=== PATIENT | male | born 1955 | race Caucasian/White ===

== ENCOUNTER 2021-04-10 20:58 | Inpatient (IN) | payer MEDICAID, OTHER ==
[~2021-04-10] VITALS: Ht 185.4 cm; Wt 91.0 kg
[2021-04-10] MEDS ORDERED: SODIUM CHLORIDE 0.9% 1,000 ML IV ONE (21:30)
[2021-04-10] MEDS ORDERED: MORPHINE SULFATE 4 MG/ML SYR/VIAL IV ONE ×2 (21:30→23:30)
[2021-04-10 21:48] LABS: Basophils # (auto) 0.1 10 ^3/uL (0-0.2); Basophils % (auto) 0.7 % (0.0-2.0); Eosinophils # (auto) 0 10 ^3/uL (0-0.8); Eosinophils % (auto) 0.4 % (0.0-7.0); Hematocrit 40.5 % (41.0-53.0); Hemoglobin 13.4 g/dL (13.5-17.5); Lymphocytes # (auto) 1.1 10 ^3/uL (0.4-5.4); Mean Corpuscular Hemoglobin 30.2 pg (28.0-32.0); Mean Corpuscular Volume 91.6 fL (80.0-100.0); Monocytes # (auto) 0.5 10 ^3/uL (0-1.3); Monocytes % (auto) 4.6 % (0.0-12.0); Neutrophils # (auto) 9.5 10 ^3/uL (1.6-8.6); Neutrophils % (auto) 84.3 % (37.0-80.0); Red Blood Cells 4.42 10^6/uL (4.5-5.90); Red Cell Distribution Width 14.1 % (11.8-14.3); White Blood Cell 11.2 10^3/uL (4.4-10.8)
[2021-04-10 21:55] LABS: Albumin 3.5 g/dL (3.4-5.0); Calcium 9.4 mg/dL (8.5-10.1); Potassium 3.9 mmol/L (3.5-5.1)
[2021-04-10 21:58] LABS: BUN/Creatinine Ratio 9.9; Total Protein 7.7 g/dL (6.4-8.2)
[2021-04-10 23:04] LABS: Urine Bacteria MOD /hpf (None Seen); Urine Blood 3+ /uL (Negative); Urine Budding Yeast MANY /hpf (None Seen); Urine Mucus FEW (None Seen); Urine WBC 13 /hpf (0 - 3)
[2021-04-10 23:11] LABS: Urine Specific Gravity 1.024 (1.001-1.035)
[2021-04-10] MEDS ORDERED: cefTRIAXone SOD 1,000 MG VL IV ONE (23:30)
[2021-04-11] MEDS ORDERED: ONDANSETRON HCL 4 MG/2 ML VIAL IV PRN (00:45)
[2021-04-11] MEDS ORDERED: ACETAMINOPHEN 325 MG TAB PO PRN (00:45)
[2021-04-11] MEDS ORDERED: MANNITOL FTV 25% 12.5 GM/50 ML 50 ML IV ONE (08:45)
[2021-04-11] MEDS ORDERED: PANTOPRAZOLE 40 MG TAB PO SCH (10:00)
[2021-04-11] MEDS: D5W/SOD CHLO 0.9% 1,000 ML IV SCH (11:11)
[2021-04-11 17:18] VITALS: BP 136/70
[2021-04-11 20:00] VITALS: BP 129/77
[2021-04-11] MEDS: cefTRIAXone 1GM/50ML D5W 50 ML IV SCH (21:05)
[2021-04-11 22:00] VITALS: BP 123/69
[2021-04-11] MEDS: HYDROcodone-ACET 5/325MG TAB PO PRN (23:24)
[2021-04-12] MEDS: D5W/SOD CHLO 0.9% 1,000 ML IV SCH (03:40)
[2021-04-12 07:02] LABS: Calcium 8.9 mg/dL (8.5-10.1); Potassium 4.1 mmol/L (3.5-5.1)
[2021-04-12 07:16] LABS: Basophils # (auto) 0 10 ^3/uL (0-0.2); Basophils % (auto) 0.3 % (0.0-2.0); Eosinophils # (auto) 0 10 ^3/uL (0-0.8); Eosinophils % (auto) 0.3 % (0.0-7.0); Hematocrit 39.5 % (41.0-53.0); Hemoglobin 13.1 g/dL (13.5-17.5); Lymphocytes # (auto) 0.8 10 ^3/uL (0.4-5.4); Mean Corpuscular Hemoglobin 30.5 pg (28.0-32.0); Mean Corpuscular Hgb Conc. 33.2 g/dL (32.0-36.0); Mean Corpuscular Volume 91.9 fL (80.0-100.0); Monocytes # (auto) 0.4 10 ^3/uL (0-1.3); Monocytes % (auto) 4.5 % (0.0-12.0); Neutrophils # (auto) 7.7 10 ^3/uL (1.6-8.6); Neutrophils % (auto) 85.9 % (37.0-80.0); Red Cell Distribution Width 14.1 % (11.8-14.3); White Blood Cell 8.9 10^3/uL (4.4-10.8)
[2021-04-12] MEDS: HYDROcodone-ACET 5/325MG TAB PO PRN ×2 (08:11→20:36)
[2021-04-12 09:00] VITALS: BP 142/77
[2021-04-12] MEDS: MORPHINE SULFATE 4 MG/ML SYR/VIAL IV PRN ×2 (09:23→16:37)
[2021-04-12] MEDS: SODIUM CHLORIDE 0.9% 1,000 ML IV SCH ×2 (09:45→10:45)
[2021-04-12 13:00] VITALS: BP 148/85
[2021-04-12 17:00] VITALS: BP 150/88
[2021-04-12] MEDS: cefTRIAXone 1GM/50ML D5W 50 ML IV SCH (20:36)
[2021-04-12 22:00] VITALS: BP 129/87
[2021-04-13 01:38] LABS: Urine Bacteria NONE SEEN /hpf (None Seen); Urine Blood 2+ /uL (Negative); Urine Mucus FEW (None Seen); Urine Specific Gravity 1.015 (1.001-1.035); Urine WBC 2 /hpf (0 - 3)
[2021-04-13 02:24] LABS: Protein, Urine 23.2 mg/dL (0.0-11.9)
[2021-04-13 05:00] VITALS: BP 132/88
[2021-04-13 08:50] VITALS: BP 125/87
[2021-04-13] MEDS: HYDROcodone-ACET 5/325MG TAB PO PRN ×2 (10:41→16:48)
[2021-04-13 13:00] VITALS: BP 139/86
[2021-04-13 17:00] VITALS: BP 119/83
[2021-04-13] MEDS: SODIUM CHLORIDE 0.9% 1,000 ML IV SCH (17:34)
[2021-04-13] MEDS: cefTRIAXone 1GM/50ML D5W 50 ML IV SCH (21:00)
[2021-04-13 22:00] VITALS: BP 143/93
[2021-04-14 05:22] LABS: Basophils # (auto) 0 10 ^3/uL (0-0.2); Basophils % (auto) 0.4 % (0.0-2.0); Eosinophils # (auto) 0 10 ^3/uL (0-0.8); Eosinophils % (auto) 0.3 % (0.0-7.0); Hematocrit 37.5 % (41.0-53.0); Hemoglobin 12.7 g/dL (13.5-17.5); Lymphocytes % (auto) 10.5 % (10.0-50.0); Mean Corpuscular Hemoglobin 30.6 pg (28.0-32.0); Mean Corpuscular Hgb Conc. 33.9 g/dL (32.0-36.0); Mean Corpuscular Volume 90.3 fL (80.0-100.0); Monocytes # (auto) 0.7 10 ^3/uL (0-1.3); Monocytes % (auto) 7.9 % (0.0-12.0); Neutrophils # (auto) 7.4 10 ^3/uL (1.6-8.6); Neutrophils % (auto) 80.9 % (37.0-80.0); Nucleated Red Blood Cells % 0.1 %; Red Blood Cells 4.16 10^6/uL (4.5-5.90); Red Cell Distribution Width 14.4 % (11.8-14.3); White Blood Cell 9.2 10^3/uL (4.4-10.8)
[2021-04-14 05:30] VITALS: BP 131/77
[2021-04-14 05:41] LABS: Potassium 3.6 mmol/L (3.5-5.1)
[2021-04-14 06:00] LABS: Albumin 2.7 g/dL (3.4-5.0); BUN/Creatinine Ratio 11.1; Bilirubin, Total 0.9 mg/dL (0.2-1.0); Calcium 8.8 mg/dL (8.5-10.1); Total Protein 6.6 g/dL (6.4-8.2)
[2021-04-14] MEDS: SODIUM CHLORIDE 0.9% 1,000 ML IV SCH (08:16)
[2021-04-14 09:03] VITALS: BP 104/65
[2021-04-14 13:00] VITALS: BP 103/67
[2021-04-14 17:00] VITALS: BP 121/83
[2021-04-14] MEDS ORDERED: CIPR500T4 PO (17:05)
[2021-04-14] MEDS ORDERED: PERCOT PO (17:05)
[2021-04-14] MEDS ORDERED: TAM04C PO (17:08)
[2021-04-14] MEDS: cefTRIAXone 1GM/50ML D5W 50 ML IV SCH (21:13)
[2021-04-14 22:00] VITALS: BP 104/50
[2021-04-15 05:00] VITALS: BP 121/79
[2021-04-15 09:00] VITALS: BP 100/69
[2021-04-15 13:39] VITALS: BP 103/76
[2021-04-15 17:00] VITALS: BP 117/73
[2021-04-15] MEDS: TAMSULOSIN HYDROCHLORIDE 0.4 MG CAP PO SCH ×2 (17:49→18:00)
[2021-04-15] MEDS: cefTRIAXone 1GM/50ML D5W 50 ML IV SCH (20:41)
[2021-04-15 22:00] VITALS: BP 126/77
[2021-04-16 05:00] VITALS: BP 106/62
[2021-04-16 08:52] VITALS: BP 109/70
== END 2021-04-16 11:00 | disposition left against medical advice (07) | DRG 690 ==
LOC: ER 20:58 → OVERFLOW 04-11 00:45 → CENTRAL 04-11 05:25 → TELE-CENTR 04-13 14:28
PROVIDERS: ADMIT Nurse Practitioner; ATTEND Family Medicine
DX: N13.6 Pyonephrosis (principal); N17.9 Acute kidney failure, unspecified; I12.9 Hypertensive chronic kidney disease with stage 1 through stage 4 chronic kidney disease, or unspecified chronic kidney disease; N18.30 Chronic kidney disease, stage 3 unspecified; F17.210 Nicotine dependence, cigarettes, uncomplicated; K80.20 Calculus of gallbladder without cholecystitis without obstruction; Z20.822 Contact with and (suspected) exposure to COVID-19; K57.90 Diverticulosis of intestine, part unspecified, without perforation or abscess without bleeding; Z88.0 Allergy status to penicillin
CPT/HCPCS: 36415; 74176; 74181; 78226; 80048; 80053; 81001; 82570; 83690; 84154; 84156; 84300; 84484; 85025; 87086; 87426; 93005; 96361; 96374; 96375; G0378; J0696

== ENCOUNTER 2024-09-19 08:25 | Inpatient (IN) | payer OTHER, MEDICAID ==
[~2024-09-19] VITALS: Ht 185.4 cm; Wt 87.1 kg
[2024-09-19] VITALS (8 sets, daily range): BP systolic 98–115; BP diastolic 60–72; PULSE 102–112; RESP 16–24; TEMP 97.5–98.6; O2SAT 93–97
[~2024-09-19 08:25] MED LIST: CIPR500T4 PO; PERCOT PO; TAMS-35 PO
--- NOTE | 2024-09-19 09:09 | ED.PDOC ---
History of Present Illness HPI Comments 69-year-old male came to the ER stating that he has been having shortness a breath for the past week. He continues to smoke cigarettes. History of COPD. Denies any other past medical surgical history. He has been seen for similar condition several months ago at this hospital. States that his last smoke he had was a week ago. He is unable to ambulate without being short of breath. He is not on oxygen at home. Denies any other symptoms. Time Seen by MD: 08:51 Primary Care Provider: UNK Reviewed Notes: Nurses Notes, Medications, Allergies Allergies: Coded Allergies: Penicillins (Verified Allergy, Unknown, 04/10/21) Home Meds Active Scripts Tamsulosin Hcl (Flomax) 0.4 Mg Cap, 0.4 MG PO QPM for 30 Days, #30 CAP Prov:KAMALJIT ALMONTE MD 04/14/21 Oxycodone W/ Acetaminophen (Percocet 5/325MG) 1 Tab Tb, 1 TAB PO BID for 7 Days, #14 TAB 0 Refills Prov:KAMALJIT ALMONTE MD 04/14/21 Ciprofloxacin Hcl (Ciprofloxacin Hcl) 500 Mg Tab, 1 TAB PO BID for 7 Days, #14 TAB Prov:KAMALJIT ALMONTE MD 04/14/21 Information Source: Patient Mode of Arrival: Wheelchair Severity: Moderate Timing: Days Duration: Since onset Past Medical History PAST MEDICAL HISTORY: COPD, Denies Surgical History: Denies all surgeries Family History Family History: Unknown Social History Smoker: Cigarettes Alcohol: Denies ETOH Use Drugs: Denies Drug Use Constitutional: denies: chills, diaphoresis, fatigue, fever, malaise, sweats, weakness, others EENTM: denies: blurred vision, double vision, ear bleeding, ear discharge, ear drainage, ear pain, ear ringing, eye pain, eye redness, hearing loss, mouth pain, mouth swelling, nasal discharge, nose bleeding, nose congestion, nose pain, photophobia, tearing, throat pain, throat swelling, voice changes, others Respiratory: reports: shortness of breath; denies: cough, hemoptysis, orthopnea, SOB at rest, SOB with excertion, stridor, wheezing, others Cardiovascular: denies: chest pain, dizzy spells, diaphoresis, Dyspnea on exertion, edema, irregular heart beat, left arm pain, lightheadedness, palpitations, PND, syncope, others Gastrointestinal: denies: abdomen distended, abdominal pain, blood streaked bowels, constipated, diarrhea, dysphagia, difficulty swallowing, hematemesis, melena, nausea, poor appetite, poor fluid intake, rectal bleeding, rectal pain, vomiting, others Genitourinary: denies: burning, dysuria, flank pain, frequency, hematuria, incontinence, penile discharge, penile sore, pain, testicle pain, testicle swelling, urgency, others Neurological: denies: dizziness, fainting, headache, left sided numbness, left sided weakness, numbness, paresthesia, pre-existing deficit, right sided numbness, right sided weakness, seizure, speech problems, tingling, tremors, weakness, others Musculoskeletal: denies: back pain, gout, joint pain, joint swelling, muscle pain, muscle stiffness, neck pain, others Integumetry: denies: bruises, change in color, change in hair/nails, dryness, laceration, lesions, lumps, rash, wounds, others Allergic/Immunocompromised: denies: Difficulty Healing, Frequent Infections, Hives, Itching, others Hematologic/Lymphatic: denies: anemia, blood clots, easy bleeding, easy bruising, swollen glands, others Endocrine: denies: excessive hunger, excessive sweating, excessive thirst, excessive urination, flushing, intolerance to cold, intolerance to heat, unexplained weight gain, unexplained weight loss, others Psychiatric: denies: anxiety, bipolar disorder, depression, hopeless, panic disorder, schizophrenia, sleepless, suicidal, others Physical Exam General Appearance: Moderate Distress HEENT: Normal ENT Inspection, Pharynx Normal, TMs Normal Neck: Full Range of Motion, Non-Tender, Normal, Normal Inspection Respiratory: Other (Coarse breath sounds) Cardiovascular: No Edema, No JVD, No Murmur, No Gallop, Normal Peripheral Pulses, Tachycardia Breast Exam: Deferred Gastrointestinal: No Organomegaly, Non Tender, No Pulsatile Mass, Normal Bowel Sounds, Soft Genitalia: Deferred Pelvic: Deferred Rectal: Deferred Extremities: No calf tenderness, Normal capillary refill, Normal inspection, Normal range of motion, Non-tender, No pedal edema Musculoskeletal : Apperance: Normal Neurologic: Alert, graphic art designer II-XII nml as Tested, No Motor Deficits, Normal Affect, Normal Mood, No Sensory Deficits Cerebellar Function: NOT DONE Reflexes: NOT DONE Skin: Dry, Normal Color, Warm Peripheral Pulses: 3+ Radial (R), 3+ Radial (L) Lymphatic: No Adenopathy Was a procedure done? Was a procedure done?: No EKG EKG : Pulse Rate (adult): 102 Cardiac Rhythm: NSR Differential Dx Considerations may include: COPD Electrolyte imbalance X-Ray, Labs, Meds, VS Vital Signs Date Time Temp Pulse Resp B/P (MAP) Pulse Ox O2 Delivery O2 Flow Rate FiO2 09/19/24 09:29 16 93 Room Air* 0 21 09/19/24 09:23 102 09/19/24 09:20 102 09/19/24 09:14 97.4 100 18 97/65 (76) 94 97.4 Current Medications Medications (Trade) Dose Ordered Sig/Callie Route Start Time Stop Time Status Last Admin Albuterol (Ventolin Medneb) 5 mg ONCE ONCE NEB 09/19/24 09:15 09/19/24 09:16 DC 09/19/24 09:29 Ipratropium [place] (Atrovent Medneb) 0.5 mg ONCE ONCE NEB 09/19/24 09:15 09/19/24 09:16 DC 09/19/24 09:29 [place] [id number] Ph: [phone] DIAGNOSTIC IMAGING Diagnostic Imaging Report : [id number] Signed PATIENT: JOSIANE WARD ACCT: [id number] UNIT: [id number] : 1955 LOC: ER ROOM / BED: / AGE / SEX: 69 / M ADM STATUS: REG ER SERVICE ORDERING PHYSICIAN: MONE BORGES MD PROCEDURE(s): CXRP - CHEST PORTABLE REASON: sob ORDER NUMBER(s): [id number], ACCESSION NUMBER(s): [id number] CHEST RADIOGRAPH Indication: sob Technique: Single frontal view of the chest was obtained COMPARISON: None FINDINGS: Lines and Tubes: None Lungs: Bibasilar subsegmental atelectasis Pleura: No effusion. No pneumothorax. Cardiomediastinal contours: Unremarkable Bones: Unremarkable IMPRESSION: Bibasilar subsegmental atelectasis. ATED BY: JEAN CARLOS KNIGHT MD DICTATED DATE/TIME: 09/19/24940 SIGNED BY: JEAN CARLOS KNIGHT MD SIGNED DATE/TIME: 09/19/24940 CC: Patient alert. Complaining of shortness a breath. Continues to smoke cigarettes. Vitals stable. Counseled patient on effects of smoking cigarettes for 15 minutes. No leg swelling. COPD exacerbation. Was given steroid. Was given breathing treatment. Reviewed his previous visit. Explained to the patient. Continue monitoring. Time of 1ST Reevaluation: 09:08 Reevaluation 1ST: Unchanged Patient Education/Counseling: Diagnosis, Treatment, Prognosis Family Education/Counseling: No Family Present SEPSIS Sepsis Screen Physician Orders Troponin-I Hs (09/19/24 09:04) Complete Blood Count (09/19/24 09:04) Chest Portable (09/19/24 09:04) Urinalysis (09/19/24 09:04) Basic Metabolic Panel (09/19/24 09:04) Troponin-I Hs (09/19/24 10:04) Troponin-I Hs (09/19/24 12:04) Sodium Chloride 0.9% (09/19/24 09:30) Ceftriaxone 1gm/50ml D5w (Rocephin) (09/19/24 09:30) Azithromycin 500mg/ 250ml (Zithromax 50 (09/19/24 09:30) Vital Signs Date Time Temp Pulse Resp B/P (MAP) Pulse Ox O2 Delivery O2 Flow Rate FiO2 09/19/24 09:29 16 93 Room Air* 0 21 09/19/24 09:23 102 09/19/24 09:20 102 09/19/24 09:14 97.4 100 18 97/65 (79) 94 97.4 Medications Medications Dose Ordered Sig/Callie Route Start Time Stop Time Status Last Admin Dose Admin Albuterol 5 mg ONCE ONCE NEB 09/19/24 09:15 09/19/24 09:16 DC 09/19/24 09:29 Ipratropium [place] 0.5 mg ONCE ONCE NEB 09/19/24 09:15 09/19/24 09:16 DC 09/19/24 09:29 Departure 1 Departure Time of Disposition: 09:08 Impression: Primary Impression: Acute respiratory distress Additional Impression: COPD exacerbation Disposition: 09 ADMITTED INPATIENT Admit to: Med Surg Condition: Guarded Critical Care Note Critical Care Time?: Yes (90 min-critical care time only) Critical care comment: Shortness a breath continue to monitor Stability Stability form required: No Heart Score Heart Score: Heart Score Response (Comments) Value History N/A 0 EKG N/A 0 Age N/A 0 Risk Factors N/A 0 Troponin N/A 0 Total 0 I personally scribed for MONE BORGES MD ([email or web address]) on 09/19/24 at 09:46. Electronically submitted by Nereyda Hussein ([email or web address]). MONE BORGES MD Sep 19, 2024 09:09
--- NOTE | 2024-09-19 09:28 | ECG ---
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
[2024-09-19] MEDS: ALBUTEROL SULF 2.5 MG/0.5ML(0.5%) NEB SOLN NEB ONE (09:29)
[2024-09-19] MEDS: IPRATROPIUM BROM 0.5 MG/2.5ML INH SOL NEB ONE (09:29)
--- NOTE | 2024-09-19 09:43 | DVH ---
CHEST RADIOGRAPH Indication: sob Technique: Single frontal view of the chest was obtained COMPARISON: None FINDINGS: Lines and Tubes: None Lungs: Bibasilar subsegmental atelectasis Pleura: No effusion. No pneumothorax. Cardiomediastinal contours: Unremarkable Bones: Unremarkable IMPRESSION: Bibasilar subsegmental atelectasis.
[2024-09-19 10:03] LABS: Hematocrit 36.3 % (41.0-53.0); Hemoglobin 12.3 g/dL (13.5-17.5); Mean Corpuscular Hemoglobin 31.1 pg (28.0-32.0); Mean Corpuscular Volume 92.1 fL (80.0-100.0); Nucleated Red Blood Cells % 0.1 %
[2024-09-19 10:15] LABS: Anion Gap 10 (5-15); Carbon Dioxide 22 mmol/L (20-31); Potassium 4.1 mmol/L (3.5-5.1); Sodium 140 mmol/L (136-145)
[2024-09-19 10:16] LABS: Calcium 10.4 mg/dL (8.7-10.4)
[2024-09-19 10:21] LABS: BUN/Creatinine Ratio 14.4 (10.0-20.0); Blood Urea Nitrogen 19 mg/dL (9-23); Chloride 108 mmol/L (98-107); Glucose 117 mg/dL (74-106)
[2024-09-19] MEDS: SODIUM CHLORIDE 0.9% 1,000 ML IV ONE (11:03)
[2024-09-19] MEDS: cefTRIAXone 1GM/50ML D5W 50 ML IV ONE (11:04)
[2024-09-19] MEDS: methylPREDNISolone SOD SUCC 125 MG/2 ML VL IV ONE (11:06)
[2024-09-19] MEDS: AZITHROMYCIN 500MG/ 250ML 250 ML IV ONE (11:43)
[2024-09-19] MEDS ORDERED: ALBUTEROL SULF 2.5 MG/0.5ML(0.5%) NEB SOLN NEB PRN (12:45)
[2024-09-19] MEDS ORDERED: IPRATROPIUM BROM 0.5 MG/2.5ML INH SOL NEB PRN (12:45)
[2024-09-19] MEDS ORDERED: ACETAMINOPHEN 325 MG TAB PO PRN (12:45)
[2024-09-19] MEDS ORDERED: DOCUSATE SOD 100 MG CAP PO PRN (12:45)
[2024-09-19] MEDS ORDERED: ONDANSETRON HCL 4 MG/2 ML VIAL IV PRN (12:45)
--- NOTE | 2024-09-19 12:59 | DVHHP2 ---
History of Present Illness Reason for Visit: Shortness of breath History of Present Illness Jonatan Griffin is a 69-year-old male with past medical history of COPD, but he does not go to a primary care provider routinely and does not take any medications. He came to the hospital due to shortness of breath and coughing up blood.. He states he usually is able to complete all his ADL's without any shortness of breath, but has been having difficulty walking short distances due to shortness of breath for about a week and he has been coughing for about 5 days. Pulmonary: COPD Past Surgical History: None Smoke: Quit (1 week) ALCOHOL: none Drugs: Marijuana Lives: Friends Domestic Violence: Neg Review of Systems Constitutional: Yes: Weakness, Malaise; No: Fever, Chills, Sweats, Other Eyes: No: Pain, Vision change, Conjunctivae inflammation, Eyelid inflammation, Other, Redness ENT: No: Ear pain, Ear discharge, Nose pain, Nose discharge, Nose congestion, Mouth pain, Mouth swelling, Throat pain, Throat swelling, Other Respiratory: Cough, Shortness of breath, Hemoptysis; No: Dry, SOB with excertion, Wheezing, Pleuritic Pain, Sputum, Wheezing, Other Cardiovascular: No: Chest Pain, Palpitations, Orthopnea, Paroxysmal Noc. Dyspnea, Edema, Lt Headedness, Other Gastrointestinal: No: Nausea, Vomiting, Abdominal Pain, Diarrhea, Constipation, Melena, Hematochezia, Other Genitourinary: No Dysuria, No Frequency, No Incontinence, No Hematuria, No Retention, No Other Musculoskeletal: No: other, neck pain, shoulder pain, arm pain, back pain, hand pain, leg pain, foot pain Skin: No: Rash, Lesions, Jaundice, Bruising, Other Neurological: No: Weakness, Numbness, Incoordination, Change in speech, Confusion, Seizures, Other Allergies: Coded Allergies: Penicillins (Verified Allergy, Unknown, 04/10/21) Medications Current Medications Medications Dose Ordered Sig/Callie Route Start Time Stop Time Status Last Admin Dose Admin Sodium Chloride 10 ml Q8HR IV 09/19/24 14:00 UNV Acetaminophen/ Hydrocodone Bitart 1 tab Q4HP PRN PO 09/19/24 12:45 UNV Ondansetron HCl 4 mg Q4HP PRN IV 09/19/24 12:45 UNV Docusate Sodium 100 mg BIDPRN PRN PO 09/19/24 12:45 UNV Acetaminophen 650 mg Q6HP PRN PO 09/19/24 12:45 UNV Methylprednisolone Sodium Succinate 40 mg BID IV 09/19/24 22:00 UNV Albuterol 2.5 mg Q4HPRN PRN NEB 09/19/24 12:45 UNV Ipratropium Trenary 0.5 mg Q4HPRN PRN NEB 09/19/24 12:45 UNV Exam Vital Signs Vital Signs Date Time Temp Pulse Resp B/P (MAP) Pulse Ox O2 Delivery O2 Flow Rate FiO2 09/19/24 11:15 102 24 104/60 (75) 94 09/19/24 10:29 97.5 97.5 09/19/24 09:29 Room Air* 0 21 General Appearance: Alert, Oriented X3, Cooperative, mild distress HEENT: Atraumatic, PERRLA, Other (Mucous Membr dry) Respiratory: Other (Diminished breath sounds) Cardiovascular: Regular rate, Normal S1, Normal S2 Abdominal: Normal bowel sounds, Soft, No tenderness Extremities: No clubbing, No cyanosis, No edema, Normal pulses, No tenderness/swelling Skin: No rashes, No breakdown, No significant lesion Neuro: Normal speech, Other (generalized weakness) Psych/Mental Status: Mental status NL, Mood NL Labs/Xrays Labs Test 09/19/24 10:37 09/19/24 09:31 Range/Units Troponin I High Sensitivity 51 </=54 ng/L White Blood Count 5.7 4.4-10.8 10^3/uL Red Blood Count 3.95 L 4.5-5.90 10^6/uL Hemoglobin 12.3 L 13.5-17.5 g/dL Hematocrit 36.3 L 41.0-53.0 % Mean Corpuscular Volume 92.1 80.0-100.0 fL Mean Corpuscular Hemoglobin 31.1 28.0-32.0 pg Mean Corpuscular Hemoglobin Concent 33.8 32.0-36.0 g/dL Red Cell Distribution Width 16.3 H 11.8-14.3 % Platelet Count 202 140-450 10^3/uL Mean Platelet Volume 7.7 6.9-10.8 fL Neutrophils (%) (Auto) 78.3 37.0-80.0 % Lymphocytes (%) (Auto) 15.9 10.0-50.0 % Monocytes (%) (Auto) 4.4 0.0-12.0 % Eosinophils (%) (Auto) 0.9 0.0-7.0 % Basophils (%) (Auto) 0.5 0.0-2.0 % Neutrophils # (Auto) 4.4 1.6-8.6 10 ^3/uL Lymphocytes # (Auto) 0.9 0.4-5.4 10 ^3/uL Monocytes # (Auto) 0.3 0-1.3 10 ^3/uL Eosinophils # (Auto) 0 0-0.8 10 ^3/uL Basophils # (Auto) 0 0-0.2 10 ^3/uL Nucleated Red Blood Cells 0.1 % Sodium Level 140 136-145 mmol/L Potassium Level 4.1 3.5-5.1 mmol/L Chloride Level 108 H 98-107 mmol/L Carbon Dioxide Level 22 20-31 mmol/L Anion Gap 10 5-15 Blood Urea Nitrogen 19 9-23 mg/dL Creatinine 1.32 H 0.700-1.30 mg/dL Glomerular Filtration Rate Calc 58 >90 mL/min BUN/Creatinine Ratio 14.4 10.0-20.0 Serum Glucose 117 H 74-106 mg/dL Calcium Level 10.4 8.7-10.4 mg/dL CHEST RADIOGRAPH FINDINGS: Lines and Tubes: None Lungs: Bibasilar subsegmental atelectasis Pleura: No effusion. No pneumothorax. Cardiomediastinal contours: Unremarkable Bones: Unremarkable IMPRESSION: Bibasilar subsegmental atelectasis. SEPSIS Sepsis Screen Date sepsis recognized/suspect: Sep 19, 2024 Time Sepsis recognized/suspect: 910 Recent Procedure: No On Antibiotic Therapy: No Respiratory Rate >20: No Heart Rate >90: Yes Temp<36 C (96.8 F) or >38.3 C: No SBP <90 or MAP <65 mmHG: No New Acute Mental Status Change: No Is the patient on CPAP, BIPAP,: No Physician Orders Chest Portable (09/19/24 09:04) Urinalysis (09/19/24 09:04) Troponin-I Hs (09/19/24 12:04) Lactic Acid W/ Reflex Order (09/19/24 12:39) Admit (09/19/24 12:39) Code Status (09/19/24 12:39) 2 Gm Sodium Diet (09/19/24 Lunch) Sodium Chloride Lock (Saline Lock Ns) (09/19/24 14:00) Hydrocodone-Acet 5/325mg Tab ([place] 32 (09/19/24 12:45) Ondansetron Hcl (Zofran) (09/19/24 12:45) Docusate Sodium Capsule (Colace Capsule) (09/19/24 12:45) Complete Blood Count (09/20/24 04:00) Comprehensive Metabolic Panel (09/20/24 04:00) Condition: Serious (09/19/24 12:39) Acetaminophen Tablet (Tylenol Tablet) (09/19/24 12:45) Methylprednisolone Sod Succ (Solu Medrol (09/19/24 22:00) Albuterol Medneb (Ventolin Medneb) (09/19/24 12:45) Ipratropium Medneb (Atrovent Medneb) (09/19/24 12:45) Azithromycin 500mg/ 250ml (Zithromax 50 (09/20/24 10:00) Ceftriaxone Ivpb Rocephin (09/20/24 09:00) Vital Signs Date Time Temp Pulse Resp B/P (MAP) Pulse Ox O2 Delivery O2 Flow Rate FiO2 09/19/24 11:15 102 24 104/60 (75) 94 09/19/24 10:29 101 09/19/24 10:29 97.5 101 20 92/56 (68) 92 97.5 09/19/24 09:29 16 93 Room Air* 0 21 09/19/24 09:23 102 09/19/24 09:20 102 09/19/24 09:14 97.4 100 18 97/65 (76) 94 97.4 Laboratory Tests Test 09/19/24 09:31 White Blood Count 5.7 10^3/uL (4.4-10.8) Medications Medications Dose Ordered Sig/[place] Route Start Time Stop Time Status Last Admin Dose Admin Albuterol 5 mg ONCE ONCE NEB 09/19/24 09:15 09/19/24 09:16 DC 09/19/24 09:29 5 MG Azithromycin 250 ml @ 125 mls/hr ONCE ONCE IV 09/19/24 09:30 09/19/24 11:29 DC 09/19/24 11:43 125 MLS/HR Ceftriaxone Sodium 50 ml @ 100 mls/hr ONCE ONCE IV 09/19/24 09:30 09/19/24 09:59 DC 09/19/24 11:04 100 MLS/HR Ipratropium Trenary 0.5 mg ONCE ONCE NEB 09/19/24 09:15 09/19/24 09:16 DC 09/19/24 09:29 0.5 MG Methylprednisolone Sodium Succinate 125 mg ONCE ONCE IV 09/19/24 09:15 09/19/24 09:16 DC 09/19/24 11:06 125 MG Sodium Chloride 1,000 ml @ 1,000 mls/hr Q1H ONCE IV 09/19/24 09:30 09/19/24 10:29 DC 09/19/24 11:03 1,000 MLS/HR Assessment/Plan Assessment/Plan Assessment: COPD exacerbation, Possible pneumonia, Hemoptysis, Plan: Admit to Tele, Supplemental oxygen as needed, IV antibiotics, IV steroids, Breathing treatments as needed, Supplemental oxygen as needed, Plan discussed with: Patient My Orders Orders - HAYLEE DAVID NEWSPAPER COPY EDITOR Procedure Category Date Status Time Lactic Acid W/ Reflex LAB 09/19/24 Logged Order 12:39 Admit ADMIT 09/19/24 Transmitted 12:39 Code Status CODE 09/19/24 Transmitted 12:39 2 Gm Sodium Diet DIET 09/19/24 Transmitted Lunch Sodium Chloride Lock PHA 09/19/24 Logged (Saline Lock Ns) 14:00 Hydrocodone-Acet PHA 09/19/24 Logged 5/325mg Tab ([place] 12:45 Ondansetron Hcl PHA 09/19/24 Logged (Zofran) 12:45 Docusate Sodium PHA 09/19/24 Logged Capsule (Colace 12:45 Complete Blood Count LAB 09/20/24 Verified 04:00 Comprehensive LAB 09/20/24 Verified Metabolic Panel 04:00 Condition: Serious JAMES 09/19/24 In Process 12:39 Acetaminophen Tablet PHA 09/19/24 Logged (Tylenol Tablet) 12:45 Methylprednisolone PHA 09/19/24 Logged Sod Succ (Solu Medrol 22:00 Albuterol Medneb PHA 09/19/24 Logged (Ventolin Medneb) 12:45 Ipratropium Medneb PHA 09/19/24 Logged (Atrovent Medneb) 12:45 Azithromycin 500mg/ PHA 09/20/24 Verified 250ml (Zithromax 50 10:00 Ceftriaxone Ivpb PHA 09/20/24 Verified Rocephin 09:00 Date of Service: Sep 19, 2024 Billing Provider: HAYLEE DAVID Common Visit Codes: [id number] INP/OBS CARE (MOD) HAYLEE DAVID Sep 19, 2024 12:59
[2024-09-19] MEDS: SODIUM CHLOR 0.9% PF (SALINE LOCK) 10ML VIAL/SYR IV SCH (14:05)
[2024-09-19] MEDS: guaiFENesin-CODEINE Liq 5 ML UD PO PRN (18:40)
[2024-09-19 20:37] LABS: Urine Protein, UAD TRACE (Negative)
[2024-09-19] MEDS: methylPREDNISolone SOD SUCC 40 MG/ML VL IV SCH (21:14)
[2024-09-19] MEDS: HYDROcodone-ACET 5/325MG TAB PO PRN (21:23)
[2024-09-20] VITALS (11 sets, daily range): BP systolic 98–111; BP diastolic 61–78; PULSE 101–114; RESP 16–19; TEMP 89–98.1; O2SAT 92–100
[2024-09-20 06:24] LABS: Hematocrit 34.5 % (41.0-53.0); Hemoglobin 11.7 g/dL (13.5-17.5); Mean Corpuscular Hemoglobin 31.2 pg (28.0-32.0); Mean Corpuscular Volume 91.9 fL (80.0-100.0); Nucleated Red Blood Cells % 0.0 %
[2024-09-20 06:51] LABS: Alanine Aminotransferase 9 U/L (7-40); Albumin 3.8 g/dL (3.2-4.8); Alkaline Phosphatase 54 U/L (46-116); Anion Gap 12 (5-15); BUN/Creatinine Ratio 17.3 (10.0-20.0); Bilirubin, Total 1.5 mg/dL (0.2-1.0); Blood Urea Nitrogen 22 mg/dL (9-23); Calcium 10.1 mg/dL (8.7-10.4); Carbon Dioxide 21 mmol/L (20-31); Chloride 106 mmol/L (98-107); Glucose 140 mg/dL (74-106); Potassium 4.8 mmol/L (3.5-5.1); Sodium 139 mmol/L (136-145); Total Protein 6.4 g/dL (5.7-8.2)
[2024-09-20] MEDS: AZITHROMYCIN 500MG/ 250ML 250 ML IV SCH (09:31)
[2024-09-20] MEDS: cefTRIAXone 1GM/50ML D5W 50 ML IV SCH (09:31)
--- NOTE | 2024-09-20 14:17 | DVHPN2 ---
Subjective Continues to report having shortness of breath. Reviewed: Care Plan, H&P, Labs, Medications Changes from previous H/P or p: No Changes General: Per HPI Eyes: No Pain, No Vision change, No Conjunctivae inflammation, No Eyelid inflammation, No Other, No Redness ENT: No Ear pain, No Ear discharge, No Nose pain, No Nose discharge, No Nose congestion, No Mouth pain, No Mouth swelling, No Throat pain, No Throat swelling, No Other Cardiovascular: No Chest Pain, No Palpitations, No Orthopnea, No Paroxysmal Noc. Dyspnea, No Edema, No Lt Headedness, No Other Respiratory: Cough; No Dry; Shortness of breath; No SOB with excertion, No Wheezing; Hemoptysis; No Pleuritic Pain, No Sputum, No Other Gastrointestinal: No Nausea, No Vomiting, No Abdominal Pain, No Diarrhea, No Constipation, No Melena, No Hematochezia, No Other Genitourinary: No Dysuria, No Frequency, No Incontinence, No Hematuria, No Retention, No Other Musculoskeletal: No other, No neck pain, No shoulder pain, No arm pain, No back pain, No hand pain, No leg pain, No foot pain Skin: No Rash, No Lesions, No Jaundice, No Bruising, No Other Objective Vitals Vital Signs Date Time Temp Pulse Resp B/P (MAP) Pulse Ox O2 Delivery O2 Flow Rate FiO2 09/20/24 12:26 97.5 114 17 111/78 (89) 96 97.5 09/20/24 08:10 Room Air* 0 21 Intake/Output Intake and Output 09/20/24 07:00 Intake Total 1525 ml Balance 1525 ml Intake Oral 350 ml IV Total 1175 ml # Voids 2 General Appearance: Alert, Oriented X3, Cooperative, mild distress HEENT: Atraumatic, PERRLA Lungs: Other (Decreased breath sounds bilaterally) Cardiovascular: Normal S1, Normal S2 Abdomen: Normal bowel sounds, Soft, No tenderness, No hepatospenomegaly Musculoskeletal: Normal sensory function, Normal motor function Neuro: Normal gait, Normal speech Skin: Dry, Intact Psych/Mental Status: Mental status NL, Mood NL Medications Current Medications Medications Dose Ordered Sig/Callie Route Start Time Stop Time Status Last Admin Dose Admin Sodium Chloride 10 ml Q8HR IV 09/19/24 14:00 09/20/24 05:13 10 ML Acetaminophen/ Hydrocodone Bitart 1 tab Q4HP PRN PO 09/19/24 12:45 09/19/24 21:23 1 TAB Ondansetron HCl 4 mg Q4HP PRN IV 09/19/24 12:45 Docusate Sodium 100 mg BIDPRN PRN PO 09/19/24 12:45 Acetaminophen 650 mg Q6HP PRN PO 09/19/24 12:45 Methylprednisolone Sodium Succinate 40 mg BID IV 09/19/24 22:00 09/20/24 09:30 40 MG Albuterol 2.5 mg Q4HPRN PRN NEB 09/19/24 12:45 Ipratropium [place] 0.5 mg Q4HPRN PRN NEB 09/19/24 12:45 Azithromycin 250 ml @ 125 mls/hr DAILY IV 09/20/24 10:00 09/20/24 10:59 125 MLS/HR Ceftriaxone Sodium 50 ml @ 100 mls/hr DAILY@09 IV 09/20/24 09:00 09/20/24 09:31 100 MLS/HR Guaifenesin/ Codeine Phosphate 5 ml Q6HP PRN PO 09/19/24 18:15 09/20/24 00:53 5 ML Laboratory Results Laboratory Tests 09/20/24 04:33 Chemistry Test 09/20/24 04:33 Albumin 3.8 g/dL (3.2-4.8) Calcium Level 10.1 mg/dL (8.7-10.4) Total Protein 6.4 g/dL (5.7-8.2) LFT Test 09/20/24 04:33 Alanine Aminotransferase (ALT) 9 U/L (7-40) Alkaline Phosphatase 54 U/L (46-116) Aspartate Amino Transferase (AST) 17 U/L (13-40) Total Bilirubin 1.5 mg/dL (0.2-1.0) H Urinalysis Test 09/19/24 20:00 Urine Color Yellow (Yellow) Urine Clarity Clear (Clear) Urine pH 5.0 (5.0-9.0) Urine Specific [place] 1.028 (1.001-1.035) Urine Protein Trace (Negative) H Urine Ketones Negative (Negative) Urine Blood Negative /uL (Negative) Urine Nitrite Negative (Negative) Urine Bilirubin Negative (Negative) Urine Urobilinogen Normal mg/dL (Negative) Urine Leukocyte Esterase Negative /uL (Negative) Urine RBC 1 /hpf (0 - 3) Urine Microscopic WBC 2 /HPF (0-3) Urine Squamous Epithelial Cells Few /hpf (<5) Urine Bacteria None seen /hpf (None Seen) Urine Mucus Few (None Seen) Urine Glucose Normal mg/dL (Normal) Labs and/or images reviewed: Labs reviewed by me, Image(s) reviewed by me Assessment/Plan Assessment/Plan Impression: -acute hypoxic respiratory failure -hemoptysis -nicotine dependence Plan: -O2 supplementation to keep saturation greater than 92% -CT angiogram of the chest -room air ABG -continue empiric antibiotics -bronchodilators q.6 hours, add Pulmicort b.i.d. -repeat labs in a.m. Total time spent with patient discussing and formulating plan of care: 35 minutes. This medical document was created using an electronic medical record system with [employer] dictation system. Although this document has been carefully reviewed, there may still be some phonetic and typographical errors. These areas are purely typographical due to imperfections of the software programs, and do not reflect any compromise in the patient's medical care. Plan discussed with: Patient, Other (RN) My Orders Orders - DEBRA LEVIN NP Procedure Category Date Status Time Drug Screen LAB 09/20/24 Logged 13:[address] 09/20/24 Verified Contrast 14:12 Abg W/ Co-Ox RT 09/20/24 Verified 14:12 Ipratropium Medneb PHA 09/20/24 Verified (Atrovent Medneb) 18:00 Albuterol Medneb PHA 09/20/24 Verified (Ventolin Medneb) 18:00 Budesonide PHA 09/20/24 Verified (Inhalation) 22:00 Date of Service: Sep 20, 2024 Billing Provider: DEBRA LEVIN NP Common Visit Codes: [id number] INP/OBS CARE(HIGH) DEBRA LEVIN NP Sep 20, 2024 14:17
[2024-09-20 15:11] LABS: Base Excess -5.4 mmol/L (-2.0-3.0)
[2024-09-20] MEDS: ALBUTEROL SULF 2.5 MG/0.5ML(0.5%) NEB SOLN NEB SCH (19:05)
[2024-09-20] MEDS: IPRATROPIUM BROM 0.5 MG/2.5ML INH SOL NEB SCH (19:06)
[2024-09-20] MEDS: BUDESONIDE (INHALATION) 0.5 MG/2 ML NEB NEB SCH (19:11)
[2024-09-21] VITALS (17 sets, daily range): BP systolic 101–109; BP diastolic 70–80; PULSE 101–126; RESP 16–24; TEMP 97.2–98.2; O2SAT 91–100
--- NOTE | 2024-09-21 04:31 | DVH ---
CTA Chest with intravenous contrast INDICATION: Hemoptysis COMPARISON: None TECHNIQUE: Multidetector spiral CTA of the chest was performed of the chest with intravenous contrast . PULMONARY ANGIOGRAPHY PROTOCOL was utilized using a bolus-tracking technique centered on the main p ulmonary artery. Axial, coronal and sagittal multiplanar and MIP reformats were performed. Radiation Dose : 1. Chest: CTDI volume is 26.64 mGy. Dose-length product is 606.79 mGy*cm The dose indicators for CT are the volume Computed Tomography (CT) Dose Index (CTDIvol) and the Dose Length Product (DLP), and are measured in units of mGy and mGy-cm, respectively. These indicators are not patient dose, but values generated from the CT scanner acquisition factors. The report includes radiation exposure data for exposures received during this examination. Findings: Pulmonary artery: No pulmonary embolism. The main pulmonary artery and ascending thoracic aorta are dilated, measuring 3.6 cm and 4.6 cm, resp ectively. Atherosclerotic vascular calcifications. Lower neck: Normal thyroid. Lungs: Moderate patchy posterior bibasilar pulmonary infiltrate. No evidence of pleural effusion or p neumothorax. Heart/Vascular Structures: Cardiomegaly. No pericardial effusion. Lymph Nodes: No adenopathy Musculoskeletal: No acute osseous abnormality. Soft tissues: Normal. Upper abdomen: Cholelithiasis. Limited portions of the upper abdomen are otherwise unremarkable. IMPRESSION: 1. No pulmonary embolism. 2. Patchy posterior bibasilar pulmonary infiltrate consistent with an infectious process such as pneu monia. 3. Cardiomegaly. 4. Cholelithiasis.
[2024-09-21 07:21] LABS: Cannabinoid Screen, Urine Neg (NEGATIVE); Opiate Scree,Urine Pos (NEGATIVE)
[2024-09-21 07:27] LABS: Amphetamine Screen, Urine Pos (NEGATIVE); Barbiturate Scree,Urine Neg (NEGATIVE); Benzodiazephine Screen, Urine Neg (NEGATIVE); Cocaine Screen, Urine Neg (NEGATIVE); Phencyclidine Screen, Urine Neg (NEGATIVE)
[2024-09-21] MEDS ORDERED: ALPRAZolam 0.25 MG TAB PO PRN (14:45)
--- NOTE | 2024-09-21 14:55 | DVHPN2 ---
Subjective Continues to report having shortness of breath. Reviewed: Care Plan, H&P, Labs, Medications Changes from previous H/P or p: No Changes General: Per HPI Eyes: No Pain, No Vision change, No Conjunctivae inflammation, No Eyelid inflammation, No Other, No Redness ENT: No Ear pain, No Ear discharge, No Nose pain, No Nose discharge, No Nose congestion, No Mouth pain, No Mouth swelling, No Throat pain, No Throat swelling, No Other Cardiovascular: No Chest Pain, No Palpitations, No Orthopnea, No Paroxysmal Noc. Dyspnea, No Edema, No Lt Headedness, No Other Respiratory: Cough; No Dry; Shortness of breath; No SOB with excertion, No Wheezing; Hemoptysis; No Pleuritic Pain, No Sputum, No Other Gastrointestinal: No Nausea, No Vomiting, No Abdominal Pain, No Diarrhea, No Constipation, No Melena, No Hematochezia, No Other Genitourinary: No Dysuria, No Frequency, No Incontinence, No Hematuria, No Retention, No Other Musculoskeletal: No other, No neck pain, No shoulder pain, No arm pain, No back pain, No hand pain, No leg pain, No foot pain Skin: No Rash, No Lesions, No Jaundice, No Bruising, No Other Objective Vitals Vital Signs Date Time Temp Pulse Resp B/P (MAP) Pulse Ox O2 Delivery O2 Flow Rate FiO2 09/21/24 12:50 98.2 123 20 109/80 (90) 94 98.2 09/21/24 08:00 Room Air* 0 21 Intake/Output Intake and Output 09/21/24 07:00 Intake Total 2390 ml Output Total 300 ml Balance 2090 ml Intake Oral 2140 ml IV Total 250 ml Output Urine Total 300 ml # Voids 3 General Appearance: Alert, Oriented X3, Cooperative, mild distress HEENT: Atraumatic, PERRLA Lungs: Other (Decreased breath sounds bilaterally) Cardiovascular: Normal S1, Normal S2 Abdomen: Normal bowel sounds, Soft, No tenderness, No hepatospenomegaly Musculoskeletal: Normal sensory function, Normal motor function Neuro: Normal gait, Normal speech Skin: Dry, Intact Psych/Mental Status: Mental status NL, Mood NL Medications Current Medications Medications Dose Ordered Sig/Callie Route Start Time Stop Time Status Last Admin Dose Admin Sodium Chloride 10 ml Q8HR IV 09/19/24 14:00 09/21/24 05:04 10 ML Acetaminophen/ Hydrocodone Bitart 1 tab Q4HP PRN PO 09/19/24 12:45 09/19/24 21:23 1 TAB Ondansetron HCl 4 mg Q4HP PRN IV 09/19/24 12:45 Docusate Sodium 100 mg BIDPRN PRN PO 09/19/24 12:45 Acetaminophen 650 mg Q6HP PRN PO 09/19/24 12:45 Azithromycin 250 ml @ 125 mls/hr DAILY IV 09/20/24 10:00 09/21/24 10:26 125 MLS/HR Ceftriaxone Sodium 50 ml @ 100 mls/hr DAILY@09 IV 09/20/24 09:00 09/21/24 09:26 100 MLS/HR Guaifenesin/ Codeine Phosphate 5 ml Q6HP PRN PO 09/19/24 18:15 09/21/24 09:53 5 ML Ipratropium [place] 0.5 mg Q6HWA NEB 09/20/24 18:00 09/21/24 12:08 0.5 MG Budesonide 0.5 mg BID NEB 09/20/24 22:00 09/21/24 06:30 0.5 MG Methylprednisolone Sodium Succinate 40 mg DAILY IV 09/22/24 10:00 UNV Levalbuterol HCl 0.625 mg Q6HWA NEB 09/21/24 18:00 UNV Alprazolam 0.25 mg Q8HP PRN PO 09/21/24 14:45 UNV Laboratory Results Laboratory Tests 09/20/24 04:33 Urinalysis Test 09/19/24 20:00 Urine Color Yellow (Yellow) Urine Clarity Clear (Clear) Urine pH 5.0 (5.0-9.0) Urine Specific [place] 1.028 (1.001-1.035) Urine Protein Trace (Negative) H Urine Ketones Negative (Negative) Urine Blood Negative /uL (Negative) Urine Nitrite Negative (Negative) Urine Bilirubin Negative (Negative) Urine Urobilinogen Normal mg/dL (Negative) Urine Leukocyte Esterase Negative /uL (Negative) Urine RBC 1 /hpf (0 - 3) Urine Microscopic WBC 2 /HPF (0-3) Urine Squamous Epithelial Cells Few /hpf (<5) Urine Bacteria None seen /hpf (None Seen) Urine Mucus Few (None Seen) Urine Glucose Normal mg/dL (Normal) Blood Gas Results Test 09/20/24 15:03 Arterial Blood pH 7.394 (7.350-7.450) FiO2 % 21.0 Labs and/or images reviewed: Labs reviewed by me, Image(s) reviewed by me Assessment/Plan Assessment/Plan Impression: -acute hypoxic respiratory failure -hemoptysis -nicotine dependence -polysubstance abuse: Amphetamines, opiates Plan: Events: No events overnight. -O2 supplementation to keep saturation greater than 92% -CTA of chest negative for PE. Noted pneumonia -continue empiric antibiotics -bronchodilators q.6 hours, add Pulmicort b.i.d. -echocardiogram -repeat labs in a.m. Total time spent with patient discussing and formulating plan of care: 35 minutes. This medical document was created using an electronic medical record system with [employer] dictation system. Although this document has been carefully reviewed, there may still be some phonetic and typographical errors. These areas are purely typographical due to imperfections of the software programs, and do not reflect any compromise in the patient's medical care. Plan discussed with: Patient, Other (RN) My Orders Orders - DEBRA LEVIN NP Procedure Category Date Status Time Methylprednisolone PHA 09/22/24 Logged Sod Succ (Solu Medrol 10:00 Levalbuterol Hcl PHA 09/21/24 Logged (Xopenex Medneb) 18:00 Echo 2d Mode Cardiac US 09/21/24 Logged DOP 14:43 Alprazolam Tablet PHA 09/21/24 Logged (Xanax Tablet) 14:45 Basic Metabolic Panel LAB 09/22/24 Verified 04:00 Complete Blood Count LAB 09/22/24 Verified 04:00 Metoprolol Xl PHA 09/22/24 Verified Succinate (Toprol Xl) 10:00 Date of Service: Sep 21, 2024 Billing Provider: DEBRA LEVIN NP Common Visit Codes: [id number] INP/OBS CARE(HIGH) DEBRA LEVIN NP Sep 21, 2024 14:55
[2024-09-21] MEDS: LEVALBUTEROL HCL 1.25 MG/3 ML NEB NEB SCH (19:15)
--- NOTE | 2024-09-21 21:00 | DVHSR ---
APPROVED REPORT EXAM: Two-dimensional and M-mode echocardiogram with Doppler and color Doppler. Blood Pressure: 105/76 mmHg INDICATION Acute diastolic heart failure ? RISK FACTORS Height: 6' 1", Weight: 202 DIMENSIONS LVDd7.1 (3.8-5.7cm)LA (2D)5.0 (1.9-4.0cm)Aortic Root5.3 (2.0-3.7cm) LVDs6.6 (2.5-4.0cm)LA (MM) (1.9-4.0cm)Aortic Cusp Exc2.5 (1.5-2.0cm) EF (%) 15.0 (55-70%)Rt. Atrium5.0 (1.9-4.0cm)Asc. Aorta cm IVSd1.3 (0.7-1.1cm)RV (D) (1.8-2.4cm) PWd1.2 (0.7-1.1cm) Mitral Valve MitralMitral Stenosis E/A ratio0.02D MVAcm2 Aortic Valve Aortic ValveAortic Stenosis V10.60m/Alis Mean GR.5mmHg V21.30m/Alis Peak GR.8mmHg LVOT Diameter2.9 (1.8-2.4cm)Doppler AVA3.05cm2 AI P 1/2 [id number] Pulmonic Valve V20.50m/s Tricuspid Valve TR Velocity2.70m/s [id number] Conclusion DILATED ALL CARDIAC CHAMBERS SEVERE LV AND RV HYPOKINESIS LV EF IS ONLY 15% GROSSLY NORMAL VALVES MODERATE DEGREE PULMONARY HYPERTENSION RVSP IS 45 MM OF HG AND IS HIGH NO EFFUSION IT IS END STAGE DILATED CARDIOMYOPATHY
[2024-09-22] VITALS (14 sets, daily range): BP systolic 101–111; BP diastolic 66–80; PULSE 86–128; RESP 12–25; TEMP 97.1–98.5; O2SAT 94–100
[2024-09-22 05:34] LABS: Hematocrit 33.9 % (41.0-53.0); Hemoglobin 11.4 g/dL (13.5-17.5); Mean Corpuscular Hemoglobin 31.3 pg (28.0-32.0); Mean Corpuscular Volume 92.7 fL (80.0-100.0); Nucleated Red Blood Cells % 0.0 %
[2024-09-22 05:41] LABS: Anion Gap 9 (5-15); Carbon Dioxide 25 mmol/L (20-31); Potassium 4.9 mmol/L (3.5-5.1); Sodium 142 mmol/L (136-145)
[2024-09-22 05:42] LABS: Calcium 9.7 mg/dL (8.7-10.4); Chloride 108 mmol/L (98-107)
[2024-09-22 05:47] LABS: BUN/Creatinine Ratio 25.7 (10.0-20.0)
[2024-09-22 05:49] LABS: Blood Urea Nitrogen 36 mg/dL (9-23); Glucose 111 mg/dL (74-106)
[2024-09-22] MEDS: methylPREDNISolone SOD SUCC 40 MG/ML VL IV SCH (09:32)
[2024-09-22] MEDS: SACUBITRIL-VALSARTAN 24mg/26mg TAB PO SCH (09:33)
[2024-09-22] MEDS: SPIRONOLACTONE 25 MG TAB PO SCH (09:33)
[2024-09-22] MEDS: METOPROLOL SUCCINATE XL 50 MG TAB PO SCH (09:35)
--- NOTE | 2024-09-22 13:44 | DVHINCON2 ---
Date Seen: Sep 22, 2024 Referring Physician CHRISTINE Negron Reason for Consultation New diagnosis of systolic heart failure History of Present Illness This is a 69-year-old male patient who presents to the emergency room with chief complaint of worsening shortness of breath for one week. He complains of dyspnea on exertion. The patient came to the emergency room for further evaluation. Initial twelve lead electrocardiogram reveals sinus tachycardia with nonspecific diffuse ST segment changes. Initial troponin level of 54ng/L with flat trend thereafter. The patient denies any chest pain at time of assessment. Significant past medical history includes hypertension, COPD, tobacco use, and methamphetamine use. The patient admits to last methamphetamine use approximately one week ago. Past Medical History Past medical history reviewed. No other significant than mentioned above. Past Surgical History Tonsillectomy Family History: Diabetes mellitus G8 MOTHER FH: lung cancer G8 FATHER, , Cause: Lung cancer Pancreatitis G8 SISTER Family History Family history reviewed. Social History Patient has a 40 pack-year history, quit smoking approximately one week ago Patient admits to marijuana use and previous methamphetamine use. He states last time he used methamphetamine was approximately one week ago Denies alcohol use Allergies: Coded Allergies: Penicillins (Verified Allergy, Unknown, 04/10/21) Home Meds Active Scripts Tamsulosin Hcl (Flomax) 0.4 Mg Cap, 0.4 MG PO QPM for 30 Days, #30 CAP Prov:KAMALJIT ALMONTE MD 04/14/21 Oxycodone W/ Acetaminophen (Percocet 5/325MG) 1 Tab Tb, 1 TAB PO BID for 7 Days, #14 TAB 0 Refills Prov:KAMALJIT ALMONTE MD 04/14/21 Ciprofloxacin Hcl (Ciprofloxacin Hcl) 500 Mg Tab, 1 TAB PO BID for 7 Days, #14 TAB Prov:KAMALJIT ALMONTE MD 04/14/21 Home Meds Home medications reviewed. Current Medications Current Medications Medications (Trade) Dose Ordered Sig/Callie Route PRN Reason Start Time Stop Time Status Last Admin Methylprednisolone Sodium Succinate (Solu Medrol) 40 mg DAILY IV 09/22/24 10:00 09/22/24 09:32 Levalbuterol HCl (Xopenex Medneb) 0.625 mg Q6HWA NEB 09/21/24 18:00 09/22/24 11:34 Alprazolam (Xanax Tablet) 0.25 mg Q8HP PRN PO ANXIETY 09/21/24 14:45 Metoprolol Succinate (Toprol Xl) 25 mg DAILY PO 09/22/24 10:00 09/22/24 09:35 Sacubitril/ Valsartan (Entresto 24-26 Mg tab) 0.5 tab BID PO 09/22/24 10:00 09/22/24 09:33 Spironolactone (Aldactone) 25 mg DAILY PO 09/22/24 10:00 09/22/24 09:33 Review of Systems Constitutional: No symptom reported Ears, Nose, & Throat: No symptom reported Eyes: No symptom reported Neurological: No symptoms reported Pulmonary/Respiratory: Shortness of breath Cardiovascular: No symptom reported Gastrointestinal: No symptom reported Genitourinary: No symptom reported Musculoskeletal: No symptom reported Skin: No symptom reported Psychiatric: No symptom reported Endocrine: No symptom reported Hematologic/Lymphatic: No symptom reported Vital Signs Vital Signs Date Time Temp Pulse Resp B/P (MAP) Pulse Ox O2 Delivery O2 Flow Rate FiO2 09/22/24 11:54 115 16 103/69 97 0.0 21 09/22/24 11:34 Room Air* 09/22/24 08:36 97.3 97.3 Physical Exam General Appearance: Cooperative. Well-developed. Well-nourished. No acute distress. Pulmonary/Respiratory: Diminished bilateral lower lobes Cardiovascular/Chest: Regular rate and rhythm. Peripheral Pulses: 2+ Radial (R). 2+ Radial (L). 2+ Pedal (R). 2+ Pedal (L) Abdominal Exam: Normal bowel sounds. Ankle Exam: Negative ankle edema Lower extremities: Negative lower extremity edema Neuro/Mental Status: A/OX4, coherent. Thoughts/Psych: Normal thought pattern. Appropriate mood and affect. Good judgment and insight. Appearance: No acute distress. Skin Exam: Normal inspection. Normal color. Warm and dry. Labs/Diagnostic Data Labs Test 09/22/24 04:44 09/21/24 06:33 09/20/24 15:03 09/20/24 04:33 Range/Units White Blood Count 12.8 #H 4.4-10.8 10^3/uL Red Blood Count 3.66 L 4.5-5.90 10^6/uL Hemoglobin 11.4 L 13.5-17.5 g/dL Hematocrit 33.9 L 41.0-53.0 % Mean Corpuscular Volume 92.7 80.0-100.0 fL Mean Corpuscular Hemoglobin 31.3 28.0-32.0 pg Mean Corpuscular Hemoglobin Concent 33.7 32.0-36.0 g/dL Red Cell Distribution Width 16.5 H 11.8-14.3 % Platelet Count 201 140-450 10^3/uL Mean Platelet Volume 8.2 6.9-10.8 fL Neutrophils (%) (Auto) 84.5 H 37.0-80.0 % Lymphocytes (%) (Auto) 8.6 L 10.0-50.0 % Monocytes (%) (Auto) 6.8 0.0-12.0 % Eosinophils (%) (Auto) 0.0 0.0-7.0 % Basophils (%) (Auto) 0.1 0.0-2.0 % Neutrophils # (Auto) 10.8 H 1.6-8.6 10 ^3/uL Lymphocytes # (Auto) 1.1 0.4-5.4 10 ^3/uL Monocytes # (Auto) 0.9 0-1.3 10 ^3/uL Eosinophils # (Auto) 0 0-0.8 10 ^3/uL Basophils # (Auto) 0 0-0.2 10 ^3/uL Nucleated Red Blood Cells 0.0 % Sodium Level 142 136-145 mmol/L Potassium Level 4.9 3.5-5.1 mmol/L Chloride Level 108 H 98-107 mmol/L Carbon Dioxide Level 25 20-31 mmol/L Anion Gap 9 5-15 Blood Urea Nitrogen 36 H 9-23 mg/dL Creatinine 1.40 H 0.700-1.30 mg/dL Glomerular Filtration Rate Calc 54 >90 mL/min BUN/Creatinine Ratio 25.7 H 10.0-20.0 Serum Glucose 111 H 74-106 mg/dL Calcium Level 9.7 8.7-10.4 mg/dL Urine Opiates Screen Pos NEGATIVE Urine Fentanyl Screen Neg NEGATIVE Urine Barbiturates Screen Neg NEGATIVE Urine Phencyclidine Screen Neg NEGATIVE Urine Amphetamines Screen Pos NEGATIVE Urine Benzodiazepines Screen Neg NEGATIVE Urine Cocaine Screen Neg NEGATIVE Urine Cannabinoids Screen Neg NEGATIVE Blood Gas Specimen Type Arterial Blood Gas Sample Site Right radial Blood Gas Patient Temperature 37.0 Arterial Blood Date Drawn [id number] Arterial Blood pH 7.394 7.350-7.450 Arterial Blood Partial Pressure CO2 30.7 L 35.0-48.0 mmHg Arterial Blood Partial Pressure O2 73.9 L 83.0-108.0 mmHg Arterial Blood HCO3 18.3 L 21.0-28.0 mmol/L Arterial Blood Oxygen Saturation 92.9 L 94.0-98.0 % Arterial Blood Base Excess -5.4 L -2.0-3.0 mmol/L Arterial Blood Oxyhemoglobin 92.1 L 94.0-98.0 % Arterial Blood Carboxyhemoglobin 0.5 0.5-1.5 % Arterial Blood Methemoglobin 0.4 0.0-1.5 % Germán Test Yes Blood Gas Total Hemoglobin 13.10 L 13.5-17.5 g/dL Blood Gas Modality Room air FiO2 % 21.0 Total Bilirubin 1.5 H 0.2-1.0 mg/dL Aspartate Amino Transferase (AST) 17 13-40 U/L Alanine Aminotransferase (ALT) 9 7-40 U/L Alkaline Phosphatase 54 46-116 U/L Total Protein 6.4 5.7-8.2 g/dL Albumin 3.8 3.2-4.8 g/dL Test 09/19/24 20:00 09/19/24 13:27 09/19/24 13:04 Range/Units Urine Color Yellow Yellow Urine Clarity Clear Clear Urine pH 5.0 5.0-9.0 Urine Specific [place] 1.028 1.001-1.035 Urine Protein Trace H Negative Urine Ketones Negative Negative Urine Blood Negative Negative /uL Urine Nitrite Negative Negative Urine Bilirubin Negative Negative Urine Urobilinogen Normal Negative mg/dL Urine Leukocyte Esterase Negative Negative /uL Urine RBC 1 0 - 3 /hpf Urine Microscopic WBC 2 0-3 /HPF Urine Squamous Epithelial Cells Few <5 /hpf Urine Bacteria None seen None Seen /hpf Urine Mucus Few None Seen Urine Glucose Normal Normal mg/dL Lactic Acid Level 2.0 0.4-2.0 mmol/L Troponin I High Sensitivity 54 </=54 ng/L Assessment Rule out coronary artery disease Acute on chronic HFrEF, NYHA class III, newly diagnosed ?Ischemic cardiomyopathy, ?Drug-induced cardiomyopathy Nonsustained ventricular tachycardia Hypertension Pulmonary hypertension, moderate degree COPD Tobacco use Methamphetamine use Plan/Recommendation We will continue with the following plan/recommendations (Dr. Rico): Case discussed with . The patient underwent a transthoracic echocardiogram which revealed an EF of 15% with severe LV and RV hypokinesis, RVSP 45 mmHg. We will recommend to initiate the patient on guideline directed medical therapy for CHF as tolerated by BP and renal function. Given newly diagnosed HFrEF, symptoms of dyspnea, and nonsustained ventricular tachycardia on monitor and storage bin tender, the patient was offered a coronary angiogram with left heart catheterization. The procedure was discussed with the patient in full detail including risks and benefits. Risks include but are not limited to bleeding, contrast-induced nephropathy, coronary dissection, stroke, and even . The patient understands and is agreeable to undergo the procedure. We will schedule the patient at soonest availability on 09/23/2024. The patient was given extensive education on the need to abstain from polysubstance use. Patient verbalized understanding and states he we will abstain from all illicit substances. In the meantime, continue with close cardiac surveillance and notify cardiology team immediately for any ECG changes. Thank you for allowing us to care for this patient. Please call with any questions or concerns. Critical care time spent: 44 minutes This medical document was created using an electronic medical record system with voice recognition software and computerized dictation system. Although this document has been carefully reviewed, there might still be some phonetic and typographical errors. Occasional wrong-word or ``sound-alike substitutions may have occurred due to the inherent limitations of voice recognition software. These areas are purely typographical due to imperfections of the software programs and do not reflect any compromise in the patient's medical care. Please read the chart carefully and recognize, using context, where these substitutions have occurred. Plan discussed with: Patient NYHA Physical activity limitations: Class3(Marked) ordinary Date of Service: Sep 22, 2024 Billing Provider: NAYELI MARS Cardiology Common Codes: [id number] INP/OBS CARE (High) Cardiology Consultation Codes: [id number] CONSULT <45MIN NAYELI MARS Sep 22, 2024 13:44
[2024-09-22] MEDS: SODIUM CHLORIDE 0.9% 1,000 ML IV SCH (14:57)
--- NOTE | 2024-09-22 15:22 | DVHPN2 ---
Subjective Continues to report having shortness of breath. Reviewed: Care Plan, H&P, Labs, Medications Changes from previous H/P or p: No Changes General: Per HPI Eyes: No Pain, No Vision change, No Conjunctivae inflammation, No Eyelid inflammation, No Other, No Redness ENT: No Ear pain, No Ear discharge, No Nose pain, No Nose discharge, No Nose congestion, No Mouth pain, No Mouth swelling, No Throat pain, No Throat swelling, No Other Cardiovascular: No Chest Pain, No Palpitations, No Orthopnea, No Paroxysmal Noc. Dyspnea, No Edema, No Lt Headedness, No Other Respiratory: Cough; No Dry; Shortness of breath; No SOB with excertion, No Wheezing; Hemoptysis; No Pleuritic Pain, No Sputum, No Other Gastrointestinal: No Nausea, No Vomiting, No Abdominal Pain, No Diarrhea, No Constipation, No Melena, No Hematochezia, No Other Genitourinary: No Dysuria, No Frequency, No Incontinence, No Hematuria, No Retention, No Other Musculoskeletal: No other, No neck pain, No shoulder pain, No arm pain, No back pain, No hand pain, No leg pain, No foot pain Skin: No Rash, No Lesions, No Jaundice, No Bruising, No Other Objective Vitals Vital Signs Date Time Temp Pulse Resp B/P (MAP) Pulse Ox O2 Delivery O2 Flow Rate FiO2 09/22/24 12:45 97.1 89 22 105/77 (86) 95 97.1 09/22/24 11:54 0.0 21 09/22/24 11:34 Room Air* Intake/Output Intake and Output 09/22/24 07:00 Intake Total 1550 ml Output Total 1325 ml Balance 225 ml Intake Oral 1250 ml IV Total 300 ml Output Urine Total 1325 ml General Appearance: Alert, Oriented X3, Cooperative, mild distress HEENT: Atraumatic, PERRLA Lungs: Other (Decreased breath sounds bilaterally) Cardiovascular: Normal S1, Normal S2 Abdomen: Normal bowel sounds, Soft, No tenderness, No hepatospenomegaly Musculoskeletal: Normal sensory function, Normal motor function Neuro: Normal gait, Normal speech, Cranial nerves 3-12 NL Skin: Dry, Intact Psych/Mental Status: Mental status NL, Mood NL Medications Current Medications Medications Dose Ordered Sig/Callie Route Start Time Stop Time Status Last Admin Dose Admin Sodium Chloride 10 ml Q8HR IV 09/19/24 14:00 09/22/24 12:59 10 ML Acetaminophen/ Hydrocodone Bitart 1 tab Q4HP PRN PO 09/19/24 12:45 09/19/24 21:23 1 TAB Ondansetron HCl 4 mg Q4HP PRN IV 09/19/24 12:45 Docusate Sodium 100 mg BIDPRN PRN PO 09/19/24 12:45 Acetaminophen 650 mg Q6HP PRN PO 09/19/24 12:45 Azithromycin 250 ml @ 125 mls/hr DAILY IV 09/20/24 10:00 09/22/24 10:30 125 MLS/HR Ceftriaxone Sodium 50 ml @ 100 mls/hr DAILY@09 IV 09/20/24 09:00 09/22/24 09:44 100 MLS/HR Guaifenesin/ Codeine Phosphate 5 ml Q6HP PRN PO 09/19/24 18:15 09/22/24 09:44 5 ML Ipratropium [place] 0.5 mg Q6HWA [facility] 09/20/24 18:00 09/22/24 11:33 0.5 MG Budesonide 0.5 mg BID NEB 09/20/24 22:00 09/22/24 06:33 0.5 MG Methylprednisolone Sodium Succinate 40 mg DAILY IV 09/22/24 10:00 09/22/24 09:32 40 MG Levalbuterol HCl 0.625 mg Q6HWA [facility] 09/21/24 18:00 09/22/24 11:34 0.625 MG Alprazolam 0.25 mg Q8HP PRN PO 09/21/24 14:45 Metoprolol Succinate 25 mg DAILY PO 09/22/24 10:00 09/22/24 09:35 25 MG Sacubitril/ Valsartan 0.5 tab BID PO 09/22/24 10:00 09/22/24 09:33 0.5 TAB Spironolactone 25 mg DAILY PO 09/22/24 10:00 09/22/24 09:33 25 MG Empaglifozin 10 mg DAILY PO 09/23/24 10:00 Sodium Chloride 1,000 ml @ 50 mls/hr Q20H IV 09/22/24 14:00 09/22/24 14:57 50 MLS/HR Laboratory Results Laboratory Tests 09/22/24 04:44 Chemistry Test 09/22/24 04:44 Calcium Level 9.7 mg/dL (8.7-10.4) Urinalysis Test 09/19/24 20:00 Urine Color Yellow (Yellow) Urine Clarity Clear (Clear) Urine pH 5.0 (5.0-9.0) Urine Specific [place] 1.028 (1.001-1.035) Urine Protein Trace (Negative) H Urine Ketones Negative (Negative) Urine Blood Negative /uL (Negative) Urine Nitrite Negative (Negative) Urine Bilirubin Negative (Negative) Urine Urobilinogen Normal mg/dL (Negative) Urine Leukocyte Esterase Negative /uL (Negative) Urine RBC 1 /hpf (0 - 3) Urine Microscopic WBC 2 /HPF (0-3) Urine Squamous Epithelial Cells Few /hpf (<5) Urine Bacteria None seen /hpf (None Seen) Urine Mucus Few (None Seen) Urine Glucose Normal mg/dL (Normal) Labs and/or images reviewed: Labs reviewed by me, Image(s) reviewed by me Assessment/Plan Assessment/Plan Impression: -acute hypoxic respiratory failure -hemoptysis -nicotine dependence -polysubstance abuse: Amphetamines, opiates Plan: Events: Echocardiogram reveals severe four chamber enlargement with ejection fraction of 15%. Cardiology consultation was obtained. Plans for left heart catheterization tomorrow. Continue implementing guideline directed medical therapy with Entresto and spironolactone. Patient tolerating Toprol-XL -O2 supplementation to keep saturation greater than 92% -continue empiric antibiotics -bronchodilators q.6 hours, add Pulmicort b.i.d. -cardiology consultation -repeat labs in a.m. Total time spent with patient discussing and formulating plan of care: 35 minutes. This medical document was created using an electronic medical record system with [employer] dictation system. Although this document has been carefully reviewed, there may still be some phonetic and typographical errors. These areas are purely typographical due to imperfections of the software programs, and do not reflect any compromise in the patient's medical care. Plan discussed with: Patient, Other (RN) My Orders Orders - DEBRA LEVIN NP Procedure Category Date Status Time Sacubitril-Valsartan PHA 09/22/24 In Process (Entresto 24-26 Mg 10:00 Spironolactone PHA 09/22/24 In Process (Aldactone) 10:00 Basic Metabolic Panel LAB 09/23/24 Verified 04:00 Complete Blood Count LAB 09/23/24 Verified 04:00 * Cardiology Consult CONS 09/22/24 Transmitted 11:54 Date of Service: Sep 22, 2024 Billing Provider: DEBRA LEVIN NP Common Visit Codes: [id number] INP/OBS CARE(HIGH) DEBRA LEVIN NP Sep 22, 2024 15:22
[2024-09-22 18:11] LABS: INR 1.08 (0.9-1.15); Partial Thromboplastin Time 24.5 SEC (24.5-34.5); Prothrombin Time 11.4 sec (9.3-11.8)
[2024-09-23] VITALS (15 sets, daily range): BP systolic 92–106; BP diastolic 51–83; PULSE 89–109; RESP 17–21; TEMP 97.7–98.5; O2SAT 91–100
[2024-09-23 07:07] LABS: Hematocrit 35.8 % (41.0-53.0); Hemoglobin 11.9 g/dL (13.5-17.5); Mean Corpuscular Hemoglobin 30.9 pg (28.0-32.0); Mean Corpuscular Volume 93.3 fL (80.0-100.0); Nucleated Red Blood Cells % 0.0 %
[2024-09-23 07:19] LABS: INR 1.08 (0.9-1.15); Partial Thromboplastin Time 25.2 SEC (24.5-34.5); Prothrombin Time 11.4 sec (9.3-11.8)
[2024-09-23 07:22] LABS: Anion Gap 7 (5-15); Carbon Dioxide 27 mmol/L (20-31); Chloride 107 mmol/L (98-107); Potassium 4.4 mmol/L (3.5-5.1); Sodium 141 mmol/L (136-145)
[2024-09-23 07:24] LABS: Calcium 10.1 mg/dL (8.7-10.4)
[2024-09-23 07:28] LABS: BUN/Creatinine Ratio 21.7 (10.0-20.0)
[2024-09-23 07:31] LABS: Blood Urea Nitrogen 28 mg/dL (9-23); Glucose 109 mg/dL (74-106)
[2024-09-23 08:42] LABS: Triglycerides 74.0 mg/dL (< 150)
[2024-09-23 08:43] LABS: Magnesium 2.2 mg/dL (1.6-2.6)
[2024-09-23 08:44] LABS: Cholesterol 112.0 mg/dL (< 200)
[2024-09-23 08:46] LABS: HDL Cholesterol 36.0 mg/dL (40-59)
[2024-09-23] MEDS: EMPAGLIFLOZIN 10 MG TAB PO SCH (10:00)
[2024-09-23] MEDS: VERAPAMIL 2.5MG/ML INJ 2ML VIAL IV ONE (13:01)
[2024-09-23] MEDS: HEPARIN SODIUM (PORCINE) 5000 UNITS/ML 1ML VIAL ONE (13:01)
[2024-09-23] MEDS: LIDOCAINE 2%HCL (LOCAL ANESTH.) INJ 20ML MDV ONE (13:02)
[2024-09-23] MEDS: fentaNYL CITRATE 100 MCG/2 ML VL ONE (13:02)
[2024-09-23] MEDS: MIDAZOLAM HCL 2MG/2ML 2ml VIAL (1mg/ml) ONE (13:02)
--- NOTE | 2024-09-23 14:19 | DVHOP2 ---
Operative Report - 2 Report Details Date: 09/23/24 Preop Diagnosis: CAD Postop Diagnosis: Dilated nonischemic cardiomyopathy Surgeon: Michelle Rico MD Anesthesiologist: Conscious sedation Anesthesia: Mac Consent: The patient was informed of the risks and benefits of the procedure. These include but are not limited to complications of anesthesia, postoperative infection, incomplete relief of symptoms, recurrence of symptoms, damage to blood vessels, nerves and tendons, deep venous thrombosis, pulmonary embolism and possible need for repeat surgery in the future. Complications: No complications Findings: Dilated nonischemic cardiomyopathy Indications for Surgery: Ventricular tachycardia Name of Procedure Performed Bilateral cine coronary angiography. Left ventriculography. Procedure Details Procedure Details: Prior local anesthesia with 2% lidocaine to the right wrist and full informed consent obtained the patient was prepped and draped in usual fashion followed by placement of a six Welsh sheath into the right radial artery through which six Welsh Sari catheter were used to cannulate both right and left coronary ostia and a six Welsh Monica catheter was used for ventriculography as well. No complications. Hemodynamics: Aortic blood pressure was 100/50. End-diastolic pressure was 35. There was no gradient across the aortic valve on pullback. Coronary anatomy : The RCA is a large dominant vessel it is normal in its proximal mid and distal segments. PDA and posterolateral branches are normal. Left main is large and normal. Left anterior descending is a large vessel it is normal in its proximal mid and distal segments. Diagonals and septals are free of significant disease. The circumflex is large with two marginals free of significant disease. Ventriculography in the RAMACHANDRAN projection shows an EF of approximately 15%. Large dilated left ventricle noted. Impression: Elevated left ventricular end-diastolic pressure at rest with decreased left ventricular ejection fraction. Normal coronary arteries. Recommendations: Continue risk factor modification aggressive medical therapy. Condition Guarded Disposition Still a Patient Date of Service: Sep 23, 2024 Billing Provider: MICHELLE RICO Sr., MD Cardiology Common Codes: [id number] INP/OBS CARE (High) Cardiology Procedure Codes: 95932-[id number] HEART CATH W/INTRA INJ MICHELLE RICO Sr., MD Sep 23, 2024 14:19
--- NOTE | 2024-09-23 15:32 | DVHPN2 ---
Subjective Patient denies any symptoms at this time. Reviewed: Care Plan, H&P, Labs, Medications Changes from previous H/P or p: Changes General: Per HPI Eyes: No Pain, No Vision change, No Conjunctivae inflammation, No Eyelid inflammation, No Other, No Redness ENT: No Ear pain, No Ear discharge, No Nose pain, No Nose discharge, No Nose congestion, No Mouth pain, No Mouth swelling, No Throat pain, No Throat swelling, No Other Cardiovascular: No Chest Pain, No Palpitations, No Orthopnea, No Paroxysmal Noc. Dyspnea, No Edema, No Lt Headedness, No Other Respiratory: Cough; No Dry; Shortness of breath; No SOB with excertion, No Wheezing; Hemoptysis; No Pleuritic Pain, No Sputum, No Other Gastrointestinal: No Nausea, No Vomiting, No Abdominal Pain, No Diarrhea, No Constipation, No Melena, No Hematochezia, No Other Genitourinary: No Dysuria, No Frequency, No Incontinence, No Hematuria, No Retention, No Other Musculoskeletal: No other, No neck pain, No shoulder pain, No arm pain, No back pain, No hand pain, No leg pain, No foot pain Skin: No Rash, No Lesions, No Jaundice, No Bruising, No Other Objective Vitals Vital Signs Date Time Temp Pulse Resp B/P (MAP) Pulse Ox O2 Delivery O2 Flow Rate FiO2 09/23/24 15:21 100 92/64 09/23/24 14:55 17 96 09/23/24 14:10 97.7 97.7 09/23/24 08:10 Nasal Cannula* 2 28 Intake/Output Intake and Output 09/23/24 07:00 Intake Total 1520 ml Output Total 925 ml Balance 595 ml Intake Oral 1220 ml IV Total 300 ml Output Urine Total 925 ml General Appearance: Alert, Oriented X3, Cooperative, mild distress HEENT: Atraumatic, PERRLA Lungs: Other (Decreased breath sounds bilaterally) Cardiovascular: Normal S1, Normal S2 Abdomen: Normal bowel sounds, Soft, No tenderness, No hepatospenomegaly Musculoskeletal: Normal sensory function, Normal motor function Neuro: Normal gait, Normal speech, Cranial nerves 3-12 NL Skin: Dry, Intact Psych/Mental Status: Mental status NL, Mood NL Medications Current Medications Medications Dose Ordered Sig/Callie Route Start Time Stop Time Status Last Admin Dose Admin Sodium Chloride 10 ml Q8HR IV 7/21/25 14:00 09/23/24 05:32 10 ML Acetaminophen/ Hydrocodone Bitart 1 tab Q4HP PRN PO 09/19/24 12:45 09/19/24 21:23 1 TAB Ondansetron HCl 4 mg Q4HP PRN IV 09/19/24 12:45 Docusate Sodium 100 mg BIDPRN PRN PO 09/19/24 12:45 Acetaminophen 650 mg Q6HP PRN PO 09/19/24 12:45 Azithromycin 250 ml @ 125 mls/hr DAILY IV 09/20/24 10:00 09/23/24 08:53 125 MLS/HR Ceftriaxone Sodium 50 ml @ 100 mls/hr DAILY@09 IV 09/20/24 09:00 09/23/24 08:52 100 MLS/HR Guaifenesin/ Codeine Phosphate 5 ml Q6HP PRN PO 09/19/24 18:15 09/22/24 09:44 5 ML Ipratropium [place] 0.5 mg Q6HWA [place] 09/20/24 18:00 09/23/24 06:30 0.5 MG Budesonide 0.5 mg BID NEB 09/20/24 22:00 09/23/24 06:30 0.5 MG Methylprednisolone Sodium Succinate 40 mg DAILY IV 09/22/24 10:00 09/23/24 08:52 40 MG Levalbuterol HCl 0.625 mg Q6HWA [place] 09/21/24 18:00 09/23/24 06:30 0.625 MG Alprazolam 0.25 mg Q8HP PRN PO 09/21/24 14:45 Metoprolol Succinate 25 mg DAILY PO 09/22/24 10:00 09/22/24 09:35 25 MG Sacubitril/ Valsartan 0.5 tab BID PO 09/22/24 10:00 09/22/24 21:56 0.5 TAB Spironolactone 25 mg DAILY PO 09/22/24 10:00 09/22/24 09:33 25 MG Empaglifozin 10 mg DAILY PO 09/23/24 10:00 Sodium Chloride 1,000 ml @ 50 mls/hr Q20H IV 09/22/24 14:00 09/23/24 08:52 50 MLS/HR Laboratory Results Laboratory Tests 09/23/24 06:05 Chemistry Test 09/23/24 06:05 Calcium Level 10.1 mg/dL (8.7-10.4) Magnesium Level 2.2 mg/dL (1.6-2.6) Coagulation Test 09/22/24 17:33 09/23/24 06:05 Prothrombin Time 11.4 sec (9.3-11.8) 11.4 sec (9.3-11.8) Prothrombin Time INR 1.08 (0.9-1.15) 1.08 (0.9-1.15) Activated Partial Thromboplast Time 24.5 SEC (24.5-34.5) 25.2 SEC (24.5-34.5) Lipid panel Test 09/23/24 06:05 Cholesterol Level 112 mg/dL (< 200) HDL Cholesterol 36 mg/dL (40-59) L Triglycerides Level 74 mg/dL (< 150) HgA1c, TSH Test 09/23/24 06:05 Hemoglobin A1c 6.0 % A1C (<5.7) H Thyroid Stimulating Hormone (TSH) 1.10 uIU/mL (0.55-4.78) Urinalysis Test 09/19/24 20:00 Urine Color Yellow (Yellow) Urine Clarity Clear (Clear) Urine pH 5.0 (5.0-9.0) Urine Specific [place] 1.028 (1.001-1.035) Urine Protein Trace (Negative) H Urine Ketones Negative (Negative) Urine Blood Negative /uL (Negative) Urine Nitrite Negative (Negative) Urine Bilirubin Negative (Negative) Urine Urobilinogen Normal mg/dL (Negative) Urine Leukocyte Esterase Negative /uL (Negative) Urine RBC 1 /hpf (0 - 3) Urine Microscopic WBC 2 /HPF (0-3) Urine Squamous Epithelial Cells Few /hpf (<5) Urine Bacteria None seen /hpf (None Seen) Urine Mucus Few (None Seen) Urine Glucose Normal mg/dL (Normal) Labs and/or images reviewed: Labs reviewed by me, Image(s) reviewed by me Assessment/Plan Assessment/Plan Impression: -acute hypoxic respiratory failure -hemoptysis -nicotine dependence -polysubstance abuse: Amphetamines, opiates -acute systolic heart failure Plan: Events: Status post left heart catheterization. CAD not found. -continue guideline directed medical therapy for ejection fraction of 15% -repeat chest x-ray -O2 supplementation to keep saturation greater than 92% -continue empiric antibiotics -bronchodilators q.6 hours, add Pulmicort b.i.d. -cardiology consultation -repeat labs in a.m. Total time spent with patient discussing and formulating plan of care: 35 minutes. This medical document was created using an electronic medical record system with [employer] dictation system. Although this document has been carefully reviewed, there may still be some phonetic and typographical errors. These areas are purely typographical due to imperfections of the software programs, and do not reflect any compromise in the patient's medical care. Plan discussed with: Patient, Other (RN) Date of Service: Sep 23, 2024 Billing Provider: DEBRA LEVIN NP Common Visit Codes: [id number] INP/OBS CARE(HIGH) DEBRA LEVIN NP Sep 23, 2024 15:32
--- NOTE | 2024-09-23 18:44 | DVH ---
CHEST RADIOGRAPH Indication: pna, chf Technique: XY CHEST XRAY 1 VIEW COMPARISON: None FINDINGS: The cardiac silhouette is enlarged. The lungs demonstrate bilateral patchy airspace opacities, most p ronounced in the left lower lobe. The pulmonary vasculature is prominent. There is no pleural effusio n. There is no pneumothorax. IMPRESSION: Cardiomegaly with pulmonary vascular congestion and bilateral patchy airspace opacities.
[2024-09-24] VITALS (16 sets, daily range): BP systolic 91–108; BP diastolic 46–82; PULSE 85–116; RESP 16–22; TEMP 97.8–98.6; O2SAT 91–100
[2024-09-24 08:06] LABS: Anion Gap 10 (5-15); Carbon Dioxide 26 mmol/L (20-31); Chloride 106 mmol/L (98-107); Potassium 4.5 mmol/L (3.5-5.1); Sodium 142 mmol/L (136-145)
[2024-09-24 08:07] LABS: Calcium 9.9 mg/dL (8.7-10.4)
[2024-09-24 08:12] LABS: BUN/Creatinine Ratio 22.0 (10.0-20.0); Blood Urea Nitrogen 29 mg/dL (9-23); Glucose 104 mg/dL (74-106)
[2024-09-24 08:24] LABS: Hematocrit 38.3 % (41.0-53.0); Hemoglobin 12.8 g/dL (13.5-17.5); Mean Corpuscular Hemoglobin 31.5 pg (28.0-32.0); Mean Corpuscular Volume 94.3 fL (80.0-100.0); Nucleated Red Blood Cells % 0.1 %
--- NOTE | 2024-09-24 18:49 | DVHPN2 ---
Subjective I am assuming the care of the patient from today onwards. Patient denies any chest pain shortness of breath. Reviewed: Care Plan, H&P, Labs, Medications Changes from previous H/P or p: No Changes General: Per HPI Eyes: No Pain, No Vision change, No Conjunctivae inflammation, No Eyelid inflammation, No Other, No Redness ENT: No Ear pain, No Ear discharge, No Nose pain, No Nose discharge, No Nose congestion, No Mouth pain, No Mouth swelling, No Throat pain, No Throat swelling, No Other Cardiovascular: No Chest Pain, No Palpitations, No Orthopnea, No Paroxysmal Noc. Dyspnea, No Edema, No Lt Headedness, No Other Respiratory: Cough; No Dry; Shortness of breath; No SOB with excertion, No Wheezing; Hemoptysis; No Pleuritic Pain, No Sputum, No Other Gastrointestinal: No Nausea, No Vomiting, No Abdominal Pain, No Diarrhea, No Constipation, No Melena, No Hematochezia, No Other Genitourinary: No Dysuria, No Frequency, No Incontinence, No Hematuria, No Retention, No Other Musculoskeletal: No other, No neck pain, No shoulder pain, No arm pain, No back pain, No hand pain, No leg pain, No foot pain Skin: No Rash, No Lesions, No Jaundice, No Bruising, No Other Objective Vitals Vital Signs Date Time Temp Pulse Resp B/P (MAP) Pulse Ox O2 Delivery O2 Flow Rate FiO2 09/24/24 17:00 98.0 92 20 91/59 (70) 95 98.0 09/24/24 11:02 Nasal Cannula* 2 28 Intake/Output Intake and Output 09/24/24 07:00 Intake Total 1350 ml Output Total 450 ml Balance 900 ml Intake Oral 1300 ml IV Total 50 ml Output Urine Total 450 ml # Voids 2 Exam HEENT pupils are reactive Neck is supple CV is S1-S2 regular rate and rhythm Respiratory diminished breath sounds bases GI positive bowel sound Extremity no edema [employer] no motor deficit General Appearance: Alert, Oriented X3, Cooperative, mild distress HEENT: Atraumatic, PERRLA Lungs: Other (Decreased breath sounds bilaterally) Cardiovascular: Normal S1, Normal S2 Abdomen: Normal bowel sounds, Soft, No tenderness, No hepatospenomegaly Musculoskeletal: Normal sensory function, Normal motor function Neuro: Normal gait, Normal speech, Cranial nerves 3-12 NL Skin: Dry, Intact Psych/Mental Status: Mental status NL, Mood NL Medications Current Medications Medications Dose Ordered Sig/Callie Route Start Time Stop Time Status Last Admin Dose Admin Sodium Chloride 10 ml Q8HR IV 09/19/24 14:00 09/24/24 14:33 10 ML Acetaminophen/ Hydrocodone Bitart 1 tab Q4HP PRN PO 09/19/24 12:45 09/19/24 21:23 1 TAB Ondansetron HCl 4 mg Q4HP PRN IV 09/19/24 12:45 Docusate Sodium 100 mg BIDPRN PRN PO 09/19/24 12:45 Acetaminophen 650 mg Q6HP PRN PO 09/19/24 12:45 Azithromycin 250 ml @ 125 mls/hr DAILY IV 09/20/24 10:00 09/24/24 09:33 125 MLS/HR Ceftriaxone Sodium 50 ml @ 100 mls/hr DAILY@09 IV 09/20/24 09:00 09/24/24 09:33 100 MLS/HR Guaifenesin/ Codeine Phosphate 5 ml Q6HP PRN PO 09/19/24 18:15 09/22/24 09:44 5 ML Ipratropium [place] 0.5 mg Q6HWA NEB 09/20/24 18:00 09/24/24 11:02 0.5 MG Budesonide 0.5 mg BID NEB 09/20/24 22:00 09/24/24 06:05 0.5 MG Methylprednisolone Sodium Succinate 40 mg DAILY IV 09/22/24 10:00 09/24/24 09:32 40 MG Levalbuterol HCl 0.625 mg Q6HWA NEB 09/21/24 18:00 09/24/24 11:02 0.625 MG Alprazolam 0.25 mg Q8HP PRN PO 09/21/24 14:45 Metoprolol Succinate 25 mg DAILY PO 09/22/24 10:00 09/22/24 09:35 25 MG Sacubitril/ Valsartan 0.5 tab BID PO 09/22/24 10:00 09/24/24 09:33 0.5 TAB Spironolactone 25 mg DAILY PO 09/22/24 10:00 09/24/24 09:32 25 MG Empaglifozin 10 mg DAILY PO 7/25/25 10:00 09/24/24 09:32 10 MG Sodium Chloride 1,000 ml @ 50 mls/hr Q20H IV 09/22/24 14:00 09/24/24 05:28 50 MLS/HR Laboratory Results Laboratory Tests 09/24/24 06:15 Chemistry Test 09/24/24 06:15 Calcium Level 9.9 mg/dL (8.7-10.4) Urinalysis Test 09/19/24 20:00 Urine Color Yellow (Yellow) Urine Clarity Clear (Clear) Urine pH 5.0 (5.0-9.0) Urine Specific [place] 1.028 (1.001-1.035) Urine Protein Trace (Negative) H Urine Ketones Negative (Negative) Urine Blood Negative /uL (Negative) Urine Nitrite Negative (Negative) Urine Bilirubin Negative (Negative) Urine Urobilinogen Normal mg/dL (Negative) Urine Leukocyte Esterase Negative /uL (Negative) Urine RBC 1 /hpf (0 - 3) Urine Microscopic WBC 2 /HPF (0-3) Urine Squamous Epithelial Cells Few /hpf (<5) Urine Bacteria None seen /hpf (None Seen) Urine Mucus Few (None Seen) Urine Glucose Normal mg/dL (Normal) Assessment/Plan Assessment/Plan 69-year-old male with a known history of cardiomyopathy , polysubstance abuse initially admitted to the hospital with shortness of breaths found to have 1. Acute hypoxic respiratory failure secondary to acute CHF exacerbation 2. Acute CHF exacerbation with systolic dysfunction 3. Cardiomyopathy with EF of 15% status post left heart catheterization shows no evidence of coronary artery disease 4. Illicit drug use -continue current meds, arrange LifeVest. Plan discussed with: Patient Date of Service: Sep 24, 2024 Billing Provider: ANNE MARKS MD Common Visit Codes: [id number] INP/OBS CARE(MOD) ANNE MARKS MD Sep 24, 2024 18:49
--- NOTE | 2024-09-24 19:32 | DVHPN2 ---
Subjective Denies chest pain or shortness of breath No cardiac events reported Reviewed: Care Plan, H&P, Labs, Medications Changes from previous H/P or p: No Changes General: Per HPI Eyes: No Pain, No Vision change, No Conjunctivae inflammation, No Eyelid inflammation, No Other, No Redness ENT: No Ear pain, No Ear discharge, No Nose pain, No Nose discharge, No Nose congestion, No Mouth pain, No Mouth swelling, No Throat pain, No Throat swelling, No Other Cardiovascular: No Chest Pain, No Palpitations, No Orthopnea, No Paroxysmal Noc. Dyspnea, No Edema, No Lt Headedness, No Other Respiratory: Cough; No Dry; Shortness of breath; No SOB with excertion, No Wheezing; Hemoptysis; No Pleuritic Pain, No Sputum, No Other Gastrointestinal: No Nausea, No Vomiting, No Abdominal Pain, No Diarrhea, No Constipation, No Melena, No Hematochezia, No Other Genitourinary: No Dysuria, No Frequency, No Incontinence, No Hematuria, No Retention, No Other Musculoskeletal: No other, No neck pain, No shoulder pain, No arm pain, No back pain, No hand pain, No leg pain, No foot pain Skin: No Rash, No Lesions, No Jaundice, No Bruising, No Other Objective Vitals Vital Signs Date Time Temp Pulse Resp B/P (MAP) Pulse Ox O2 Delivery O2 Flow Rate FiO2 09/24/24 19:11 97 Nasal Cannula* 2 28 09/24/24 19:10 102 16 09/24/24 17:00 98.0 91/59 (70) 98.0 Intake/Output Intake and Output 09/24/24 07:00 Intake Total 1350 ml Output Total 450 ml Balance 900 ml Intake Oral 1300 ml IV Total 50 ml Output Urine Total 450 ml # Voids 2 General Appearance: Alert, Oriented X3, Cooperative, mild distress HEENT: Atraumatic, PERRLA Lungs: Other (Decreased breath sounds bilaterally) Cardiovascular: Normal S1, Normal S2 Abdomen: Normal bowel sounds, Soft, No tenderness, No hepatospenomegaly Musculoskeletal: Normal sensory function, Normal motor function Neuro: Normal gait, Normal speech, Cranial nerves 3-12 NL Skin: Dry, Intact Psych/Mental Status: Mental status NL, Mood NL Medications Current Medications Medications Dose Ordered Sig/Callie Route Start Time Stop Time Status Last Admin Dose Admin Sodium Chloride 10 ml Q8HR IV 09/19/24 14:00 09/24/24 14:33 10 ML Acetaminophen/ Hydrocodone Bitart 1 tab Q4HP PRN PO 09/19/24 12:45 09/19/24 21:23 1 TAB Ondansetron HCl 4 mg Q4HP PRN IV 09/19/24 12:45 Docusate Sodium 100 mg BIDPRN PRN PO 09/19/24 12:45 Acetaminophen 650 mg Q6HP PRN PO 09/19/24 12:45 Azithromycin 250 ml @ 125 mls/hr DAILY IV 09/20/24 10:00 09/24/24 09:33 125 MLS/HR Ceftriaxone Sodium 50 ml @ 100 mls/hr DAILY@09 IV 09/20/24 09:00 09/24/24 09:33 100 MLS/HR Guaifenesin/ Codeine Phosphate 5 ml Q6HP PRN PO 09/19/24 18:15 09/22/24 09:44 5 ML Ipratropium [place] 0.5 mg Q6HWA [facility] 09/20/24 18:00 09/24/24 19:09 0.5 MG Budesonide 0.5 mg BID NEB 09/20/24 22:00 09/24/24 19:10 0.5 MG Methylprednisolone Sodium Succinate 40 mg DAILY IV 09/22/24 10:00 09/24/24 09:32 40 MG Levalbuterol HCl 0.625 mg Q6HWA [facility] 09/21/24 18:00 09/24/24 19:10 0.625 MG Alprazolam 0.25 mg Q8HP PRN PO 09/21/24 14:45 Metoprolol Succinate 25 mg DAILY PO 09/22/24 10:00 09/22/24 09:35 25 MG Sacubitril/ Valsartan 0.5 tab BID PO 09/22/24 10:00 09/24/24 09:33 0.5 TAB Spironolactone 25 mg DAILY PO 09/22/24 10:00 09/24/24 09:32 25 MG Empaglifozin 10 mg DAILY PO 09/23/24 10:00 09/24/24 09:32 10 MG Sodium Chloride 1,000 ml @ 50 mls/hr Q20H IV 09/22/24 14:00 09/24/24 05:28 50 MLS/HR Laboratory Results Laboratory Tests 09/24/24 06:15 Chemistry Test 09/24/24 06:15 Calcium Level 9.9 mg/dL (8.7-10.4) Urinalysis Test 09/19/24 20:00 Urine Color Yellow (Yellow) Urine Clarity Clear (Clear) Urine pH 5.0 (5.0-9.0) Urine Specific [place] 1.028 (1.001-1.035) Urine Protein Trace (Negative) H Urine Ketones Negative (Negative) Urine Blood Negative /uL (Negative) Urine Nitrite Negative (Negative) Urine Bilirubin Negative (Negative) Urine Urobilinogen Normal mg/dL (Negative) Urine Leukocyte Esterase Negative /uL (Negative) Urine RBC 1 /hpf (0 - 3) Urine Microscopic WBC 2 /HPF (0-3) Urine Squamous Epithelial Cells Few /hpf (<5) Urine Bacteria None seen /hpf (None Seen) Urine Mucus Few (None Seen) Urine Glucose Normal mg/dL (Normal) Assessment/Plan Assessment/Plan Rule out coronary artery disease Acute on chronic HFrEF, NYHA class III, newly diagnosed ?Ischemic cardiomyopathy, ?Drug-induced cardiomyopathy Nonsustained ventricular tachycardia Hypertension Pulmonary hypertension, moderate degree COPD Tobacco use Methamphetamine use Plan/Recommendation We will continue with the following plan/recommendations (Dr. Rico): Left heart catheterization revealed dilated nonischemic cardiomyopathy with an ejection fraction of approximately 15%. The patient was started on guideline directed medical therapy for heart failure. Given the new diagnosis of HFrEF, the patient agreed to wear a life vest for preliminary prevention of sudden cardiac . He also agreed to follow-up with a auto dealer in the outpatient setting and expressed willingness to cease methamphetamine use as part of his heart failure management plan. Plan discussed with: Patient Date of Service: Sep 24, 2024 Billing Provider: MICHELLE RICO Sr., MD Common Visit Codes: CONSULT ONLY Consultation Codes: [id number] CONSULT <45MIN JHONNY MARAVILLA [employer] AP[employer]ENTICE Sep 24, 2024 19:32
[2024-09-25] VITALS (16 sets, daily range): BP systolic 85–111; BP diastolic 51–72; PULSE 83–103; RESP 16–20; TEMP 97.5–98.2; O2SAT 90–100
--- NOTE | 2024-09-25 17:48 | DVHPN2 ---
Subjective Patient denies any complaints requesting to go home but LifeVest is pending. Social service consult has been placed. Reviewed: Care Plan, H&P, Labs, Medications Changes from previous H/P or p: No Changes General: Per HPI Eyes: No Pain, No Vision change, No Conjunctivae inflammation, No Eyelid inflammation, No Other, No Redness ENT: No Ear pain, No Ear discharge, No Nose pain, No Nose discharge, No Nose congestion, No Mouth pain, No Mouth swelling, No Throat pain, No Throat swelling, No Other Cardiovascular: No Chest Pain, No Palpitations, No Orthopnea, No Paroxysmal Noc. Dyspnea, No Edema, No Lt Headedness, No Other Respiratory: Cough; No Dry; Shortness of breath; No SOB with excertion, No Wheezing; Hemoptysis; No Pleuritic Pain, No Sputum, No Other Gastrointestinal: No Nausea, No Vomiting, No Abdominal Pain, No Diarrhea, No Constipation, No Melena, No Hematochezia, No Other Genitourinary: No Dysuria, No Frequency, No Incontinence, No Hematuria, No Retention, No Other Musculoskeletal: No other, No neck pain, No shoulder pain, No arm pain, No back pain, No hand pain, No leg pain, No foot pain Skin: No Rash, No Lesions, No Jaundice, No Bruising, No Other Objective Vitals Vital Signs Date Time Temp Pulse Resp B/P (MAP) Pulse Ox O2 Delivery O2 Flow Rate FiO2 09/25/24 16:23 98.1 83 19 85/56 (66) 92 98.1 09/25/24 11:15 Nasal Cannula 2.0 09/25/24 11:15 28 Intake/Output Intake and Output 09/25/24 07:00 Intake Total 1600 ml Output Total 1300 ml Balance 300 ml Intake Oral 1300 ml IV Total 300 ml Output Urine Total 1300 ml # Bowel Movements 3 Exam HEENT pupils are reactive Neck is supple CV is S1-S2 regular rate and rhythm Respiratory diminished breath sounds bases GI positive bowel sound Extremity no edema 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 General Appearance: Alert, Oriented X3, Cooperative, mild distress HEENT: Atraumatic, PERRLA Lungs: Other (Decreased breath sounds bilaterally) Cardiovascular: Normal S1, Normal S2 Abdomen: Normal bowel sounds, Soft, No tenderness, No hepatospenomegaly Musculoskeletal: Normal sensory function, Normal motor function Neuro: Normal gait, Normal speech, Cranial nerves 3-12 NL Skin: Dry, Intact Psych/Mental Status: Mental status NL, Mood NL Medications Current Medications Medications Dose Ordered Sig/Callie Route Start Time Stop Time Status Last Admin Dose Admin Sodium Chloride 10 ml Q8HR IV 09/19/24 14:00 09/25/24 15:04 10 ML Acetaminophen/ Hydrocodone Bitart 1 tab Q4HP PRN PO 09/19/24 12:45 09/19/24 21:23 1 TAB Ondansetron HCl 4 mg Q4HP PRN IV 09/19/24 12:45 Docusate Sodium 100 mg BIDPRN PRN PO 09/19/24 12:45 Acetaminophen 650 mg Q6HP PRN PO 09/19/24 12:45 Azithromycin 250 ml @ 125 mls/hr DAILY IV 09/20/24 10:00 09/25/24 10:30 125 MLS/HR Ceftriaxone Sodium 50 ml @ 100 mls/hr DAILY@09 IV 09/20/24 09:00 09/25/24 10:29 100 MLS/HR Guaifenesin/ Codeine Phosphate 5 ml Q6HP PRN PO 09/19/24 18:15 09/22/24 09:44 5 ML Ipratropium [place] 0.5 mg Q6HWA NEB 09/20/24 18:00 09/25/24 11:15 0.5 MG Budesonide 0.5 mg BID NEB 09/20/24 22:00 09/25/24 06:25 0.5 MG Methylprednisolone Sodium Succinate 40 mg DAILY IV 09/22/24 10:00 09/25/24 10:29 40 MG Levalbuterol HCl 0.625 mg Q6HWA NEB 09/21/24 18:00 09/25/24 11:15 0.625 MG Alprazolam 0.25 mg Q8HP PRN PO 09/21/24 14:45 Metoprolol Succinate 25 mg DAILY PO 09/22/24 10:00 09/25/24 10:31 25 MG Sacubitril/ Valsartan 0.5 tab BID PO 09/22/24 10:00 09/25/24 10:30 0.5 TAB Spironolactone 25 mg DAILY PO 09/22/24 10:00 09/25/24 10:30 25 MG Empaglifozin 10 mg DAILY PO 09/23/24 10:00 09/24/24 09:32 10 MG Sodium Chloride 1,000 ml @ 50 mls/hr Q20H IV 09/22/24 14:00 09/24/24 05:28 50 MLS/HR Laboratory Results Laboratory Tests 09/24/24 06:15 Urinalysis Test 09/19/24 20:00 Urine Color Yellow (Yellow) Urine Clarity Clear (Clear) Urine pH 5.0 (5.0-9.0) Urine Specific [place] 1.028 (1.001-1.035) Urine Protein Trace (Negative) H Urine Ketones Negative (Negative) Urine Blood Negative /uL (Negative) Urine Nitrite Negative (Negative) Urine Bilirubin Negative (Negative) Urine Urobilinogen Normal mg/dL (Negative) Urine Leukocyte Esterase Negative /uL (Negative) Urine RBC 1 /hpf (0 - 3) Urine Microscopic WBC 2 /HPF (0-3) Urine Squamous Epithelial Cells Few /hpf (<5) Urine Bacteria None seen /hpf (None Seen) Urine Mucus Few (None Seen) Urine Glucose Normal mg/dL (Normal) Assessment/Plan Assessment/Plan 69-year-old male with a known history of cardiomyopathy , polysubstance abuse initially admitted to the hospital with shortness of breaths found to have 1. Acute hypoxic respiratory failure secondary to acute CHF exacerbation 2. Acute CHF exacerbation with systolic dysfunction 3. Cardiomyopathy with EF of 15% status post left heart catheterization shows no evidence of coronary artery disease 4. Illicit drug use -continue current meds, arrange LifeVest. Plan discussed with: Patient Date of Service: Sep 25, 2024 Billing Provider: ANNE MARKS MD Common Visit Codes: [id number] INP/OBS CARE(MOD) ANNE MARKS MD Sep 25, 2024 17:47
[2024-09-26] VITALS (13 sets, daily range): BP systolic 90–99; BP diastolic 56–69; PULSE 57–109; RESP 16–20; TEMP 97.1–98.7; O2SAT 91–100
--- NOTE | 2024-09-26 10:02 | DVHPN2 ---
Subjective 69-year-old male who was admitted for heart failure and his ejection fraction was 15% Currently he is on room air He was recommended to have a LifeVest which are waiting on The patient is stable for discharge once the vest is here Heart catheterization was done was negative for coronary artery disease Reviewed: Care Plan, H&P, Labs, Medications Changes from previous H/P or p: Changes General: Per HPI Eyes: No Pain, No Vision change, No Conjunctivae inflammation, No Eyelid inflammation, No Other, No Redness ENT: No Ear pain, No Ear discharge, No Nose pain, No Nose discharge, No Nose congestion, No Mouth pain, No Mouth swelling, No Throat pain, No Throat swelling, No Other Cardiovascular: No Chest Pain, No Palpitations, No Orthopnea, No Paroxysmal Noc. Dyspnea, No Edema, No Lt Headedness, No Other Respiratory: Cough; No Dry; Shortness of breath; No SOB with excertion, No Wheezing; Hemoptysis; No Pleuritic Pain, No Sputum, No Other Gastrointestinal: No Nausea, No Vomiting, No Abdominal Pain, No Diarrhea, No Constipation, No Melena, No Hematochezia, No Other Genitourinary: No Dysuria, No Frequency, No Incontinence, No Hematuria, No Retention, No Other Musculoskeletal: No other, No neck pain, No shoulder pain, No arm pain, No back pain, No hand pain, No leg pain, No foot pain Skin: No Rash, No Lesions, No Jaundice, No Bruising, No Other Objective Vitals Vital Signs Date Time Temp Pulse Resp B/P (MAP) Pulse Ox O2 Delivery O2 Flow Rate FiO2 09/26/24 06:54 85 16 100 09/26/24 06:44 Nasal Cannula 2.0 09/26/24 06:44 28 09/26/24 05:00 98.7 99/69 (79) 98.7 Intake/Output Intake and Output 09/26/24 07:00 Intake Total 1690 ml Output Total 1300 ml Balance 390 ml Intake Oral 1240 ml IV Total 50 ml Tube Feeding 400 ml Output Urine Total 1300 ml General Appearance: Alert, Oriented X3, Cooperative, mild distress HEENT: Atraumatic, PERRLA Lungs: Other (Decreased breath sounds bilaterally) Cardiovascular: Normal S1, Normal S2 Abdomen: Normal bowel sounds, Soft, No tenderness, No hepatospenomegaly Musculoskeletal: Normal sensory function, Normal motor function Neuro: Normal gait, Normal speech, Cranial nerves 3-12 NL Skin: Dry, Intact Psych/Mental Status: Mental status NL, Mood NL Medications Current Medications Medications Dose Ordered Sig/Callie Route Start Time Stop Time Status Last Admin Dose Admin Sodium Chloride 10 ml Q8HR IV 09/19/24 14:00 09/26/24 06:17 10 ML Acetaminophen/ Hydrocodone Bitart 1 tab Q4HP PRN PO 09/19/24 12:45 09/19/24 21:23 1 TAB Ondansetron HCl 4 mg Q4HP PRN IV 09/19/24 12:45 Docusate Sodium 100 mg BIDPRN PRN PO 09/19/24 12:45 Acetaminophen 650 mg Q6HP PRN PO 09/19/24 12:45 Azithromycin 250 ml @ 125 mls/hr DAILY IV 09/20/24 10:00 09/25/24 10:30 125 MLS/HR Ceftriaxone Sodium 50 ml @ 100 mls/hr DAILY@09 IV 09/20/24 09:00 09/26/24 08:59 100 MLS/HR Guaifenesin/ Codeine Phosphate 5 ml Q6HP PRN PO 09/19/24 18:15 09/22/24 09:44 5 ML Ipratropium [place] 0.5 mg Q6HWA [facility] 09/20/24 18:00 09/26/24 06:41 0.5 MG Budesonide 0.5 mg BID NEB 09/20/24 22:00 09/26/24 06:42 0.5 MG Methylprednisolone Sodium Succinate 40 mg DAILY IV 09/22/24 10:00 09/26/24 09:01 40 MG Levalbuterol HCl 0.625 mg Q6HWA NEB 09/21/24 18:00 09/26/24 06:42 0.625 MG Alprazolam 0.25 mg Q8HP PRN PO 09/21/24 14:45 Metoprolol Succinate 25 mg DAILY PO 09/22/24 10:00 09/25/24 10:31 25 MG Sacubitril/ Valsartan 0.5 tab BID PO 09/22/24 10:00 09/26/24 09:02 0.5 TAB Spironolactone 25 mg DAILY PO 09/22/24 10:00 09/26/24 09:02 25 MG Empaglifozin 10 mg DAILY PO 09/23/24 10:00 09/26/24 09:02 10 MG Sodium Chloride 1,000 ml @ 50 mls/hr Q20H IV 09/22/24 14:00 09/26/24 09:10 50 MLS/HR Laboratory Results Laboratory Tests 09/24/24 06:15 Urinalysis Test 09/19/24 20:00 Urine Color Yellow (Yellow) Urine Clarity Clear (Clear) Urine pH 5.0 (5.0-9.0) Urine Specific [place] 1.028 (1.001-1.035) Urine Protein Trace (Negative) H Urine Ketones Negative (Negative) Urine Blood Negative /uL (Negative) Urine Nitrite Negative (Negative) Urine Bilirubin Negative (Negative) Urine Urobilinogen Normal mg/dL (Negative) Urine Leukocyte Esterase Negative /uL (Negative) Urine RBC 1 /hpf (0 - 3) Urine Microscopic WBC 2 /HPF (0-3) Urine Squamous Epithelial Cells Few /hpf (<5) Urine Bacteria None seen /hpf (None Seen) Urine Mucus Few (None Seen) Urine Glucose Normal mg/dL (Normal) Assessment/Plan Assessment/Plan 1. Acute hypoxic respiratory failure secondary to acute CHF exacerbation 2. Acute CHF exacerbation with systolic dysfunction 3. Cardiomyopathy with EF of 15% status post left heart catheterization shows no evidence of coronary artery disease 4. Illicit drug use Plan Discontinue the IV fluids Continue Aldactone Entresto Beta blockers Jardiance No Lasix as needed, no edema IV steroids LifeVest arrangements in progress Discharged home once LifeVest is available Plan discussed with: Patient Date of Service: Sep 26, 2024 Billing Provider: PRIMO HARPER MD Common Visit Codes: NOT BILLABLE PRIMO HARPER MD Sep 26, 2024 10:02
--- NOTE | 2024-09-26 13:58 | DVHPN2 ---
Consult Progress Note Subjective Other Systems: Patient remains in normal sinus rhythm at time of assessment. Nonsustained V-tach, five beats, seen overnight on electronic device monitor Patient denies any cardiac symptoms Objective vital signs Vital Sign Date Time Temp Pulse Resp B/P (MAP) Pulse Ox O2 Delivery O2 Flow Rate FiO2 09/26/24 12:00 97.1 108 20 93/60 (71) 97 97.1 09/26/24 08:00 Nasal Cannula* 2 28 Total Intake and Output 09/25/24 09/25/24 09/26/24 15:00 23:00 07:00 Intake Total 50 ml 1000 ml 640 ml Output Total 1300 ml Balance 50 ml -300 ml 640 ml medications Current Medications Medications Dose Ordered Sig/Callie Route Start Time Stop Time Status Last Admin Dose Admin Sodium Chloride 10 ml Q8HR IV 09/19/24 14:00 09/26/24 06:17 10 ML Acetaminophen/ Hydrocodone Bitart 1 tab Q4HP PRN PO 09/19/24 12:45 09/19/24 21:23 1 TAB Ondansetron HCl 4 mg Q4HP PRN IV 09/19/24 12:45 Docusate Sodium 100 mg BIDPRN PRN PO 09/19/24 12:45 Acetaminophen 650 mg Q6HP PRN PO 09/19/24 12:45 Azithromycin 250 ml @ 125 mls/hr DAILY IV 09/20/24 10:00 09/26/24 10:57 125 MLS/HR Ceftriaxone Sodium 50 ml @ 100 mls/hr DAILY@09 IV 09/20/24 09:00 09/26/24 08:59 100 MLS/HR Guaifenesin/ Codeine Phosphate 5 ml Q6HP PRN PO 09/19/24 18:15 09/22/24 09:44 5 ML Ipratropium [place] 0.5 mg Q6HWA NEB 09/20/24 18:00 09/26/24 11:41 0.5 MG Budesonide 0.5 mg BID NEB 09/20/24 22:00 09/26/24 06:42 0.5 MG Methylprednisolone Sodium Succinate 40 mg DAILY IV 09/22/24 10:00 09/26/24 09:01 40 MG Levalbuterol HCl 0.625 mg Q6HWA NEB 09/21/24 18:00 09/26/24 11:41 0.625 MG Alprazolam 0.25 mg Q8HP PRN PO 09/21/24 14:45 Metoprolol Succinate 25 mg DAILY PO 09/22/24 10:00 09/25/24 10:31 25 MG Sacubitril/ Valsartan 0.5 tab BID PO 09/22/24 10:00 09/26/24 09:02 0.5 TAB Spironolactone 25 mg DAILY PO 09/22/24 10:00 09/26/24 09:02 25 MG Empaglifozin 10 mg DAILY PO 09/23/24 10:00 09/26/24 09:02 10 MG Examination: GENERAL:Normal, LUNGS:Normal, CVS:Normal, NEURO:Normal laboratory and microbiology Laboratory Tests 09/24/24 06:15 Test 09/24/24 06:15 Range/Units Serum Glucose 104 74-106 mg/dL Problem List/Assessment/Plan Problem List/Assessment/Plan Non ischemic, drug-induced cardiomyopathy Ruled out coronary artery disease Acute on chronic HFrEF, NYHA class III, newly diagnosed Nonsustained ventricular tachycardia Hypertension Pulmonary hypertension, moderate degree COPD Tobacco use Methamphetamine use Plan/Recommendations (Dr. Rico): The patient underwent a coronary angiogram with left heart catheterization on 09/23/2024 which revealed normal coronary arteries and an EF of approximately 15%. We will recommend for the patient to continue with guideline directed medical therapy for CHF as tolerated. The patient was also offered a LifeVest, which he has accepted. Pending social service consult for LifeVest arrangements. Patient given extensive education about cessation of illicit substance use. The patient may qualify for ICD implantation if no improvement in EF within 3-6 months on uninterrupted GDMT. The patient was educated that he will need to follow up with Cardiology in the outpatient setting. There is no further inpatient cardiac workup indicated at this time. Thank you for allowing us to care for this patient. Please call with any questions or concerns. This medical document was created using an electronic medical record system with voice recognition software and computerized dictation system. Although this document has been carefully reviewed, there might still be some phonetic and typographical errors. Occasional wrong-word or ``sound-alike substitutions may have occurred due to the inherent limitations of voice recognition software. These areas are purely typographical due to imperfections of the software programs and do not reflect any compromise in the patient's medical care. Please read the chart carefully and recognize, using context, where these substitutions have occurred. Plan discussed with: Patient Dietary Evaluation Review Comments: 1) CCHO 75 + cardiac diet 2) Refer Outpatient Psychiatrist for diabetes education Expected Outcomes/Goals: To meet >75% estimated needs Lab values to improve Fu 3-5 days Date of Service: Sep 26, 2024 Billing Provider: NAYELI MARS Common Visit Codes: [id number] INP/OBS CARE(HIGH) NAYEIL MARS Sep 26, 2024 13:58
[2024-09-27] VITALS (14 sets, daily range): BP systolic 92–100; BP diastolic 57–67; PULSE 70–105; RESP 16–20; TEMP 97.1–98.4; O2SAT 92–100
--- NOTE | 2024-09-27 09:05 | DVHPN2 ---
Subjective No new complaints We are still waiting for the LifeVest Reviewed: Care Plan, H&P, Labs, Medications Changes from previous H/P or p: Changes General: Per HPI Eyes: No Pain, No Vision change, No Conjunctivae inflammation, No Eyelid inflammation, No Other, No Redness ENT: No Ear pain, No Ear discharge, No Nose pain, No Nose discharge, No Nose congestion, No Mouth pain, No Mouth swelling, No Throat pain, No Throat swelling, No Other Cardiovascular: No Chest Pain, No Palpitations, No Orthopnea, No Paroxysmal Noc. Dyspnea, No Edema, No Lt Headedness, No Other Respiratory: Cough; No Dry; Shortness of breath; No SOB with excertion, No Wheezing; Hemoptysis; No Pleuritic Pain, No Sputum, No Other Gastrointestinal: No Nausea, No Vomiting, No Abdominal Pain, No Diarrhea, No Constipation, No Melena, No Hematochezia, No Other Genitourinary: No Dysuria, No Frequency, No Incontinence, No Hematuria, No Retention, No Other Musculoskeletal: No other, No neck pain, No shoulder pain, No arm pain, No back pain, No hand pain, No leg pain, No foot pain Skin: No Rash, No Lesions, No Jaundice, No Bruising, No Other Objective Vitals Vital Signs Date Time Temp Pulse Resp B/P (MAP) Pulse Ox O2 Delivery O2 Flow Rate FiO2 09/27/24 06:34 94 18 98 09/27/24 06:26 Room Air* 0 21 09/27/24 05:00 97.8 93/60 (71) 97.8 Intake/Output Intake and Output 09/27/24 07:00 Intake Total 1300 ml Output Total 1600 ml Balance -300 ml Intake Oral 1000 ml IV Total 300 ml Output Urine Total 1600 ml # Bowel Movements 1 General Appearance: Alert, Oriented X3, Cooperative, mild distress HEENT: Atraumatic, PERRLA Lungs: Other (Decreased breath sounds bilaterally) Cardiovascular: Normal S1, Normal S2 Abdomen: Normal bowel sounds, Soft, No tenderness, No hepatospenomegaly Musculoskeletal: Normal sensory function, Normal motor function Neuro: Normal gait, Normal speech, Cranial nerves 3-12 NL Skin: Dry, Intact Psych/Mental Status: Mental status NL, Mood NL Medications Current Medications Medications Dose Ordered Sig/Callie Route Start Time Stop Time Status Last Admin Dose Admin Sodium Chloride 10 ml Q8HR IV 09/19/24 14:00 09/27/24 06:45 10 ML Acetaminophen/ Hydrocodone Bitart 1 tab Q4HP PRN PO 09/19/24 12:45 09/19/24 21:23 1 TAB Ondansetron HCl 4 mg Q4HP PRN IV 09/19/24 12:45 Docusate Sodium 100 mg BIDPRN PRN PO 09/19/24 12:45 Acetaminophen 650 mg Q6HP PRN PO 09/19/24 12:45 Azithromycin 250 ml @ 125 mls/hr DAILY IV 09/20/24 10:00 09/26/24 10:57 125 MLS/HR Ceftriaxone Sodium 50 ml @ 100 mls/hr DAILY@09 IV 09/20/24 09:00 09/26/24 08:59 100 MLS/HR Guaifenesin/ Codeine Phosphate 5 ml Q6HP PRN PO 09/19/24 18:15 09/22/24 09:44 5 ML Ipratropium [place] 0.5 mg Q6HWA [facility] 09/20/24 18:00 09/27/24 06:26 0.5 MG Budesonide 0.5 mg BID NEB 09/20/24 22:00 09/27/24 06:26 0.5 MG Methylprednisolone Sodium Succinate 40 mg DAILY IV 09/22/24 10:00 09/26/24 09:01 40 MG Levalbuterol HCl 0.625 mg Q6HWA NEB 09/21/24 18:00 09/27/24 06:26 0.625 MG Alprazolam 0.25 mg Q8HP PRN PO 09/21/24 14:45 Metoprolol Succinate 25 mg DAILY PO 09/22/24 10:00 09/25/24 10:31 25 MG Sacubitril/ Valsartan 0.5 tab BID PO 09/22/24 10:00 09/26/24 21:58 0.5 TAB Spironolactone 25 mg DAILY PO 09/22/24 10:00 09/26/24 09:02 25 MG Empaglifozin 10 mg DAILY PO 09/23/24 10:00 09/26/24 09:02 10 MG Laboratory Results Laboratory Tests 09/24/24 06:15 Urinalysis Test 09/19/24 20:00 Urine Color Yellow (Yellow) Urine Clarity Clear (Clear) Urine pH 5.0 (5.0-9.0) Urine Specific [place] 1.028 (1.001-1.035) Urine Protein Trace (Negative) H Urine Ketones Negative (Negative) Urine Blood Negative /uL (Negative) Urine Nitrite Negative (Negative) Urine Bilirubin Negative (Negative) Urine Urobilinogen Normal mg/dL (Negative) Urine Leukocyte Esterase Negative /uL (Negative) Urine RBC 1 /hpf (0 - 3) Urine Microscopic WBC 2 /HPF (0-3) Urine Squamous Epithelial Cells Few /hpf (<5) Urine Bacteria None seen /hpf (None Seen) Urine Mucus Few (None Seen) Urine Glucose Normal mg/dL (Normal) Assessment/Plan Assessment/Plan 1. Acute hypoxic respiratory failure secondary to acute CHF exacerbation 2. Acute CHF exacerbation with systolic dysfunction 3. Cardiomyopathy with EF of 15% status post left heart catheterization shows no evidence of coronary artery disease 4. Illicit drug use Plan Discontinue the IV fluids Continue Aldactone Entresto Beta blockers Jardiance No Lasix as needed, no edema IV steroids LifeVest arrangements in progress Discharged home once LifeVest is available 09/27/2024: Discharged home once the LifeVest is delivered Continue the GDMT regimen The plan is to go home on guideline directed medical therapy for 90 days and if the ejection fraction is still low at that time then he will qualify for a permanent ICD Plan discussed with: Patient Date of Service: Sep 27, 2024 Billing Provider: PRIMO HARPER MD Common Visit Codes: NOT BILLABLE PRIMO HARPER MD Sep 27, 2024 09:04
[2024-09-28] VITALS (10 sets, daily range): BP systolic 94–106; BP diastolic 57–88; PULSE 69–102; RESP 18–19; TEMP 36.9; O2SAT 92–100
[2024-09-28] MEDS ORDERED: METH4PAK PO (09:22)
[2024-09-28] MEDS ORDERED: SACU1TAB PO (09:22)
[2024-09-28] MEDS ORDERED: METO25TA36 PO (09:22)
[2024-09-28] MEDS ORDERED: SPIR25TA PO (09:22)
[2024-09-28] MEDS ORDERED: EMPA1TAB PO (09:22)
--- NOTE | 2024-09-28 09:26 | DVHDS2 ---
Discharge Summary Date of Admission Sep 19, 2024 at 12:39 Date of Discharge: Sep 28, 2024 Labs/Diagnostic Data: Laboratory Results Test 09/24/24 06:15 09/23/24 06:05 09/21/24 06:33 09/20/24 15:03 White Blood Count 10.8 10^3/uL (4.4-10.8) Red Blood Count 4.06 10^6/uL (4.5-5.90) Hemoglobin 12.8 g/dL (13.5-17.5) Hematocrit 38.3 % (41.0-53.0) Mean Corpuscular Volume 94.3 fL (80.0-100.0) Mean Corpuscular Hemoglobin 31.5 pg (28.0-32.0) Mean Corpuscular Hemoglobin Concent 33.4 g/dL (32.0-36.0) Red Cell Distribution Width 16.7 % (11.8-14.3) Platelet Count 220 10^3/uL (140-450) Mean Platelet Volume 8.3 fL (6.9-10.8) Neutrophils (%) (Auto) 79.4 % (37.0-80.0) Lymphocytes (%) (Auto) 13.8 % (10.0-50.0) Monocytes (%) (Auto) 6.6 % (0.0-12.0) Eosinophils (%) (Auto) 0.1 % (0.0-7.0) Basophils (%) (Auto) 0.1 % (0.0-2.0) Neutrophils # (Auto) 8.6 10 ^3/uL (1.6-8.6) Lymphocytes # (Auto) 1.5 10 ^3/uL (0.4-5.4) Monocytes # (Auto) 0.7 10 ^3/uL (0-1.3) Eosinophils # (Auto) 0 10 ^3/uL (0-0.8) Basophils # (Auto) 0 10 ^3/uL (0-0.2) Nucleated Red Blood Cells 0.1 % Sodium Level 142 mmol/L (136-145) Potassium Level 4.5 mmol/L (3.5-5.1) Chloride Level 106 mmol/L (98-107) Carbon Dioxide Level 26 mmol/L (20-31) Anion Gap 10 (5-15) Blood Urea Nitrogen 29 mg/dL (9-23) Creatinine 1.32 mg/dL (0.700-1.30) Glomerular Filtration Rate Calc 58 mL/min (>90) BUN/Creatinine Ratio 22.0 (10.0-20.0) Serum Glucose 104 mg/dL (74-106) Calcium Level 9.9 mg/dL (8.7-10.4) Prothrombin Time 11.4 sec (9.3-11.8) Prothrombin Time INR 1.08 (0.9-1.15) Activated Partial Thromboplast Time 25.2 SEC (24.5-34.5) Hemoglobin A1c 6.0 % A1C (<5.7) Magnesium Level 2.2 mg/dL (1.6-2.6) Triglycerides Level 74 mg/dL (< 150) Cholesterol Level 112 mg/dL (< 200) LDL Cholesterol 59 mg/dL (< 100) HDL Cholesterol 36 mg/dL (40-59) Thyroid Stimulating Hormone (TSH) 1.10 uIU/mL (0.55-4.78) Urine Opiates Screen Pos (NEGATIVE) Urine Fentanyl Screen Neg (NEGATIVE) Urine Barbiturates Screen Neg (NEGATIVE) Urine Phencyclidine Screen Neg (NEGATIVE) Urine Amphetamines Screen Pos (NEGATIVE) Urine Benzodiazepines Screen Neg (NEGATIVE) Urine Cocaine Screen Neg (NEGATIVE) Urine Cannabinoids Screen Neg (NEGATIVE) Blood Gas Specimen Type Arterial Blood Gas Sample Site Right radial Blood Gas Patient Temperature 37.0 Arterial Blood Date Drawn [id number] Arterial Blood pH 7.394 (7.350-7.450) Arterial Blood Partial Pressure CO2 30.7 mmHg (35.0-48.0) Arterial Blood Partial Pressure O2 73.9 mmHg (83.0-108.0) Arterial Blood HCO3 18.3 mmol/L (21.0-28.0) Arterial Blood Oxygen Saturation 92.9 % (94.0-98.0) Arterial Blood Base Excess -5.4 mmol/L (-2.0-3.0) Arterial Blood Oxyhemoglobin 92.1 % (94.0-98.0) Arterial Blood Carboxyhemoglobin 0.5 % (0.5-1.5) Arterial Blood Methemoglobin 0.4 % (0.0-1.5) Germán Test Yes Blood Gas Total Hemoglobin 13.10 g/dL (13.5-17.5) Blood Gas Modality Room air FiO2 % 21.0 Test 09/20/24 04:33 09/19/24 20:00 09/19/24 13:27 09/19/24 13:04 Total Bilirubin 1.5 mg/dL (0.2-1.0) Aspartate Amino Transferase (AST) 17 U/L (13-40) Alanine Aminotransferase (ALT) 9 U/L (7-40) Alkaline Phosphatase 54 U/L (46-116) Total Protein 6.4 g/dL (5.7-8.2) Albumin 3.8 g/dL (3.2-4.8) Urine Color Yellow (Yellow) Urine Clarity Clear (Clear) Urine pH 5.0 (5.0-9.0) Urine Specific [place] 1.028 (1.001-1.035) Urine Protein Trace (Negative) Urine Ketones Negative (Negative) Urine Blood Negative /uL (Negative) Urine Nitrite Negative (Negative) Urine Bilirubin Negative (Negative) Urine Urobilinogen Normal mg/dL (Negative) Urine Leukocyte Esterase Negative /uL (Negative) Urine RBC 1 /hpf (0 - 3) Urine Microscopic WBC 2 /HPF (0-3) Urine Squamous Epithelial Cells Few /hpf (<5) Urine Bacteria None seen /hpf (None Seen) Urine Mucus Few (None Seen) Urine Glucose Normal mg/dL (Normal) Lactic Acid Level 2.0 mmol/L (0.4-2.0) Troponin I High Sensitivity 54 ng/L (</=54) Other Laboratory Tests 09/24/24 06:15 Brief Hx & Hospital Course: Final diagnoses: 1. Acute hypoxic respiratory failure secondary to acute CHF exacerbation 2. Acute CHF exacerbation with systolic dysfunction 3. Cardiomyopathy with EF of 15% status post left heart catheterization shows no evidence of coronary artery disease 4. Illicit drug use COPD 69-year-old male who was admitted for acute respiratory failure and COPD He was also found to have dilated cardiomyopathy with ejection fraction 15% Heart catheterization showed no evidence of coronary artery disease The patient has a history of illicit drug use Overall the patient remained stable He is on room air now Cardiology recommended a LifeVest which is at the bedside now the patient has it on The patient is stable for discharge Follow up with Cardiology as an outpatient He will continue the GDMT empty regimen including Entresto, beta fredi, Aldactone, and Jardiance Condition at Discharge: Stable Final Diagnosis/Problems List Dilated nonischemic cardiomyopathy Acute hypoxic respiratory failure secondary to acute CHF exacerbation Acute CHF exacerbation with systolic dysfunction Cardiomyopathy with EF of 15% status post left heart catheterization shows no evidence of coronary artery disease Illicit drug use Discharge Disposition: Home SNF Discharge Will this Physician continue t: No Discharge Instruct/Medications Diet: Cardiac 2g Na,low cholest Activity: No Restrictions, As Tolerated Follow Up/Referral: Cardiology as soon as possible Medications: Entresto Metoprolol Aldactone Jardiance Medrol Dosepak Scheduled Ciprofloxacin Hcl (Ciprofloxacin Hcl), 1 TAB PO BID Empagliflozin (Jardiance), 10 MG PO DAILY Methylprednisolone (Medrol Dosepak), 4 MG PO UD Metoprolol Succinate (Toprol Xl), 1 TAB PO DAILY Oxycodone W/ Acetaminophen (Percocet 5/325MG), 1 TAB PO BID Sacubitril-Valsartan (Entresto 24-26 mg), 0.5 TAB PO BID Spironolactone (Aldactone), 25 MG PO DAILY Tamsulosin Hcl (Flomax), 0.4 MG PO QPM Discharge Statement: "Patient was advised to return to the ER or call 911 if any headaches, dizziness, shortness of breath, chest pain, abdominal pain, bleeding, fevers, or worsening of medical condition. Patient was counseled about treatment plan, medications, possible side effects, patientverbalized understanding. All questions were answered to the best of my ability. This discharge took greater then 30 minutes in planning, reviewing documentation, counseling the patient, and discussing with other team members." ASSESSMENT ASSESSMENT Assessment Dilated nonischemic cardiomyopathy Acute hypoxic respiratory failure secondary to acute CHF exacerbation Acute CHF exacerbation with systolic dysfunction Cardiomyopathy with EF of 15% status post left heart catheterization shows no evidence of coronary artery disease Illicit drug use Date of Service: Sep 28, 2024 Billing Provider: PRIMO HARPER MD Common Visit Codes: NOT BILLABLE PRIMO HARPER MD Sep 28, 2024 09:26
== END 2024-09-28 12:43 | disposition home or self-care (01) | DRG 286 ==
LOC: ER 08:33 → OVERFLOW 12:39 → TELE-WESTW 17:17
PROVIDERS: ADMIT Internal Medicine Geriatric Medicine; ATTEND Internal Medicine Geriatric Medicine
PROC: 4A023N7 Measurement of Cardiac Sampling and Pressure, Left Heart, Percutaneous Approach (ICD-10-PCS; principal; 2024-09-23)
PROC: B2111ZZ Fluoroscopy of Multiple Coronary Arteries using Low Osmolar Contrast (ICD-10-PCS; 2024-09-23)
PROC: B2151ZZ Fluoroscopy of Left Heart using Low Osmolar Contrast (ICD-10-PCS; 2024-09-23)
DX: I11.0 Hypertensive heart disease with heart failure (principal); I50.23 Acute on chronic systolic (congestive) heart failure; J96.01 Acute respiratory failure with hypoxia; J44.1 Chronic obstructive pulmonary disease with (acute) exacerbation; I47.20 Ventricular tachycardia, unspecified; R04.2 Hemoptysis; I42.0 Dilated cardiomyopathy; F17.210 Nicotine dependence, cigarettes, uncomplicated; F15.90 Other stimulant use, unspecified, uncomplicated; I27.20 Pulmonary hypertension, unspecified; Z88.0 Allergy status to penicillin; Z79.2 Long term (current) use of antibiotics; Z80.1 Family history of malignant neoplasm of trachea, bronchus and lung; Z83.3 Family history of diabetes mellitus; Z79.899 Other long term (current) drug therapy
CPT/HCPCS: 36415; 36600; 71045; 71275; 80048; 80053; 80061; 80307; 81001; 82805; 83036; 83605; 83735; 84443; 84484; 85025; 85610; 85730; 86850; 86900; 86901; 93005; 93306; 94640; 96365; 99152; 99291; 99292; G0378; J2250

== ENCOUNTER 2025-02-13 17:14 | Inpatient (IN) | payer OTHER, MEDICAID ==
[~2025-02-13] VITALS: Ht 188 cm; Wt 90.0 kg
[~2025-02-13 17:14] MED LIST changes: -CIPR500T4 PO; +EMPA1TAB PO; +METH4PAK PO; +METO25TA36 PO; +SACU1TAB PO; +SPIR25TA PO
--- NOTE | 2025-02-13 17:44 | ED.PDOC ---
SOB-HPI HPI Comments This is a 69 year old male presenting to the ED with chief complaint of SOB. Patient reports that he has been experiencing worsening SOB with associated clear productive cough for the past few days. Patient relays that he has history of COPD and CHF, but is not on any home O2 or nebulizer treatments. Patient states he continues to smoke half a pack a day along with being exposed to second hand smoke. Patient denies any chest pain, dizziness, fever, chills, N/V, or hemoptysis. Chief Complaint: Flu like Time Seen by MD: 17:42 Primary Care Provider: SASCHAK Reviewed notes: Nurses Notes, Medications, Allergies Information Source: Patient Mode of Arrival: Wheelchair Severity: Moderate Timing: Days Duration: Since onset Context: At Rest PE Risk Factors: None History of: COPD, CHF Prehospital treatment: None Modifying Factors: Nothing Associated Signs and Symptoms: Cough If cough with SOB: Productive, Clear Past Medical History PAST MEDICAL HISTORY: CHF, COPD, DM Surgical History: Tonsillectomy Family History Family History: Reviewed,noncontributory to illness, Family hx of DM, Family hx of Cancer, Family hx of heart gracy Social History Smoker: Secondhand, Cigarettes, Less Than 1 Pack/Day Alcohol: Denies ETOH Use Drugs: Marijuana Lives In: Home Constitutional: denies: chills, diaphoresis, fatigue, fever, malaise, sweats, weakness, others EENTM: denies: blurred vision, double vision, ear bleeding, ear discharge, ear drainage, ear pain, ear ringing, eye pain, eye redness, hearing loss, mouth pain, mouth swelling, nasal discharge, nose bleeding, nose congestion, nose pain, photophobia, tearing, throat pain, throat swelling, voice changes, others Respiratory: reports: cough, shortness of breath; denies: hemoptysis, orthopnea, SOB at rest, SOB with excertion, stridor, wheezing, others Cardiovascular: denies: chest pain, dizzy spells, diaphoresis, Dyspnea on exertion, edema, irregular heart beat, left arm pain, lightheadedness, palpitations, PND, syncope, others Gastrointestinal: denies: abdomen distended, abdominal pain, blood streaked bowels, constipated, diarrhea, dysphagia, difficulty swallowing, hematemesis, melena, nausea, poor appetite, poor fluid intake, rectal bleeding, rectal pain, vomiting, others Genitourinary: denies: burning, dysuria, flank pain, frequency, hematuria, incontinence, penile discharge, penile sore, pain, testicle pain, testicle swelling, urgency, others Neurological: denies: dizziness, fainting, headache, left sided numbness, left sided weakness, numbness, paresthesia, pre-existing deficit, right sided numbness, right sided weakness, seizure, speech problems, tingling, tremors, weakness, others Musculoskeletal: denies: back pain, gout, joint pain, joint swelling, muscle pain, muscle stiffness, neck pain, others Integumetry: denies: bruises, change in color, change in hair/nails, dryness, laceration, lesions, lumps, rash, wounds, others Allergic/Immunocompromised: denies: Difficulty Healing, Frequent Infections, Hives, Itching, others Hematologic/Lymphatic: denies: anemia, blood clots, easy bleeding, easy bruising, swollen glands, others Endocrine: denies: excessive hunger, excessive sweating, excessive thirst, excessive urination, flushing, intolerance to cold, intolerance to heat, unexplained weight gain, unexplained weight loss, others Psychiatric: denies: anxiety, bipolar disorder, depression, hopeless, panic disorder, schizophrenia, sleepless, suicidal, others All Other Systems: Reviewed and Negative Physical Exam General Appearance: Moderate Distress HEENT: Normal ENT Inspection, Pharynx Normal, TMs Normal Neck: Full Range of Motion, Non-Tender, Normal, Normal Inspection Respiratory: Chest Non-Tender, Decreased Breath Sounds, No Accessory Muscle Use, Respiratory Distress, Wheezing Cardiovascular: No Edema, No JVD, No Murmur, No Gallop, Tachycardia Breast Exam: Deferred Gastrointestinal: No Organomegaly, Non Tender, No Pulsatile Mass, Normal Bowel Sounds, Soft Genitalia: Deferred Pelvic: Deferred Rectal: Deferred Extremities: No calf tenderness, Normal capillary refill, No pedal edema Musculoskeletal : Apperance: Normal Neurologic: Alert, film and video editor II-XII nml as Tested, Motor Weakness, Normal Affect, Normal Mood, No Sensory Deficits Cerebellar Function: Normal Reflexes: Normal Skin: Dry, Normal Color, Warm Lymphatic: No Adenopathy Was a procedure done? Was a procedure done?: No Differential Dx Differential Diagnosis: CHF, COPD X-Ray, Labs, Meds, VS Vital Signs Date Time Temp Pulse Resp B/P (MAP) Pulse Ox O2 Delivery O2 Flow Rate FiO2 02/13/25 18:08 20 97 Room Air* 0 02/13/25 17:48 97 Room Air* 0 02/13/25 17:47 98.6 67 20 136/79 (98) 97 98.6 02/13/25 17:16 97 Room Air* 0 21 02/13/25 17:16 98.6 67 20 136/79 99 98.6 Lab Test 02/13/25 18:09 02/13/25 18:06 Range/Units White Blood Count 8.5 4.4-10.8 10^3/uL Red Blood Count 3.98 L 4.5-5.90 10^6/uL Hemoglobin 12.4 L 13.5-17.5 g/dL Hematocrit 37.5 L 41.0-53.0 % Mean Corpuscular Volume 94.2 80.0-100.0 fL Mean Corpuscular Hemoglobin 31.0 28.0-32.0 pg Mean Corpuscular Hemoglobin Concent 32.9 32.0-36.0 g/dL Red Cell Distribution Width 16.4 H 11.8-14.3 % Platelet Count 208 140-450 10^3/uL Mean Platelet Volume 9.3 6.9-10.8 fL Neutrophils (%) (Auto) 83.2 H 37.0-80.0 % Lymphocytes (%) (Auto) 10.5 10.0-50.0 % Monocytes (%) (Auto) 5.6 0.0-12.0 % Eosinophils (%) (Auto) 0.0 0.0-7.0 % Basophils (%) (Auto) 0.7 0.0-2.0 % Neutrophils # (Auto) 7.1 1.6-8.6 10 ^3/uL Lymphocytes # (Auto) 0.9 0.4-5.4 10 ^3/uL Monocytes # (Auto) 0.5 0-1.3 10 ^3/uL Eosinophils # (Auto) 0 0-0.8 10 ^3/uL Basophils # (Auto) 0.1 0-0.2 10 ^3/uL Nucleated Red Blood Cells 0.2 % Sodium Level 136 136-145 mmol/L Potassium Level 4.9 3.5-5.1 mmol/L Chloride Level 104 98-107 mmol/L Carbon Dioxide Level 22 20-31 mmol/L Anion Gap 10 5-15 Blood Urea Nitrogen 38 H 9-23 mg/dL Creatinine 1.76 H 0.700-1.30 mg/dL Glomerular Filtration Rate Calc 41 >90 mL/min BUN/Creatinine Ratio 21.6 H 10.0-20.0 Serum Glucose 125 H 74-106 mg/dL Lactic Acid Level 3.0 *H 0.4-2.0 mmol/L Calcium Level 9.7 8.7-10.4 mg/dL Troponin I High Sensitivity 147 *H </=54 ng/L B-Type Natriuretic Peptide 1156.22 0-100 pg/mL Influenza Type A Antigen Negative Negative Influenza Type B Antigen Negative Negative SARS-CoV-2 Antigen (Rapid) Negative NEGATIVE Current Medications Medications (Trade) Dose Ordered Sig/Callie Route Start Time Stop Time Status Last Admin Methylprednisolone Sodium Succinate (Solu Medrol) 125 mg ONCE ONCE IV 02/13/25 17:45 02/13/25 18:05 DC 02/13/25 18:00 Ipratropium [place] (Atrovent Medneb) 1 mg ONCE ONCE N 02/13/25 17:45 02/13/25 18:05 DC 02/13/25 18:05 Albuterol (Ventolin Medneb) 20 mg ONCE ONCE N 02/13/25 17:45 02/13/25 18:05 DC 02/13/25 18:05 IV Hep-Lock was established. The patient was given Solu-Medrol 125 mg IV push The patient was given a continuous breathing treatment of albuterol and Atrovent The patient is being given Lasix 40 mg IV push The chest x-ray was done and shows: IMPRESSION: Cardiomegaly with pulmonary vascular congestion and bilateral patchy airspace opacities. The patient had a negative COVID test The influenza a and influenza B are negative The patient's troponin level came back at 107 initially The BNP is 1156.2 to At this time the patient is having a can not respiratory failure and acute on chronic diastolic heart failure The CBC is within normal limits The chemistry panel shows is 38 and a creatinine of 1.7 A cardiology consult will be obtained. Images Reviewed?: Images reviewed and evaluated by me Time of 1ST Reevaluation: 19:12 Reevaluation 1ST: Unchanged Patient Education/Counseling: Diagnosis, Treatment, Prognosis Family Education/Counseling: No Family Present SEPSIS Sepsis Screen Date sepsis recognized/suspect: Feb 13, 2025 Time Sepsis recognized/suspect: 1716 Recent Procedure: No On Antibiotic Therapy: No Respiratory Rate >20: No Heart Rate >90: No Temp<36 C (96.8 F) or >38.3 C: No SBP <90 or MAP <65 mmHG: No New Acute Mental Status Change: No Is the patient on CPAP, BIPAP,: No Physician Orders Urinalysis (02/13/25 17:43) Med Neb Initial Treatment (02/13/25 17:43) Chest Portable (02/13/25 17:43) Heplock Iv (02/13/25 17:43) Pulse Oximetry (02/13/25 17:43) Paying Teller (02/13/25 17:43) Blood Pressure (02/13/25 17:43) Electrocardigram (02/13/25 17:43) Blood Culture (02/13/25 17:43) Lactic Acid W/ Reflex Order (02/13/25 17:43) Troponin-I Hs (02/13/25 18:43) Troponin-I Hs (02/13/25 20:43) Electrocardigram (02/13/25 18:43) Electrocardigram (02/13/25 20:43) Vital Signs Date Time Temp Pulse Resp B/P (MAP) Pulse Ox O2 Delivery O2 Flow Rate FiO2 02/13/25 18:08 20 97 Room Air* 0 21 02/13/25 17:48 97 Room Air* 0 21 02/13/25 17:47 98.6 67 20 136/79 (98) 97 98.6 02/13/25 17:16 97 Room Air* 0 21 02/13/25 17:16 98.6 67 20 136/79 99 98.6 Laboratory Tests Test 02/13/25 18:09 Lactic Acid Level 3.0 mmol/L (0.4-2.0) *H White Blood Count 8.5 10^3/uL (4.4-10.8) Medications Medications Dose Ordered Sig/Callie Route Start Time Stop Time Status Last Admin Dose Admin Albuterol 20 mg ONCE ONCE HHN 02/13/25 17:45 02/13/25 18:05 DC 02/13/25 18:05 Ipratropium [place] 1 mg ONCE ONCE HHN 02/13/25 17:45 02/13/25 18:05 DC 02/13/25 18:05 Methylprednisolone Sodium Succinate 125 mg ONCE ONCE IV 02/13/25 17:45 02/13/25 18:05 DC 02/13/25 18:00 Departure 1 Departure Time of Disposition: 19:12 Impression: Primary Impression: Acute on chronic diastolic heart failure Additional Impressions: COPD exacerbation Elevated troponin Disposition: ADMITTED INPATIENT Admit to: Tele Condition: Fair Critical Care Note Critical Care Time?: Yes (45 min-critical care time only) Stability Stability form required: Yes Unstable for transfer: Telemetry monitoring (Telemetry monitoring required), ED Physician Assesment (Clinical assesment) Heart Score Heart Score: Heart Score Response (Comments) Value History Moderate Suspicious [address]-Deviation 2 Age >65 2 Risk Factors >3 or Hx ASHD 2 Troponin 1-2 x's Normal limit 1 Total 8 I personally scribed for MARC SIERRA MD ([email or web address]) on 02/13/25 at 17:44. Electronically submitted by Tyler Porras ([email or web address]). MARC SIERRA MD Feb 13, 2025 17:44
[2025-02-13 17:48] VITALS: O2SAT 97
[2025-02-13] MEDS: methylPREDNISolone SOD SUCC 125 MG/2 ML VL IV ONE (18:00)
[2025-02-13] MEDS: IPRATROPIUM BROM 0.5 MG/2.5ML INH SOL HHN ONE (18:05)
[2025-02-13] MEDS: ALBUTEROL SULF 2.5 MG/0.5ML(0.5%) NEB SOLN HHN ONE (18:05)
[2025-02-13 18:30] LABS: Hematocrit 37.5 % (41.0-53.0); Hemoglobin 12.4 g/dL (13.5-17.5); Mean Corpuscular Hemoglobin 31.0 pg (28.0-32.0); Mean Corpuscular Volume 94.2 fL (80.0-100.0); Nucleated Red Blood Cells % 0.2 %
[2025-02-13 18:42] LABS: Chloride 104 mmol/L (98-107); Potassium 4.9 mmol/L (3.5-5.1)
[2025-02-13 18:43] LABS: Anion Gap 10 (5-15); Carbon Dioxide 22 mmol/L (20-31)
[2025-02-13 18:44] LABS: Calcium 9.7 mg/dL (8.7-10.4)
[2025-02-13 18:47] LABS: Sodium 136 mmol/L (136-145)
--- NOTE | 2025-02-13 18:48 | DVH ---
CHEST RADIOGRAPH INDICATION: sob TECHNIQUE: XY CHEST PORTABLE COMPARISON: None FINDINGS: The cardiac silhouette is enlarged. The lungs demonstrate bilateral patchy airspace opacities, most pronounced in the right lower lobe. The pulmonary vasculature is prominent. There is no pleural effusion. There is no pneumothorax. IMPRESSION: Cardiomegaly with pulmonary vascular congestion and bilateral patchy airspace opacities.
[2025-02-13 18:49] LABS: BUN/Creatinine Ratio 21.6 (10.0-20.0); Blood Urea Nitrogen 38 mg/dL (9-23); Glucose 125 mg/dL (74-106)
[2025-02-13 18:56] LABS: Lactic Acid w/Reflex 3.0 mmol/L (0.4-2.0)
[2025-02-13 19:03] LABS: COVID19 ANTIGEN SOFIA FIA NEGATIVE (NEGATIVE)
[2025-02-13] MEDS: FUROSEMIDE 40 MG/4 ML VIAL IV ONE (20:06)
[2025-02-13] MEDS: VANCOMYCIN 1GM/250ML KIT 250 ML IV ONE (20:45)
[2025-02-13] MEDS: SODIUM CHLORIDE 0.9% 500 ML IV ONE (21:26)
[2025-02-13 23:56] LABS: Magnesium 2.0 mg/dL (1.6-2.6)
[2025-02-14] VITALS (9 sets, daily range): BP systolic 91–109; BP diastolic 47–72; PULSE 60–111; RESP 17–20; TEMP 96.8–99.8; O2SAT 93–99
[2025-02-14] MEDS: FUROSEMIDE 40 MG/4 ML VIAL IV SCH (01:19)
[2025-02-14 01:31] LABS: Triglycerides 108 mg/dL (< 150)
[2025-02-14 01:33] LABS: Cholesterol 107 mg/dL (< 200)
[2025-02-14 01:35] LABS: HDL Cholesterol 31 mg/dL (40-59)
--- NOTE | 2025-02-14 01:57 | DVHHPRES ---
History of Present Illness Resident Creating Document: SHARRON FAIRCHILD RESIDENT History of Present Illness History of present illness: Jonatan Griffin Is a 69-year-old male with past medical history of HFrEF with ejection fraction of 15%, COPD, diabetes mellitus, osteoarthritis presented with complaints of shortness of breath and cough since 3 days. He also complains of associated pain in the shoulder blade area, back pain and chest pain. He is not on any home oxygen. He denies any fever or leg swelling. He does not have a primary care doctor and not on any regular follow-up. In the ED, he was on room air. labs revealed troponin 150, lactic acid 4.5, BNP 1100, creatinine 1.76 (baseline 1.3). He is admitted to the hospital for further management and care. PMHx:HFrEF with ejection fraction of 15%, COPD, diabetes mellitus, oste oarthritis PSHx: None Family history: denies any relevant family history Social history: ex-smoker, 57 pack year smoking history, ex alcohol use, active marijuana and methamphetamine use Home medication: none Allergic history: penicillin Review of Systems Review of Systems General: patient denies fever, fatigue, weaknes, sweating, any recent changes in appetite and weight HEENT: No headaches, visiual changes, hearing loss, tinnitus, nasal congestion and discharge, and sore throat. Cardiovascular: Denies chest pain, palpitations, dyspnea on exertion, orthopnea, or claudication. Respiratory: complains of shortness of breath and cough Gastrointestinal: Denies nausea, vomiting, dysphagia, odynophagia, heartburn, abdominal pain, flatulence, bloating, diarrhea, constipation, change in stool, or blood in stool. Genitourinary: No dysuria, hematuria, discharge, frequency, urgency, nocturia, incontinence, and urinary retention. Endocrine: No heat or cold intolerance, polydipsia, polyuria, and polyphagia. Neurological: No dizziness, extremity weakness and numbness, tremors, gait disturbance, seizures, and memory impairment. Psychiatric: Denies depression, anxiety,or insomnia. Musculoskeletal: Denies neck pain, stiffness and swelling, back pain, muscle weakness, joint pain, stiffness, swelling, or limited range of motion. Skin: No rashes, itching, skin lesion, changes in hair, nail, skin texture and breast. Hematologic/Lymphatic: Denies easy bruising, bleeding tendencies, or lymph node enlargement. Allergies: Coded Allergies: Penicillins (Verified Allergy, Unknown, 04/10/21) Medications Current Medications Medications Dose Ordered Sig/Callie Route Start Time Stop Time Status Last Admin Dose Admin Enoxaparin Sodium 40 mg DAILY SC 02/14/25 10:00 Furosemide 40 mg Q12HR IV 02/13/25 23:30 02/14/25 01:19 40 MG Spironolactone 25 mg DAILY PO 02/14/25 10:00 Metoprolol Tartrate 25 mg DAILY PO 02/14/25 10:00 Exam Vital Signs Vital Signs Date Time Temp Pulse Resp B/P (MAP) Pulse Ox O2 Delivery O2 Flow Rate FiO2 02/14/25 01:19 99/68 02/14/25 01:00 97.8 60 17 96 97.8 02/14/25 00:40 Room Air* 0 21 Exam General Appearance: Alert, Oriented X3, Cooperative, No acute distress HEENT: Atraumatic, PERRLA, EOMI, Mucous membrane moist/pink Respiratory: mild crackles in bilateral lung green Cardiovascular: Regular rate, Normal S1, Normal S2, No murmurs, no chest wall tenderness Abdominal: Normal bowel sounds, Soft, No tenderness, No hepatospenomegaly, No masses Extremities: mild peripheral edema Skin: No rashes, No breakdown, No significant lesion Neuro: Normal gait, Normal speech, Strength at 5/5 X4 ext, Normal tone, Sensation intact, Cranial nerves 3-12 NL, Reflexes 2+ Psych/Mental Status: Mental status NL, Mood NL Labs/Xrays Labs Test 02/13/25 21:30 02/13/25 19:57 02/13/25 18:09 02/13/25 18:06 Range/Units Magnesium Level 2.0 1.6-2.6 mg/dL Troponin I High Sensitivity 152 *H </=54 ng/L Triglycerides Level 108 < 150 mg/dL Cholesterol Level 107 < 200 mg/dL LDL Cholesterol 61 < 100 mg/dL HDL Cholesterol 31 L 40-59 mg/dL Thyroid Stimulating Hormone (TSH) 2.82 0.55-4.78 uIU/mL Plasma/Serum Blood Alcohol 4.1 <10 mg/dL Lactic Acid Level 4.5 *H 0.4-2.0 mmol/L White Blood Count 8.5 4.4-10.8 10^3/uL Red Blood Count 3.98 L 4.5-5.90 10^6/uL Hemoglobin 12.4 L 13.5-17.5 g/dL Hematocrit 37.5 L 41.0-53.0 % Mean Corpuscular Volume 94.2 80.0-100.0 fL Mean Corpuscular Hemoglobin 31.0 28.0-32.0 pg Mean Corpuscular Hemoglobin Concent 32.9 32.0-36.0 g/dL Red Cell Distribution Width 16.4 H 11.8-14.3 % Platelet Count 208 140-450 10^3/uL Mean Platelet Volume 9.3 6.9-10.8 fL Neutrophils (%) (Auto) 83.2 H 37.0-80.0 % Lymphocytes (%) (Auto) 10.5 10.0-50.0 % Monocytes (%) (Auto) 5.6 0.0-12.0 % Eosinophils (%) (Auto) 0.0 0.0-7.0 % Basophils (%) (Auto) 0.7 0.0-2.0 % Neutrophils # (Auto) 7.1 1.6-8.6 10 ^3/uL Lymphocytes # (Auto) 0.9 0.4-5.4 10 ^3/uL Monocytes # (Auto) 0.5 0-1.3 10 ^3/uL Eosinophils # (Auto) 0 0-0.8 10 ^3/uL Basophils # (Auto) 0.1 0-0.2 10 ^3/uL Nucleated Red Blood Cells 0.2 % Sodium Level 136 136-145 mmol/L Potassium Level 4.9 3.5-5.1 mmol/L Chloride Level 104 98-107 mmol/L Carbon Dioxide Level 22 20-31 mmol/L Anion Gap 10 5-15 Blood Urea Nitrogen 38 H 9-23 mg/dL Creatinine 1.76 H 0.700-1.30 mg/dL Glomerular Filtration Rate Calc 41 >90 mL/min BUN/Creatinine Ratio 21.6 H 10.0-20.0 Serum Glucose 125 H 74-106 mg/dL Hemoglobin A1c 5.8 H <5.7 % A1C Calcium Level 9.7 8.7-10.4 mg/dL B-Type Natriuretic Peptide 1156.22 0-100 pg/mL Influenza Type A Antigen Negative Negative Influenza Type B Antigen Negative Negative SARS-CoV-2 Antigen (Rapid) Negative NEGATIVE SEPSIS Sepsis Screen Date sepsis recognized/suspect: Feb 13, 2025 Time Sepsis recognized/suspect: 2015 Recent Procedure: No On Antibiotic Therapy: No Respiratory Rate >20: No Heart Rate >90: Yes Temp<36 C (96.8 F) or >38.3 C: No SBP <90 or MAP <65 mmHG: No New Acute Mental Status Change: No Is the patient on CPAP, BIPAP,: No Physician Orders Admit (02/13/25 23:13) Allergies (02/13/25 23:13) Code Status (02/13/25 23:13) Enoxaparin Sodium (Lovenox) (02/14/25 10:00) Fall Risk Precautions In Place QSHIFT (02/13/25 23:13) Complete Blood Count (02/14/25 04:00) Comprehensive Metabolic Panel (02/14/25 04:00) Cardiac Diet-2gna,Lofat,Lochol (02/14/25 Breakfast) Echo 2d Mode Cardiac Dop (02/13/25 23:13) Condition: Fair (02/13/25 23:13) Electrocardigram (02/13/25 23:22) Pt Request For Service (02/13/25 23:22) *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 (02/14/25 ) Vital Signs Date Time Temp Pulse Resp B/P (MAP) Pulse Ox O2 Delivery O2 Flow Rate FiO2 02/14/25 01:19 99/68 02/14/25 01:00 97.8 60 17 99/68 (78) 96 97.8 02/14/25 00:40 97.8 60 17 99/68 (78) 96 97.8 02/14/25 00:40 Room Air* 0 21 02/13/25 20:09 120 20 106/65 (79) 97 02/13/25 20:06 108/58 02/13/25 18:08 20 97 Room Air* 0 21 Laboratory Tests Test 02/13/25 18:09 02/13/25 19:57 Lactic Acid Level 3.0 mmol/L (0.4-2.0) *H 4.5 mmol/L (0.4-2.0) *H White Blood Count 8.5 10^3/uL (4.4-10.8) Medications Medications Dose Ordered Sig/Callie Route Start Time Stop Time Status Last Admin Dose Admin Albuterol 20 mg ONCE ONCE N 02/13/25 17:45 02/13/25 18:05 DC 02/13/25 18:05 20 MG Furosemide 40 mg ONCE ONCE IV 02/13/25 19:15 02/13/25 19:16 DC 02/13/25 20:06 40 MG Furosemide 40 mg Q12HR IV 02/13/25 23:30 02/14/25 01:19 40 MG Ipratropium [place] 1 mg ONCE ONCE N 02/13/25 17:45 02/13/25 18:05 DC 02/13/25 18:05 1 MG Levofloxacin/ Dextrose 100 ml @ 100 mls/hr ONCE ONCE IV 02/13/25 20:45 02/13/25 21:44 DC 02/13/25 21:26 100 MLS/HR Methylprednisolone Sodium Succinate 125 mg ONCE ONCE IV 02/13/25 17:45 02/13/25 18:05 DC 02/13/25 18:00 125 MG Sodium Chloride 500 ml @ 500 mls/hr Q1H ONCE IV 02/13/25 20:45 02/13/25 21:44 DC 02/13/25 21:26 500 MLS/HR Vancomycin HCl 250 ml @ 250 mls/hr ONCE ONCE IV 02/13/25 20:45 02/13/25 21:44 DC 02/13/25 20:45 250 MLS/HR Assessment/Plan Assessment/Plan Assessment and plan Acute on chronic systolic heart failure volume overload due to above possible NSTEMI type 2 Medication nonadherence EKG Magnesium last echo: ejection fraction 15%, repeat echo ordered Lasix 40 mg b.i.d. Spironolactone 25 mg, metoprolol 25 mg Cardiology consult as per primary team primary team to start GDMT when FAVIAN resolves career development consultant consult FAVIAN on CKD, likely due to VMN IV fluids held due to acute HFrEF exacerbation Nephrology consult Follow creatinine levels Avoid nephrotoxic medications COPD, not on exacerbation Follow up with PCP on discharge Multiple drug abuse Current smoker Counseled on the importance of cessation for 13 mins Type 2 diabetes mellitus Follow up with PCP on discharge Target in-hospital blood glucose below 180 Osteoarthritis Follow up with PCP on discharge PUD prophylaxis: not needed DVT prophylaxis: Levonox 40mg. Barriers to discharge: Medical diagnosis and managment in progress. Patient lives with family. Independent for ADL. PT and SW consult as needed. PCP: None Specialist Relevent To Admission: none Case discussed with . Code Status: Full Code. Complex patient care discussion needed. Spend total 33 minutes for bedside assessment, case discussion and management. Plan discussed with: Patient My Orders Orders - SHARRON FAIRCHILD RESIDENT Procedure Category Date Status Time Admit ADMIT 02/13/25 Transmitted 23:13 Allergies JAMES 02/13/25 In Process 23:13 Code Status CODE 02/13/25 Transmitted 23:13 Enoxaparin Sodium PHA 02/14/25 In Process (Lovenox) 10:00 Fall Risk Precautions JAMES 02/13/[address] 23:13 Complete Blood Count LAB 02/14/25 Logged 04:00 Comprehensive LAB 02/14/25 Logged Metabolic Panel 04:00 Cardiac DIET 02/14/25 Transmitted Diet-2gna,Lofat,Lochol Breakfast Echo 2d Mode Cardiac US 02/13/25 Logged DOP 23:13 Condition: Fair JAMES 02/13/25 In Process 23:13 Electrocardigram EKG 02/13/25 Logged 23:22 Pt Request For Service PT 02/13/25 Logged 23:22 *[facility] CONS 02/13/25 Transmitted -[place] 23:22 Communication Order ORDERS 02/13/25 Transmitted 23:22 Furosemide Injection PHA 02/13/25 In Process (Lasix Injection) 23:30 Spironolactone PHA 02/14/25 In Process (Aldactone) 10:00 Metoprolol Tartrate PHA 02/14/25 In Process Tablet (Lopressor Ta 10:00 Consult Care CONS 02/14/25 Transmitted Coordinator Visit Coding STANDARD RES Billing Provider: DAHIANA AGRAWAL MD Date of Service if different f: Feb 13, 2025 Common Visit Codes: [id number] INP/OBS CARE (HIGH) Secondary Visit Codes: [id number] CARE PLAN 30 MINUTES SHARRON FAIRCHILD RESIDENT Feb 14, 2025 01:57
[2025-02-14 02:27] LABS: Urine Protein, UAD Negative (Negative)
[2025-02-14 05:03] LABS: Hematocrit 33.5 % (41.0-53.0); Hemoglobin 11.3 g/dL (13.5-17.5); Mean Corpuscular Hemoglobin 31.0 pg (28.0-32.0); Mean Corpuscular Volume 92.4 fL (80.0-100.0); Nucleated Red Blood Cells % 0.1 %
[2025-02-14 06:00] LABS: Albumin 3.7 g/dL (3.2-4.8); Alkaline Phosphatase 66 U/L (46-116); Anion Gap 13 (5-15); Calcium 9.0 mg/dL (8.7-10.4); Carbon Dioxide 22 mmol/L (20-31); Chloride 102 mmol/L (98-107); Potassium 3.9 mmol/L (3.5-5.1); Sodium 137 mmol/L (136-145); Total Protein 6.8 g/dL (5.7-8.2)
[2025-02-14 06:04] LABS: Alanine Aminotransferase 139 U/L (7-40); Bilirubin, Total 1.9 mg/dL (0.2-1.0); Glucose 176 mg/dL (74-106)
[2025-02-14 06:10] LABS: BUN/Creatinine Ratio 20.6 (10.0-20.0)
[2025-02-14 06:11] LABS: Blood Urea Nitrogen 36 mg/dL (9-23)
[2025-02-14] MEDS: METOPROLOL TARTRATE 25 MG TAB PO SCH (09:09)
[2025-02-14] MEDS: SPIRONOLACTONE 25 MG TAB PO SCH (09:09)
[2025-02-14] MEDS: ENOXAPARIN SOD 40 MG/0.4 ML SYRINGE SC SCH (09:10)
--- NOTE | 2025-02-14 09:35 | DVHPN2 ---
Subjective Admitted for heart failure and edema and shortness of breaths He has a history of CHF with the ejection fraction 15% He is not taking any medications at home Changes from previous H/P or p: Changes Objective Vitals Vital Signs Date Time Temp Pulse Resp B/P (MAP) Pulse Ox O2 Delivery O2 Flow Rate FiO2 02/14/25 09:09 101 110/65 02/14/25 05:00 97.6 19 99 97.6 02/14/25 00:40 Room Air* 0 21 Intake/Output Intake and Output 02/14/25 07:00 Output Total 600 ml Balance -600 ml Output Urine Total 600 ml General Appearance: Alert, Oriented X3, Cooperative, mild distress Lungs: Clear to auscultation Cardiovascular: Regular rate, Normal S1, Normal S2 Abdomen: Normal bowel sounds, Soft, No tenderness Extremities: Other (2+ edema bilaterally in the legs) Medications Current Medications Medications Dose Ordered Sig/Callie Route Start Time Stop Time Status Last Admin Dose Admin Enoxaparin Sodium 40 mg DAILY SC 02/14/25 10:00 02/14/25 09:10 40 MG Furosemide 40 mg Q12HR IV 02/13/25 23:30 02/14/25 09:09 40 MG Spironolactone 25 mg DAILY PO 02/14/25 10:00 02/14/25 09:09 25 MG Metoprolol Tartrate 25 mg DAILY PO 02/14/25 10:00 02/14/25 09:09 25 MG Laboratory Results Laboratory Tests 02/14/25 04:38 Chemistry Test 02/13/25 18:09 02/13/25 21:30 02/14/25 04:38 Calcium Level 9.7 mg/dL (8.7-10.4) 9.0 mg/dL (8.7-10.4) Magnesium Level 2.0 mg/dL (1.6-2.6) Albumin 3.7 g/dL (3.2-4.8) Total Protein 6.8 g/dL (5.7-8.2) Lipid panel Test 02/13/25 21:30 Cholesterol Level 107 mg/dL (< 200) HDL Cholesterol 31 mg/dL (40-59) L Triglycerides Level 108 mg/dL (< 150) Cardiac Markers Test 02/13/25 18:09 B-Type Natriuretic Peptide 1156.22 pg/mL (0-100) LFT Test 02/14/25 04:38 Alanine Aminotransferase (ALT) 139 U/L (7-40) H Alkaline Phosphatase 66 U/L (46-116) Aspartate Amino Transferase (AST) 151 U/L (13-40) H Total Bilirubin 1.9 mg/dL (0.2-1.0) H HgA1c, TSH Test 02/13/25 18:09 02/13/25 21:30 Hemoglobin A1c 5.8 % A1C (<5.7) H Thyroid Stimulating Hormone (TSH) 2.82 uIU/mL (0.55-4.78) Urinalysis Test 02/14/25 01:30 Urine Color Light-yellow (Yellow) Urine Clarity Clear (Clear) Urine pH 5.0 (5.0-9.0) Urine Specific [place] 1.012 (1.001-1.035) Urine Protein Negative (Negative) Urine Ketones Negative (Negative) Urine Blood Negative /uL (Negative) Urine Nitrite Negative (Negative) Urine Bilirubin Negative (Negative) Urine Urobilinogen Normal mg/dL (Negative) Urine Leukocyte Esterase Negative /uL (Negative) Urine RBC None seen /hpf (0 - 3) Urine Microscopic WBC 2 /HPF (0-3) Urine Squamous Epithelial Cells Few /hpf (<5) Urine Bacteria None seen /hpf (None Seen) Urine Hyaline Casts Few /lpf (0 - 2) Urine Mucus Few (None Seen) Urine Glucose Normal mg/dL (Normal) Assessment/Plan Assessment/Plan Acute hypoxic respiratory failure Acute on chronic congestive heart failure with reduced ejection fraction COPD Type 2 diabetes CKD NSTEMI type 2 Transaminitis Plan IV Lasix, Lower the dose to 20 mg twice a day Hypotension: Lower metoprolol to 12.5 mg twice a day, Discontinue Aldactone Echocardiogram Cardiology consult Nephrology consult Aspirin Lovenox Full code Monitor closely Plan discussed with: Patient Date of Service: Feb 14, 2025 Billing Provider: PRIMO HARPER MD Common Visit Codes: NOT BILLABLE PRIMO HARPER MD Feb 14, 2025 09:35
[2025-02-14] MEDS ORDERED: ACETAMINOPHEN 325 MG TAB PO PRN (09:45)
[2025-02-14] MEDS ORDERED: ONDANSETRON HCL 4 MG/2 ML VIAL IV PRN (09:45)
--- NOTE | 2025-02-14 10:16 | ECG ---
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 : 1955 Requested By: SHARRON FAIRCHILD Order Number: [id number] Reading MD: Gera Rico Measurements Intervals [place] Rate: 101 P: 48 ID: [id number] QRS: -58 QRSD: 153 T: 119 QT: 397 QTc: 515 Interpretive Statements Sinus tachycardia Atrial premature complexes Nonspecific IVCD with LAD LVH with secondary repolarization abnormality Inferior infarct, acute (RCA) Anterior Q waves, possibly due to LVH Lateral leads are also involved Probable RV involvement, suggest recording right precordial leads 2 Electronically Signed On 02-16-2025 8:20:47 PST by Gera Rico Please click the below link to view image of tracing.
[2025-02-14] MEDS: ASPirin-EC 81 mg tab PO SCH (13:31)
--- NOTE | 2025-02-14 16:18 | DVHSR ---
APPROVED REPORT EXAM: LIMITED Two-dimensional and M-mode echocardiogram. Blood Pressure: 109/72 mmHg INDICATION To rule out structural heart disease Limited repeat to eval ef RISK FACTORS Height: 6'2", Weight: 220 DIMENSIONS LVDd 7.3 (3.8-5.7cm) LA (2D) (1.9-4.0cm) Aortic Root (2.0-3.7cm) LVDs 7.0 (2.5-4.0cm) LA (MM) (1.9-4.0cm) Aortic Cusp Exc (1.5-2.0cm) EF (%) 10.0 (55-70%) Rt. Atrium (1.9-4.0cm) Asc. Aorta cm IVSd 1.2 (0.7-1.1cm) RV (D) (1.8-2.4cm) PWd 1.0 (0.7-1.1cm) Mitral Valve Mitral Mitral Stenosis E/A ratio 0.0 2D MVA cm2 Other Information Quality : Technically Limited Rhythm : Technically limited study due to limited repeat to eval ef. Conclusion severe dilated LV lvef is 10-15% end stage HF RV dysfunction biatiral enlargement limited study no valve assessment
[2025-02-14 16:50] LABS: Cannabinoid Screen, Urine Pos (NEGATIVE); Opiate Scree,Urine Neg (NEGATIVE); Phencyclidine Screen, Urine Neg (NEGATIVE)
[2025-02-14 16:53] LABS: Amphetamine Screen, Urine Pos (NEGATIVE); Barbiturate Scree,Urine Neg (NEGATIVE); Benzodiazephine Screen, Urine Neg (NEGATIVE); Cocaine Screen, Urine Neg (NEGATIVE)
--- NOTE | 2025-02-14 17:21 | DVHINCON2 ---
Date Seen: Feb 14, [address] Buchanan Reason for Consultation CHF History of Present Illness Patient is a 69-year-old male presented to the hospital with a chief complaint of shortness of breaths and cough for 1 week. Patient has a history of heart failure with reduced ejection fraction, LVEF 15% with a dilated cardiomyopathy, coronary angiogram in August 2024 showed dilated nonischemic cardiomyopathy with n ormal coronary arteries. Patient is noncompliant with his guideline directed medical therapy for heart failure and reports active tobacco smoking and methamphetamine use. Patient denied any chest pain. ECG in the hospital showed sinus rhythm with left axis deviation, no acute ST or T-wave changes. Troponins trended flat 147->143->152. Patient denied any fever, chills, nausea, vomiting, phlegm, diarrhea, abdominal pain, dysuria. Past Medical History Heart failure with a reduced ejection fraction, dilated nonischemic cardiomyopathy Past Surgical History Coronary angiogram in August 2024 Family History: Diabetes mellitus G8 MOTHER FH: lung cancer G8 FATHER, , Cause: Lung cancer Pancreatitis G8 SISTER Family History Not significant Social History Patient has a 55 pack year smoking history, actively smoking, active methamphetamine use, denies any alcohol use Allergies: Coded Allergies: Penicillins (Verified Allergy, Unknown, 04/10/21) Home Meds Active Scripts Sacubitril-Valsartan (Entresto 24-26 mg) 1 Tab Tab, 0.5 TAB PO BID for 30 Days, #30 TAB Prov:PRIMO BUCHANAN MD 09/28/24 Spironolactone (Aldactone) 25 Mg Tab, 25 MG PO DAILY for 30 Days, #30 TAB Prov:PRIMO BUCHANAN MD 09/28/24 Metoprolol Succinate (Toprol Xl) 25 Mg Tab, 1 TAB PO DAILY, #30 TAB 5 Refills Prov:PRIMO BUCHANAN MD 09/28/24 Empagliflozin (Jardiance) 10 Mg Tab, 10 MG PO DAILY for 30 Days, #30 TAB Prov:PRIMO BUCHANAN MD 09/28/24 Methylprednisolone (Medrol Dosepak) 4 Mg Franck, 4 MG PO UD, #21 TAB UAD Prov:PRIMO BUCHANAN MD 09/28/24 Tamsulosin Hcl (Flomax) 0.4 Mg Cap, 0.4 MG PO QPM for 30 Days, #30 CAP Prov:KAMALJIT ALMONTE MD 04/14/21 Oxycodone W/ Acetaminophen (Percocet 5/325MG) 1 Tab Tb, 1 TAB PO BID for 7 Days, #14 TAB 0 Refills Prov:KAMALJIT ALMONTE MD 04/14/21 Current Medications Current Medications Medications (Trade) Dose Ordered Sig/Callie Route PRN Reason Start Time Stop Time Status Last Admin Enoxaparin Sodium (Lovenox) 40 mg DAILY SC 02/14/25 10:00 02/14/25 09:10 Furosemide (Lasix Injection) 40 mg Q12HR IV 02/13/25 23:30 02/14/25 09:31 DC 02/14/25 09:09 Spironolactone (Aldactone) 25 mg DAILY PO 02/14/25 10:00 02/14/25 09:32 DC 02/14/25 09:09 Metoprolol Tartrate (Lopressor Tablet) 25 mg DAILY PO 02/14/25 10:00 02/14/25 09:32 DC 02/14/25 09:09 Ondansetron HCl (Zofran) 4 mg Q4HPRN PRN IV NAUSEA / VOMITING 02/14/25 09:45 Acetaminophen (Tylenol Tablet) 650 mg Q6HP PRN PO MILD PAIN (1-3 PAIN SCALE) 02/14/25 09:45 Aspirin (Ecotrin Enteric Coated Tablet) 81 mg DAILY PO 02/14/25 10:00 02/14/25 13:31 Furosemide (Lasix Injection) 20 mg BIDD IV 02/14/25 18:00 Metoprolol Tartrate (Lopressor Tablet) 12.5 mg BID PO 02/14/25 22:00 Review of Systems Reports shortness of breath, bouts of dry cough Denies chest pain, palpitations, dizziness Vital Signs Vital Signs Date Time Temp Pulse Resp B/P (MAP) Pulse Ox O2 Delivery O2 Flow Rate FiO2 02/14/25 16:43 99.8 106 20 97/55 (69) 96 99.8 02/14/25 08:00 Room Air* 0 21 Physical Exam Skin - Patients skin is warm and dry. HEENT - normocephalic, atraumatic, moist mucous membranes, no scleral icterus, no conjunctival pallor. Neck - full ROM, no LAD, elevated JVP with positive hepatojugular reflex Pulmonary - B/L clear breath sounds without any wheezing, no rales cardiovascular - regular S1,S2 heard, S3 heard. peripheral pulses normal radial 2+, pedal 2+, minimal bilateral lower extremity edema GI - soft, nontender abdomen. no hepatospleenomegaly. Bowel sounds normoactive Neurological - Patient is A/O X 4 . Bilateral upper extremity strength 5/5, bilateral lower extremity strength 5/5, no facial droop, normal speech, no tremor, no sensory deficiets. Labs/Diagnostic Data Labs Test 02/14/25 04:38 02/14/25 01:30 02/13/25 21:30 02/13/25 19:57 Range/Units White Blood Count 6.4 4.4-10.8 10^3/uL Red Blood Count 3.63 L 4.5-5.90 10^6/uL Hemoglobin 11.3 L 13.5-17.5 g/dL Hematocrit 33.5 #L 41.0-53.0 % Mean Corpuscular Volume 92.4 80.0-100.0 fL Mean Corpuscular Hemoglobin 31.0 28.0-32.0 pg Mean Corpuscular Hemoglobin Concent 33.6 32.0-36.0 g/dL Red Cell Distribution Width 15.3 H 11.8-14.3 % Platelet Count 152 140-450 10^3/uL Mean Platelet Volume 8.5 6.9-10.8 fL Neutrophils (%) (Auto) 93.5 H 37.0-80.0 % Lymphocytes (%) (Auto) 4.7 L 10.0-50.0 % Monocytes (%) (Auto) 1.8 0.0-12.0 % Eosinophils (%) (Auto) 0.0 0.0-7.0 % Basophils (%) (Auto) 0.0 0.0-2.0 % Neutrophils # (Auto) 6.0 1.6-8.6 10 ^3/uL Lymphocytes # (Auto) 0.3 L 0.4-5.4 10 ^3/uL Monocytes # (Auto) 0.1 0-1.3 10 ^3/uL Eosinophils # (Auto) 0 0-0.8 10 ^3/uL Basophils # (Auto) 0 0-0.2 10 ^3/uL Nucleated Red Blood Cells 0.1 % Sodium Level 137 136-145 mmol/L Potassium Level 3.9 3.5-5.1 mmol/L Chloride Level 102 98-107 mmol/L Carbon Dioxide Level 22 20-31 mmol/L Anion Gap 13 5-15 Blood Urea Nitrogen 36 H 9-23 mg/dL Creatinine 1.75 H 0.700-1.30 mg/dL Glomerular Filtration Rate Calc 42 >90 mL/min BUN/Creatinine Ratio 20.6 H 10.0-20.0 Serum Glucose 176 H 74-106 mg/dL Calcium Level 9.0 8.7-10.4 mg/dL Total Bilirubin 1.9 H 0.2-1.0 mg/dL Aspartate Amino Transferase (AST) 151 H 13-40 U/L Alanine Aminotransferase (ALT) 139 H 7-40 U/L Alkaline Phosphatase 66 46-116 U/L Total Protein 6.8 5.7-8.2 g/dL Albumin 3.7 3.2-4.8 g/dL Urine Color Light-yellow Yellow Urine Clarity Clear Clear Urine pH 5.0 5.0-9.0 Urine Specific [place] 1.012 1.001-1.035 Urine Protein Negative Negative Urine Ketones Negative Negative Urine Blood Negative Negative /uL Urine Nitrite Negative Negative Urine Bilirubin Negative Negative Urine Urobilinogen Normal Negative mg/dL Urine Leukocyte Esterase Negative Negative /uL Urine RBC None seen 0 - 3 /hpf Urine Microscopic WBC 2 0-3 /HPF Urine Squamous Epithelial Cells Few <5 /hpf Urine Bacteria None seen None Seen /hpf Urine Hyaline Casts Few 0 - 2 /lpf Urine Mucus Few None Seen Urine Glucose Normal Normal mg/dL Urine Opiates Screen Neg NEGATIVE Urine Fentanyl Screen Neg NEGATIVE Urine Barbiturates Screen Neg NEGATIVE Urine Phencyclidine Screen Neg NEGATIVE Urine Amphetamines Screen Pos NEGATIVE Urine Benzodiazepines Screen Neg NEGATIVE Urine Cocaine Screen Neg NEGATIVE Urine Cannabinoids Screen Pos NEGATIVE Magnesium Level 2.0 1.6-2.6 mg/dL Troponin I High Sensitivity 152 *H </=54 ng/L Triglycerides Level 108 < 150 mg/dL Cholesterol Level 107 < 200 mg/dL LDL Cholesterol 61 < 100 mg/dL HDL Cholesterol 31 L 40-59 mg/dL Thyroid Stimulating Hormone (TSH) 2.82 0.55-4.78 uIU/mL Plasma/Serum Blood Alcohol 4.1 <10 mg/dL Lactic Acid Level 4.5 *H 0.4-2.0 mmol/L Test 02/13/25 18:09 02/13/25 18:06 Range/Units Hemoglobin A1c 5.8 H <5.7 % A1C B-Type Natriuretic Peptide 1156.22 0-100 pg/mL Influenza Type A Antigen Negative Negative Influenza Type B Antigen Negative Negative SARS-CoV-2 Antigen (Rapid) Negative NEGATIVE Assessment Acute on chronic heart failure with reduced ejection fraction Dilated nonischemic cardiomyopathy h/o pulmonary hypertension NSTEMI likely type 2 FAVIAN on CKD likely prerenal Hyperbilirubinemia with transaminitis Plan/Recommendation - diuresis for euvolemia, strict I&Os - recommend resuming GDMT as tolerated with Entresto, Jardiance, metoprolol succinate, spironolactone - patient needs refill for medications on discharge - echocardiogram showed LVEF 10-15% with a end-stage heart failure, RV dysfunction, biatrial enlargement - counseled on cessation of methamphetamine and tobacco use Further cardiology workup required Thank you for Consulting Goals of care discussed with the patient for over [address] Angelo Plan discussed with: Patient, Other (RN) NYHA Physical activity limitations: Class4(Severe)discomfort Date of Service: Feb 14, 2025 Billing Provider: TOÑA ANGELO MD Cardiology Common Codes: [id number] INP/OBS CARE (High) DEL MACKENZIE RESIDENT Feb 14, 2025 17:21
[2025-02-14] MEDS: FUROSEMIDE 20 MG/2 ML VIAL IV SCH (19:00)
[2025-02-14] MEDS: SACUBITRIL-VALSARTAN 24mg/26mg TAB PO SCH (21:04)
[2025-02-14] MEDS ORDERED: METOPROLOL SUCCINATE XL 50 MG TAB PO SCH (22:00)
[2025-02-14] MEDS ORDERED: METOPROLOL TARTRATE 25 MG TAB PO SCH (22:00)
[2025-02-15] VITALS (7 sets, daily range): BP systolic 91–96; BP diastolic 48–69; PULSE 62–100; RESP 17–20; TEMP 97.8–98.4; O2SAT 92–98
[2025-02-15 06:29] LABS: Alkaline Phosphatase 71 U/L (46-116); Anion Gap 9 (5-15); BUN/Creatinine Ratio 25.4 (10.0-20.0); Calcium 9.5 mg/dL (8.7-10.4); Carbon Dioxide 27 mmol/L (20-31); Chloride 102 mmol/L (98-107); Magnesium 2.3 mg/dL (1.6-2.6); Potassium 4.3 mmol/L (3.5-5.1); Sodium 138 mmol/L (136-145); Total Protein 6.5 g/dL (5.7-8.2)
[2025-02-15 06:30] LABS: Albumin 3.5 g/dL (3.2-4.8); Bilirubin, Total 1.2 mg/dL (0.2-1.0)
[2025-02-15 06:36] LABS: Alanine Aminotransferase 129 U/L (7-40); Blood Urea Nitrogen 44 mg/dL (9-23); Glucose 115 mg/dL (74-106)
[2025-02-15] MEDS: METOPROLOL SUCCINATE XL 50 MG TAB PO SCH (09:42)
--- NOTE | 2025-02-15 14:31 | DVHPN2 ---
Subjective Better On room air Still has some edema in his legs Changes from previous H/P or p: Changes Objective Vitals Vital Signs Date Time Temp Pulse Resp B/P (MAP) Pulse Ox O2 Delivery O2 Flow Rate FiO2 02/15/25 13:00 97.8 63 20 91/69 (76) 96 97.8 02/15/25 08:00 Room Air* 0 21 Intake/Output Intake and Output 02/15/25 07:00 Intake Total 1450 ml Balance 1450 ml Intake Oral 1450 ml # Voids 3 General Appearance: Alert, Oriented X3, Cooperative, mild distress Lungs: Clear to auscultation Cardiovascular: Regular rate, Normal S1, Normal S2 Abdomen: Normal bowel sounds, Soft, No tenderness Extremities: Other (2+ edema bilaterally in the legs) Medications Current Medications Medications Dose Ordered Sig/Callie Route Start Time Stop Time Status Last Admin Dose Admin Enoxaparin Sodium 40 mg DAILY SC 02/14/25 10:00 02/15/25 09:41 40 MG Ondansetron HCl 4 mg Q4HPRN PRN IV 02/14/25 09:45 Acetaminophen 650 mg Q6HP PRN PO 02/14/25 09:45 Aspirin 81 mg DAILY PO 02/14/25 10:00 02/15/25 09:41 81 MG Furosemide 20 mg BIDD IV 02/14/25 18:00 02/14/25 19:00 20 MG Sacubitril/ Valsartan 0.5 tab BID PO 02/14/25 22:00 02/15/25 09:41 0.5 TAB Metoprolol Succinate 25 mg DAILY PO 02/15/25 10:00 Laboratory Results Laboratory Tests 02/14/25 04:38 02/15/25 05:21 Chemistry Test 02/15/25 05:21 Albumin 3.5 g/dL (3.2-4.8) Calcium Level 9.5 mg/dL (8.7-10.4) Magnesium Level 2.3 mg/dL (1.6-2.6) Total Protein 6.5 g/dL (5.7-8.2) LFT Test 02/15/25 05:21 Alanine Aminotransferase (ALT) 129 U/L (7-40) H Alkaline Phosphatase 71 U/L (46-116) Aspartate Amino Transferase (AST) 93 U/L (13-40) H Total Bilirubin 1.2 mg/dL (0.2-1.0) H Urinalysis Test 02/14/25 01:30 Urine Color Light-yellow (Yellow) Urine Clarity Clear (Clear) Urine pH 5.0 (5.0-9.0) Urine Specific [place] 1.012 (1.001-1.035) Urine Protein Negative (Negative) Urine Ketones Negative (Negative) Urine Blood Negative /uL (Negative) Urine Nitrite Negative (Negative) Urine Bilirubin Negative (Negative) Urine Urobilinogen Normal mg/dL (Negative) Urine Leukocyte Esterase Negative /uL (Negative) Urine RBC None seen /hpf (0 - 3) Urine Microscopic WBC 2 /HPF (0-3) Urine Squamous Epithelial Cells Few /hpf (<5) Urine Bacteria None seen /hpf (None Seen) Urine Hyaline Casts Few /lpf (0 - 2) Urine Mucus Few (None Seen) Urine Glucose Normal mg/dL (Normal) Microbiology Microbiology Date/Time Source Procedure Growth Status 02/13/25 18:09 Blood Blood Culture - Preliminary NO GROWTH AFTER 24 HOURS OF INCUBATION. Resulted Assessment/Plan Assessment/Plan Acute hypoxic respiratory failure Acute on chronic congestive heart failure with reduced ejection fraction COPD Type 2 diabetes CKD NSTEMI type 2 Transaminitis Plan IV Lasix, Lower the dose to 20 mg twice a day Hypotension: Lower metoprolol to 12.5 mg twice a day, Discontinue Aldactone Echocardiogram Cardiology consult Nephrology consult Aspirin Lovenox Full code Monitor closely 02/15/2025: Continue Lasix Entresto Beta fredi Aspirin Lovenox Monitor closely Physical therapy Plan discussed with: Patient My Orders Orders - PRIMO HARPER MD Procedure Category Date Status Time * Cardiology Consult CONS 02/14/25 Transmitted 16:00 Date of Service: Feb 15, 2025 Billing Provider: PRIMO HARPER MD Common Visit Codes: NOT BILLABLE PRIMO HARPER MD Feb 15, 2025 14:31
--- NOTE | 2025-02-15 15:12 | DVHINCON2 ---
Date of service: Feb 15, 2025 Referring Physician hospitalist Reason for Consultation FAVIAN History of Present Illness 69-year-old male with past medical history CHF , COPD, diabetes mellitus, osteoarthritis, substance abuse presented with complaints of shortness of breath and cough since 3 days. he is admitted for decompensated HF. EF 10-15%. Drug screen is positive for methamphetamine. He tells me he has never been on diuretics before nephrology called for elevated cr. previous hospitalization in August GFR was 61% Allergies: Coded Allergies: Penicillins (Verified Allergy, Unknown, 04/10/21) Home Meds Active Scripts Sacubitril-Valsartan (Entresto 24-26 mg) 1 Tab Tab, 0.5 TAB PO BID for 30 Days, #30 TAB Prov:PRIMO HARPER MD 09/28/24 Spironolactone (Aldactone) 25 Mg Tab, 25 MG PO DAILY for 30 Days, #30 TAB Prov:PRIMO HARPER MD 09/28/24 Metoprolol Succinate (Toprol Xl) 25 Mg Tab, 1 TAB PO DAILY, #30 TAB 5 Refills Prov:PRIMO HARPER MD 09/28/24 Empagliflozin (Jardiance) 10 Mg Tab, 10 MG PO DAILY for 30 Days, #30 TAB Prov:PRIMO HARPER MD 09/28/24 Methylprednisolone (Medrol Dosepak) 4 Mg Franck, 4 MG PO UD, #21 TAB UAD Prov:PRIMO HARPER MD 09/28/24 Tamsulosin Hcl (Flomax) 0.4 Mg Cap, 0.4 MG PO QPM for 30 Days, #30 CAP Prov:KAMALJIT ALMONTE MD 04/14/21 Oxycodone W/ Acetaminophen (Percocet 5/325MG) 1 Tab Tb, 1 TAB PO BID for 7 Days, #14 TAB 0 Refills Prov:KAMALJIT ALMONTE MD 04/14/21 Current Medications Current Medications Medications (Trade) Dose Ordered Sig/Callie Route PRN Reason Start Time Stop Time Status Last Admin Furosemide (Lasix Injection) 20 mg BIDD IV 02/14/25 18:00 02/14/25 19:00 Metoprolol Tartrate (Lopressor Tablet) 12.5 mg BID PO 02/14/25 22:00 02/14/25 17:23 DC Sacubitril/ Valsartan (Entresto 24-26 Mg tab) 0.5 tab BID PO 02/14/25 22:00 02/15/25 09:41 Metoprolol Succinate (Toprol Xl) 12.5 mg BID PO 02/14/25 22:00 02/14/25 17:25 DC Metoprolol Succinate (Toprol Xl) 25 mg DAILY PO 02/15/25 10:00 Family History: Diabetes mellitus G8 MOTHER FH: lung cancer G8 FATHER, , Cause: Lung cancer Pancreatitis G8 SISTER Review of Systems sob H&P Exam Vital Signs/I&O Vital Sign Date Time Temp Pulse Resp B/P (MAP) Pulse Ox O2 Delivery O2 Flow Rate FiO2 02/15/25 13:00 97.8 63 20 91/69 (76) 96 97.8 02/15/25 08:00 Room Air* 0 21 Intake and Output 02/14/25 02/15/25 19:00 07:00 Intake Total 1150 ml 300 ml Balance 1150 ml 300 ml Intake Oral 1150 ml 300 ml # Voids 3 Physical Exam frail , chronically ill appearing male nad trace peripheral edema abd soft, nt, nd + JVD Labs/Diagnostic Data Labs/Diagnostic Data Laboratory Tests Test 02/15/25 05:21 02/14/25 04:38 02/14/25 01:30 02/13/25 21:30 Range/Units Sodium Level 138 137 136-145 mmol/L Potassium Level 4.3 3.9 3.5-5.1 mmol/L Chloride Level 102 102 98-107 mmol/L Carbon Dioxide Level 27 22 20-31 mmol/L Anion Gap 9 13 5-15 Blood Urea Nitrogen 44 H 36 H 9-23 mg/dL Creatinine 1.73 H 1.75 H 0.700-1.30 mg/dL Glomerular Filtration Rate Calc 42 42 >90 mL/min BUN/Creatinine Ratio 25.4 H 20.6 H 10.0-20.0 Serum Glucose 115 H 176 H 74-106 mg/dL Calcium Level 9.5 9.0 8.7-10.4 mg/dL Magnesium Level 2.3 2.0 1.6-2.6 mg/dL Total Bilirubin 1.2 H 1.9 H 0.2-1.0 mg/dL Aspartate Amino Transferase (AST) 93 H 151 H 13-40 U/L Alanine Aminotransferase (ALT) 129 H 139 H 7-40 U/L Alkaline Phosphatase 71 66 46-116 U/L Total Protein 6.5 6.8 5.7-8.2 g/dL Albumin 3.5 3.7 3.2-4.8 g/dL White Blood Count 6.4 4.4-10.8 10^3/uL Red Blood Count 3.63 L 4.5-5.90 10^6/uL Hemoglobin 11.3 L 13.5-17.5 g/dL Hematocrit 33.5 #L 41.0-53.0 % Mean Corpuscular Volume 92.4 80.0-100.0 fL Mean Corpuscular Hemoglobin 31.0 28.0-32.0 pg Mean Corpuscular Hemoglobin Concent 33.6 32.0-36.0 g/dL Red Cell Distribution Width 15.3 H 11.8-14.3 % Platelet Count 152 140-450 10^3/uL Mean Platelet Volume 8.5 6.9-10.8 fL Neutrophils (%) (Auto) 93.5 H 37.0-80.0 % Lymphocytes (%) (Auto) 4.7 L 10.0-50.0 % Monocytes (%) (Auto) 1.8 0.0-12.0 % Eosinophils (%) (Auto) 0.0 0.0-7.0 % Basophils (%) (Auto) 0.0 0.0-2.0 % Neutrophils # (Auto) 6.0 1.6-8.6 10 ^3/uL Lymphocytes # (Auto) 0.3 L 0.4-5.4 10 ^3/uL Monocytes # (Auto) 0.1 0-1.3 10 ^3/uL Eosinophils # (Auto) 0 0-0.8 10 ^3/uL Basophils # (Auto) 0 0-0.2 10 ^3/uL Nucleated Red Blood Cells 0.1 % Urine Color Light-yellow Yellow Urine Clarity Clear Clear Urine pH 5.0 5.0-9.0 Urine Specific [place] 1.012 1.001-1.035 Urine Protein Negative Negative Urine Ketones Negative Negative Urine Blood Negative Negative /uL Urine Nitrite Negative Negative Urine Bilirubin Negative Negative Urine Urobilinogen Normal Negative mg/dL Urine Leukocyte Esterase Negative Negative /uL Urine RBC None seen 0 - 3 /hpf Urine Microscopic WBC 2 0-3 /HPF Urine Squamous Epithelial Cells Few <5 /hpf Urine Bacteria None seen None Seen /hpf Urine Hyaline Casts Few 0 - 2 /lpf Urine Mucus Few None Seen Urine Glucose Normal Normal mg/dL Urine Opiates Screen Neg NEGATIVE Urine Fentanyl Screen Neg NEGATIVE Urine Barbiturates Screen Neg NEGATIVE Urine Phencyclidine Screen Neg NEGATIVE Urine Amphetamines Screen Pos NEGATIVE Urine Benzodiazepines Screen Neg NEGATIVE Urine Cocaine Screen Neg NEGATIVE Urine Cannabinoids Screen Pos NEGATIVE Troponin I High Sensitivity 152 *H </=54 ng/L Triglycerides Level 108 < 150 mg/dL Cholesterol Level 107 < 200 mg/dL LDL Cholesterol 61 < 100 mg/dL HDL Cholesterol 31 L 40-59 mg/dL Thyroid Stimulating Hormone (TSH) 2.82 0.55-4.78 uIU/mL Plasma/Serum Blood Alcohol 4.1 <10 mg/dL Test 02/13/25 19:57 02/13/25 19:05 02/13/25 18:09 02/13/25 18:06 Range/Units Lactic Acid Level 4.5 *H 3.0 *H 0.4-2.0 mmol/L Troponin I High Sensitivity 143 *H 147 *H </=54 ng/L White Blood Count 8.5 4.4-10.8 10^3/uL Red Blood Count 3.98 L 4.5-5.90 10^6/uL Hemoglobin 12.4 L 13.5-17.5 g/dL Hematocrit 37.5 L 41.0-53.0 % Mean Corpuscular Volume 94.2 80.0-100.0 fL Mean Corpuscular Hemoglobin 31.0 28.0-32.0 pg Mean Corpuscular Hemoglobin Concent 32.9 32.0-36.0 g/dL Red Cell Distribution Width 16.4 H 11.8-14.3 % Platelet Count 208 140-450 10^3/uL Mean Platelet Volume 9.3 6.9-10.8 fL Neutrophils (%) (Auto) 83.2 H 37.0-80.0 % Lymphocytes (%) (Auto) 10.5 10.0-50.0 % Monocytes (%) (Auto) 5.6 0.0-12.0 % Eosinophils (%) (Auto) 0.0 0.0-7.0 % Basophils (%) (Auto) 0.7 0.0-2.0 % Neutrophils # (Auto) 7.1 1.6-8.6 10 ^3/uL Lymphocytes # (Auto) 0.9 0.4-5.4 10 ^3/uL Monocytes # (Auto) 0.5 0-1.3 10 ^3/uL Eosinophils # (Auto) 0 0-0.8 10 ^3/uL Basophils # (Auto) 0.1 0-0.2 10 ^3/uL Nucleated Red Blood Cells 0.2 % Sodium Level 136 136-145 mmol/L Potassium Level 4.9 3.5-5.1 mmol/L Chloride Level 104 98-107 mmol/L Carbon Dioxide Level 22 20-31 mmol/L Anion Gap 10 5-15 Blood Urea Nitrogen 38 H 9-23 mg/dL Creatinine 1.76 H 0.700-1.30 mg/dL Glomerular Filtration Rate Calc 41 >90 mL/min BUN/Creatinine Ratio 21.6 H 10.0-20.0 Serum Glucose 125 H 74-106 mg/dL Hemoglobin A1c 5.8 H <5.7 % A1C Calcium Level 9.7 8.7-10.4 mg/dL B-Type Natriuretic Peptide 1156.22 0-100 pg/mL Influenza Type A Antigen Negative Negative Influenza Type B Antigen Negative Negative SARS-CoV-2 Antigen (Rapid) Negative NEGATIVE Assessment Acute kidney injury hemodynamic ckd II systolic HF decompensated EF 10%, 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 rec new US kidney bladder strict I/O Plan discussed with: Patient BRYSON SCHMIDT MD Feb 15, 2025 15:12
--- NOTE | 2025-02-15 16:17 | DVH ---
CLINICAL HISTORY: gabi TECHNIQUE: Complete ultrasound exam of the kidneys and bladder was performed. COMPARISON: None FINDINGS: The right kidney has normal echogenicity and measures 10.6 cm. There is a 2.5 cm upper pole cyst. There is a 11 mm linear echogenic lesion of the mid kidney. There is no hydronephrosis. The left kidney has normal echogenicity and measures 11.1 cm. There is no focal parenchymal abnormality or evidence for stone. There is no hydronephrosis. The bladder is grossly unremarkable. IMPRESSION: 11 mm linear echogenic lesion within the right kidney, which may represent a nonobstructing renal calculus or vascular calcification.
[2025-02-16 01:00] VITALS: BP 101/61; PULSE 104; RESP 18; TEMP 98.4; O2SAT 95
[2025-02-16 05:00] VITALS: BP 97/72; PULSE 104; RESP 19; TEMP 98.1; O2SAT 96
[2025-02-16 06:02] LABS: Chloride 105 mmol/L (98-107); Potassium 4.6 mmol/L (3.5-5.1); Sodium 138 mmol/L (136-145)
[2025-02-16 06:03] LABS: Anion Gap 7 (5-15); Carbon Dioxide 26 mmol/L (20-31)
[2025-02-16 06:04] LABS: Calcium 9.1 mg/dL (8.7-10.4)
[2025-02-16 06:09] LABS: BUN/Creatinine Ratio 27.0 (10.0-20.0); Glucose 105 mg/dL (74-106)
[2025-02-16 06:13] LABS: Blood Urea Nitrogen 37 mg/dL (9-23)
[2025-02-16 08:00] VITALS: PULSE 89; RESP 16; O2SAT 99
[2025-02-16 08:39] VITALS: BP 97/65; PULSE 89; RESP 16; TEMP 98; O2SAT 99
--- NOTE | 2025-02-16 09:58 | DVHPN2 ---
Subjective Better No edema On room air Blood pressure on the low side Changes from previous H/P or p: Changes Objective Vitals Vital Signs Date Time Temp Pulse Resp B/P (MAP) Pulse Ox O2 Delivery O2 Flow Rate FiO2 02/16/25 09:17 89 97/65 02/16/25 08:39 98.0 16 99 98.0 02/15/25 20:00 Room Air* 0 21 Intake/Output Intake and Output 02/16/25 07:00 Intake Total 775 ml Output Total 2 ml Balance 773 ml Intake Oral 775 ml Output Urine Total 2 ml # Voids 3 # Bowel Movements 1 General Appearance: Alert, Oriented X3, Cooperative, mild distress Lungs: Clear to auscultation Cardiovascular: Regular rate, Normal S1, Normal S2 Abdomen: Normal bowel sounds, Soft, No tenderness Extremities: Other (2+ edema bilaterally in the legs) Medications Current Medications Medications Dose Ordered Sig/Callie Route Start Time Stop Time Status Last Admin Dose Admin Enoxaparin Sodium 40 mg DAILY SC 02/14/25 10:00 02/16/25 09:33 40 MG Ondansetron HCl 4 mg Q4HPRN PRN IV 02/14/25 09:45 Acetaminophen 650 mg Q6HP PRN PO 02/14/25 09:45 Aspirin 81 mg DAILY PO 02/14/25 10:00 02/16/25 09:34 81 MG Furosemide 20 mg BIDD IV 02/14/25 18:00 02/14/25 19:00 20 MG Sacubitril/ Valsartan 0.5 tab BID PO 02/14/25 22:00 02/15/25 09:41 0.5 TAB Metoprolol Succinate 25 mg DAILY PO 02/15/25 10:00 Laboratory Results Laboratory Tests 02/14/25 04:38 02/16/25 05:17 Chemistry Test 02/16/25 05:17 Calcium Level 9.1 mg/dL (8.7-10.4) Urinalysis Test 02/14/25 01:30 Urine Color Light-yellow (Yellow) Urine Clarity Clear (Clear) Urine pH 5.0 (5.0-9.0) Urine Specific [place] 1.012 (1.001-1.035) Urine Protein Negative (Negative) Urine Ketones Negative (Negative) Urine Blood Negative /uL (Negative) Urine Nitrite Negative (Negative) Urine Bilirubin Negative (Negative) Urine Urobilinogen Normal mg/dL (Negative) Urine Leukocyte Esterase Negative /uL (Negative) Urine RBC None seen /hpf (0 - 3) Urine Microscopic WBC 2 /HPF (0-3) Urine Squamous Epithelial Cells Few /hpf (<5) Urine Bacteria None seen /hpf (None Seen) Urine Hyaline Casts Few /lpf (0 - 2) Urine Mucus Few (None Seen) Urine Glucose Normal mg/dL (Normal) Microbiology Microbiology Date/Time Source Procedure Growth Status 02/13/25 18:09 Blood Blood Culture - Preliminary NO GROWTH AFTER 48 HOURS OF INCUBATION. Resulted Assessment/Plan Assessment/Plan Acute hypoxic respiratory failure Acute on chronic congestive heart failure with reduced ejection fraction COPD Type 2 diabetes CKD NSTEMI type 2 Transaminitis Plan IV Lasix, Lower the dose to 20 mg twice a day Hypotension: Lower metoprolol to 12.5 mg twice a day, Discontinue Aldactone Echocardiogram Cardiology consult Nephrology consult Aspirin Lovenox Full code Monitor closely 02/15/2025: Continue Lasix Entresto Beta fredi Aspirin Lovenox Monitor closely Physical therapy 02/16/2025: Change Lasix to p.o. Aspirin Lovenox Metoprolol Entresto Physical therapy Plan discussed with: Patient Date of Service: Feb 16, 2025 Billing Provider: PRIMO HARPER MD Common Visit Codes: NOT BILLABLE PRIMO HARPER MD Feb 16, 2025 09:58
[2025-02-16 13:00] VITALS: BP 94/61; PULSE 99; RESP 18; TEMP 98.2; O2SAT 97
[2025-02-16] MEDS ORDERED: METO25TA93 PO (13:27)
[2025-02-16] MEDS ORDERED: SACU1TAB PO (13:27)
[2025-02-16] MEDS ORDERED: FURO1TAB33 PO (13:27)
[2025-02-16] MEDS ORDERED: SPIR25TA PO (13:27)
--- NOTE | 2025-02-16 13:30 | DVHDS2 ---
Discharge Summary Date of Admission Feb 13, 2025 at 23:13 Date of Discharge: Feb 16, 2025 Labs/Diagnostic Data: Laboratory Results Test 02/16/25 05:17 02/15/25 05:21 02/14/25 04:38 02/14/25 01:30 Sodium Level 138 mmol/L (136-145) Potassium Level 4.6 mmol/L (3.5-5.1) Chloride Level 105 mmol/L (98-107) Carbon Dioxide Level 26 mmol/L (20-31) Anion Gap 7 (5-15) Blood Urea Nitrogen 37 mg/dL (9-23) Creatinine 1.37 mg/dL (0.700-1.30) Glomerular Filtration Rate Calc 56 mL/min (>90) BUN/Creatinine Ratio 27.0 (10.0-20.0) Serum Glucose 105 mg/dL (74-106) Calcium Level 9.1 mg/dL (8.7-10.4) Magnesium Level 2.3 mg/dL (1.6-2.6) Total Bilirubin 1.2 mg/dL (0.2-1.0) Aspartate Amino Transferase (AST) 93 U/L (13-40) Alanine Aminotransferase (ALT) 129 U/L (7-40) Alkaline Phosphatase 71 U/L (46-116) Total Protein 6.5 g/dL (5.7-8.2) Albumin 3.5 g/dL (3.2-4.8) White Blood Count 6.4 10^3/uL (4.4-10.8) Red Blood Count 3.63 10^6/uL (4.5-5.90) Hemoglobin 11.3 g/dL (13.5-17.5) Hematocrit 33.5 % (41.0-53.0) Mean Corpuscular Volume 92.4 fL (80.0-100.0) Mean Corpuscular Hemoglobin 31.0 pg (28.0-32.0) Mean Corpuscular Hemoglobin Concent 33.6 g/dL (32.0-36.0) Red Cell Distribution Width 15.3 % (11.8-14.3) Platelet Count 152 10^3/uL (140-450) Mean Platelet Volume 8.5 fL (6.9-10.8) Neutrophils (%) (Auto) 93.5 % (37.0-80.0) Lymphocytes (%) (Auto) 4.7 % (10.0-50.0) Monocytes (%) (Auto) 1.8 % (0.0-12.0) Eosinophils (%) (Auto) 0.0 % (0.0-7.0) Basophils (%) (Auto) 0.0 % (0.0-2.0) Neutrophils # (Auto) 6.0 10 ^3/uL (1.6-8.6) Lymphocytes # (Auto) 0.3 10 ^3/uL (0.4-5.4) Monocytes # (Auto) 0.1 10 ^3/uL (0-1.3) Eosinophils # (Auto) 0 10 ^3/uL (0-0.8) Basophils # (Auto) 0 10 ^3/uL (0-0.2) Nucleated Red Blood Cells 0.1 % Urine Color Light-yellow (Yellow) Urine Clarity Clear (Clear) Urine pH 5.0 (5.0-9.0) Urine Specific [place] 1.012 (1.001-1.035) Urine Protein Negative (Negative) Urine Ketones Negative (Negative) Urine Blood Negative /uL (Negative) Urine Nitrite Negative (Negative) Urine Bilirubin Negative (Negative) Urine Urobilinogen Normal mg/dL (Negative) Urine Leukocyte Esterase Negative /uL (Negative) Urine RBC None seen /hpf (0 - 3) Urine Microscopic WBC 2 /HPF (0-3) Urine Squamous Epithelial Cells Few /hpf (<5) Urine Bacteria None seen /hpf (None Seen) Urine Hyaline Casts Few /lpf (0 - 2) Urine Mucus Few (None Seen) Urine Glucose Normal mg/dL (Normal) Urine Opiates Screen Neg (NEGATIVE) Urine Fentanyl Screen Neg (NEGATIVE) Urine Barbiturates Screen Neg (NEGATIVE) Urine Phencyclidine Screen Neg (NEGATIVE) Urine Amphetamines Screen Pos (NEGATIVE) Urine Benzodiazepines Screen Neg (NEGATIVE) Urine Cocaine Screen Neg (NEGATIVE) Urine Cannabinoids Screen Pos (NEGATIVE) Test 02/13/25 21:30 02/13/25 19:57 02/13/25 18:09 02/13/25 18:06 Troponin I High Sensitivity 152 ng/L (</=54) Triglycerides Level 108 mg/dL (< 150) Cholesterol Level 107 mg/dL (< 200) LDL Cholesterol 61 mg/dL (< 100) HDL Cholesterol 31 mg/dL (40-59) Thyroid Stimulating Hormone (TSH) 2.82 uIU/mL (0.55-4.78) Plasma/Serum Blood Alcohol 4.1 mg/dL (<10) Lactic Acid Level 4.5 mmol/L (0.4-2.0) Hemoglobin A1c 5.8 % A1C (<5.7) B-Type Natriuretic Peptide 1156.22 pg/mL (0-100) Influenza Type A Antigen Negative (Negative) Influenza Type B Antigen Negative (Negative) SARS-CoV-2 Antigen (Rapid) Negative (NEGATIVE) Other Laboratory Tests 02/16/25 05:17 02/14/25 04:38 Brief Hx & Hospital Course: Final diagnoses: Acute hypoxic respiratory failure Acute on chronic congestive heart failure with reduced ejection fraction COPD Type 2 diabetes CKD NSTEMI type 2 Transaminitis He was admitted for acute hypoxic respiratory failure and fluid overload and was diuresed with IV Lasix His ejection fraction was 10-15% on the echocardiogram with a severely dilated left ventricle He felt better but his blood pressure was borderline low He was started on GDMT but he was not able to the lower tolerates the treatment very well He is asymptomatic He is on room air He can be discharged home on Entresto and Aldactone and Lasix and metoprolol Follow up with his primary care physician as soon as possible Condition at Discharge: Stable Final Diagnosis/Problems List Acute hypoxic respiratory failure Acute on chronic congestive heart failure with reduced ejection fraction COPD Type 2 diabetes CKD NSTEMI type 2 Transaminitis Discharge Disposition: Home SNF Discharge Will this Physician continue t: No Discharge Instruct/Medications Diet: Consistent carbohydrate, Cardiac 2g Na,low cholest Activity: No Restrictions, As Tolerated Follow Up/Referral: PCP TEVIN Medications: 20 mg daily Aldactone 25 mg daily Entresto half a tablet twice a day Metoprolol ER 25 mg daily Scheduled Empagliflozin (Jardiance), 10 MG PO DAILY Furosemide (Lasix), 1 TAB PO DAILY Methylprednisolone (Medrol Dosepak), 4 MG PO UD Metoprolol Succinate (Toprol Xl), 1 TAB PO DAILY Metoprolol Succinate (Metoprolol Succinate Er), 1 TAB PO DAILY Oxycodone W/ Acetaminophen (Percocet 5/325MG), 1 TAB PO BID Sacubitril-Valsartan (Entresto 24-26 mg), 0.5 TAB PO BID Sacubitril-Valsartan (Entresto 24-26 mg), 0.5 TAB PO BID Spironolactone (Aldactone), 25 MG PO DAILY Spironolactone (Aldactone), 1 TAB PO DAILY Tamsulosin Hcl (Flomax), 0.4 MG PO QPM Discharge Statement: "Patient was advised to return to the ER or call 911 if any headaches, dizziness, shortness of breath, chest pain, abdominal pain, bleeding, fevers, or worsening of medical condition. Patient was counseled about treatment plan, medications, possible side effects, patientverbalized understanding. All questions were answered to the best of my ability. This discharge took greater then 30 minutes in planning, reviewing documentation, counseling the patient, and discussing with other team members." ASSESSMENT ASSESSMENT Assessment Acute hypoxic respiratory failure Acute on chronic congestive heart failure with reduced ejection fraction COPD Type 2 diabetes CKD NSTEMI type 2 Transaminitis Date of Service: Feb 16, 2025 Billing Provider: PRIMO HARPER MD Common Visit Codes: NOT BILLABLE PRIMO HARPER MD Feb 16, 2025 13:30
[2025-02-16 13:56] VITALS: BP 97/65; PULSE 89; RESP 17; TEMP 36.8; O2SAT 97
--- NOTE | 2025-02-16 14:02 | DVHPN2 ---
Progress Note Date Seen: Feb 16, 2025 Medical Necessity Reason Pt with a Central, PICC or Fol: No Subjective Patient reports: Feels better Objective vital signs Vital Sign Date Time Temp Pulse Resp B/P (MAP) Pulse Ox O2 Delivery O2 Flow Rate FiO2 02/16/25 13:00 98.2 99 18 94/61 (72) 97 98.2 02/16/25 08:00 Room Air* 0 21 Total Intake and Output 02/15/25 02/15/25 02/16/25 15:00 23:00 07:00 Intake Total 475 ml 300 ml Output Total 2 ml Balance 473 ml 300 ml medications Current Medications Medications Dose Ordered Sig/Callie Route Start Time Stop Time Status Last Admin Dose Admin Enoxaparin Sodium 40 mg DAILY SC 02/14/25 10:00 02/16/25 09:33 40 MG Ondansetron HCl 4 mg Q4HPRN PRN IV 02/14/25 09:45 Acetaminophen 650 mg Q6HP PRN PO 02/14/25 09:45 Aspirin 81 mg DAILY PO 02/14/25 10:00 02/16/25 09:34 81 MG Sacubitril/ Valsartan 0.5 tab BID PO 02/14/25 22:00 02/15/25 09:41 0.5 TAB Metoprolol Succinate 25 mg DAILY PO 02/15/25 10:00 Furosemide 20 mg DAILY PO 02/17/25 10:00 Examination: GENERAL:Abnormal, LUNGS:Normal, CVS:Abnormal, SKIN:Normal laboratory and microbiology Laboratory Tests 02/16/25 05:17 02/14/25 04:38 Test 02/16/25 05:17 Range/Units Serum Glucose 105 74-106 mg/dL Microbiology Date/Time Source Procedure Growth Status 02/13/25 18:09 Blood Blood Culture - Preliminary NO GROWTH AFTER 48 HOURS OF INCUBATION. 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 rec new US kidney bladder possible nonobstructing right kidney stone strict I/O Plan discussed with: Patient My Orders My Orders Orders - BRYSON SCHMIDT MD Procedure Category Date Status Time Kidney US 02/15/25 Resulted 15:05 BRYSON SCHMIDT MD Feb 16, 2025 14:02
[2025-02-17] MEDS ORDERED: FUROSEMIDE 20 MG TAB PO SCH (10:00)
== END 2025-02-16 14:28 | disposition home or self-care (01) | DRG 280 ==
LOC: ER 17:14 → OVERFLOW 23:13 → EAST 23:53
PROVIDERS: ADMIT Internal Medicine Geriatric Medicine; ATTEND Internal Medicine Geriatric Medicine
DX: I50.43 Acute on chronic combined systolic (congestive) and diastolic (congestive) heart failure (principal); J96.01 Acute respiratory failure with hypoxia; I21.A1 Myocardial infarction type 2; J44.1 Chronic obstructive pulmonary disease with (acute) exacerbation; N17.9 Acute kidney failure, unspecified; I50.84 End stage heart failure; E11.22 Type 2 diabetes mellitus with diabetic chronic kidney disease; F15.10 Other stimulant abuse, uncomplicated; I42.0 Dilated cardiomyopathy; N18.2 Chronic kidney disease, stage 2 (mild); Z20.822 Contact with and (suspected) exposure to COVID-19; R74.01 Elevation of levels of liver transaminase levels; F17.210 Nicotine dependence, cigarettes, uncomplicated; Z80.1 Family history of malignant neoplasm of trachea, bronchus and lung; Z83.3 Family history of diabetes mellitus; Z91.199 Patient's noncompliance with other medical treatment and regimen due to unspecified reason; Z88.0 Allergy status to penicillin
CPT/HCPCS: 36415; 71045; 76775; 80048; 80053; 80061; 80307; 80320; 81001; 83036; 83605; 83735; 83880; 84443; 84484; 85025; 87040; 87426; 87804; 93005; 93306; 94640; 96365; 96375; 97163; 99291; G0378; J1956